=== PATIENT | female | born 1960 | race Caucasian/White ===

== ENCOUNTER → 2017-05-22 | Outpatient (CLI) | payer MEDICARE, BC ==
--- NOTE | 2017-05-22 11:20 | BD ---
EXAMINATION TYPE: MG DEXA axial skeleton. DATE OF EXAM: 05/22/2017 COMPARISON: NONE CLINICAL HISTORY: vitamin D deficiency Height: 5'3 1/2 Weight: 103 FRAX RISK QUESTIONS: Alcohol (3 or more units per day): no Family History (Parent hip fracture): no Glucocorticoids (More than 3mos): no (Ex: prednisone, prednisolone, methylprednisolone, dexamethasone, and hydrocortisone). History of Fracture in Adulthood: no Secondary Osteoporosis: 1. Type 1 Diabetes: no 2. Hyperthyroidism: no 3. Menopause before 45: yes 4. Malnutrition: no 5. Chronic liver disease: no Rheumatoid Arthritis: yes Current Tobacco Use: yes RISK FACTORS HISTORY OF: Diet low in dairy products/other sources of calcium: Postmenopausal woman: MEDICATIONS: Additional Medications: blood pressure, cholesterol, pain meds, muscle relaxers, folic acid, Additional History: EXAM MEASUREMENTS: Bone mineral densitometry was performed using the youcalc System. Bone mineral density as measured about the Lumbar spine is: ----- L1-L4(G/cm2): 1.103 T Score Values are as follows: ----- L2: -1.4 ----- L3: -0.3 ----- L4: 0.7 ----- L1-L4:-0.6 Bone mineral density about the R hip (g/cm2): 0.835 Bone mineral density about the L hip (g/cm2): 0.852 T Score values are as follows: -----R Neck: -1.5 -----L Neck: -1.3 -----R Total: -0.9 -----L Total: -0.9 IMPRESSION: Osteopenia (T Score between -2.5 and -1 ) as noted by T score values:L2, Jorge Hips There is slightly increased risk of fracture and the patient may be considered for treatment. Re-Screen 2-5 years. NOTE: T-SCORE=SD OF THE YOUNG ADULT MEAN.
== END | disposition home or self-care (01) ==
LOC: RADBDWWP 09:12
PROVIDERS: ATTEND Psychiatry & Neurology Neurology
DX: Z01.818 Encounter for other preprocedural examination (principal); M85.89 Other specified disorders of bone density and structure, multiple sites; E55.9 Vitamin D deficiency, unspecified
CPT/HCPCS: 77080

== ENCOUNTER → 2017-05-28 | Outpatient (CLI) | payer MEDICARE, BC ==
[2017-05-28 18:22] LABS: Prothrombin Time 10.2 sec (9.0-12.0)
[2017-05-28 18:24] LABS: Appearance,Urine Clear (Clear); Bilirubin,Urine Negative (Negative); Glucose,Urine (UA) Negative (Negative); Ketones,Urine Negative (Negative); Leukocyte Esterase,Urine Negative (Negative); Nitrite,Urine Negative (Negative); PH, Urine 6.5 (5.0-8.0); Protein,Urine Negative (Negative); Specific Gravity,Urine 1.008 (1.001-1.035); UA Billing (MACRO vs. MICRO) CHEM; Urobilinogen,Urine <2.0 mg/dL (<2.0)
--- NOTE | 2017-05-28 18:25 | CT ---
EXAMINATION TYPE: CT CervThoracic spine wo con DATE OF EXAM: 05/28/2017 COMPARISON: CT scan cervical spine 05/02/2014 HISTORY: Patient complains of chronic neck pain. CT DLP: 482.1 mGycm Automated exposure control for dose reduction was used. FINDINGS: There is straightening of the cervical spine with multilevel old fusion surgery from C4 to C7. There is 2 mm anterior subluxation of C7 in relation to T1 with kyphotic deformity. There is posterior fusi on surgery at C6-7. There is narrowing at C7-T1 disc space with anterior spurring and vacuum disc. I see no acute fracture. Thoracic vertebra have fairly normal alignment. There is minor spurring of the endplates. Posterior e lements are intact. There is no thoracic paraspinal mass. I see no thoracic compression fracture. Pos terior elements of the thoracic spine are intact. IMPRESSION: MULTILEVEL FUSION SURGERY FROM C4 TO C7. THERE IS A MILD C6-7 SUBLUXATION 3 MM DEFORMITY WITH THE FUS ION. SINCE THE LAST CT SCAN THERE IS DEVELOPMENT OF A KYPHOTIC CURVATURE AND MILD SUBLUXATION DEFORMITY AT C7-T1 WITH DISC SPACE NARROWING AND VACUUM DISC. NO FRACTURE IS SEEN. THIS IS EVIDENCE OF A DEVELOPI NG INSTABILITY. NO COMPRESSION FRACTURE SEEN IN THE CERVICAL AND THORACIC SPINE.
[2017-05-28 18:33] LABS: Basophils # (A) 0.1 k/uL (0-0.2); Basophils % (A) 1 %; CH 38.2; CHCM 32.5; Eosinophils # (A) 0.1 k/uL (0-0.7); Eosinophils % (A) 1 %; HCT 51.6 % (34.0-46.0); HDW 2.13; HGB 16.7 gm/dL (11.4-16.0); Luc # (Auto) 0.13; Luc % (Auto) 2; Lymphocytes # (A) 2.3 k/uL (1.0-4.8); Lymphocytes % (A) 27 %; MCH 38.2 pg (25.0-35.0); MCHC 32.4 g/dL (31.0-37.0); MCV 117.9 fL (80.0-100.0); Macrocytosis Marked; Mean Platelet Volume 7.8; Monocytes # (A) 0.6 k/uL (0-1.0); Monocytes % (A) 7 %; Neutrophils # (A) 5.4 k/uL (1.3-7.7); Neutrophils % (A) 62 %; RBC 4.38 m/uL (3.80-5.40); RDW 12.1 % (11.5-15.5); WBC 8.6 k/uL (3.8-10.6); WBC (Perox) 8.82
[2017-05-28 18:53] LABS: Potassium 4.1 mmol/L (3.5-5.1); Total Bilirubin 0.4 mg/dL (0.2-1.3); Total Protein 7.2 g/dL (6.3-8.2)
[2017-05-28 18:55] LABS: Manual Review Performed; Stomatocytes Present
--- NOTE | 2017-05-28 19:19 | CT ---
EXAMINATION TYPE: CT angio head neck DATE OF EXAM: 05/28/2017 HISTORY: Patient complains of chronic neck pain. COMPARISON: NONE CT DLP: 201.5 mGycm. Automated Exposure Control for Dose Reduction was Utilized. TECHNIQUE: CTA scan of the neck is performed with IV Contrast, patient injected with 65 mL of Omnipa que 350, axial images are obtained, coronal and sagittal reformatted images are reviewed. Three-D rec onstructed images are created on an independent workstation and reviewed. FINDINGS: There is normal branching pattern of the great vessels on the aortic arch. There is bilateral patency of the vertebral arteries which are fairly symmetric. There is patency of the common internal and external carotid arteries bilaterally. There is atheroscl erotic plaque at the carotid artery bifurcations. There is luminal narrowing of approximately 40% at the origin of the right internal carotid artery. There is lumen narrowing of 25% at the origin left i nternal carotid artery. There is no evidence of carotid dissection. There is arterial flow in the [place] tebrobasilar artery system. Jugular veins appear normal at the skull base. CONCLUSION: Mild atherosclerotic vascular disease. Mild stenosis at the origins of the internal carotid arteries as above.
[2017-05-29 04:06] LABS: Iron Saturation 39.39 (12.00-45.00); Iron(FE) 130 ug/dL (50-170); Total Iron Binding Capacity 330 ug/dL (228-460)
== END | disposition home or self-care (01) ==
LOC: RADCTMAIN 17:00
PROVIDERS: ATTEND Psychiatry & Neurology Neurology
DX: S13.171A Dislocation of C6/C7 cervical vertebrae, initial encounter (principal); S13.181A Dislocation of C7/T1 cervical vertebrae, initial encounter; M48.03 Spinal stenosis, cervicothoracic region; I65.23 Occlusion and stenosis of bilateral carotid arteries; Z01.812 Encounter for preprocedural laboratory examination; I10 Essential (primary) hypertension; E53.8 Deficiency of other specified B group vitamins; E55.9 Vitamin D deficiency, unspecified; Z13.9 Encounter for screening, unspecified; Z98.1 Arthrodesis status
CPT/HCPCS: 84134; 86803; 80061; 80053; 82607; 82728; 83540; 83550; 85025; 85610; 81003; 84466; 82306; 83036; 72128; 72125; 70496; 70498; 36415; Q9967

== ENCOUNTER 2017-09-23 15:05 | Inpatient (IN) | payer MEDICARE, BC ==
[2017-09-23] MEDS ORDERED: SODIUM CHLORIDE 0.9% 1,000 ML IV STA (15:13)
[2017-09-23] MEDS ORDERED: MAGNESIUM SULFATE-D5W PMX 1 GM in DEXTROSE/WATER 1 100ML.BAG IVPB ONE (15:15)
--- NOTE | 2017-09-23 15:19 | ED ---
URI HPI - General Chief Complaint: Upper Respiratory Infection Stated Complaint: LEONARDO Time Seen by Provider: 09/23/17 15:05 Source: patient, RN notes reviewed Mode of arrival: EMS Limitations: no limitations - History of Present Illness Initial Comments: This is a 56-year-old female history of chronic asthmatic bronchitis who states she had the onset about 6 days ago of some shortness of breath cough and she states rhinorrhea when she would take her updraft treatments she was started on Levaquin 500 mg as well as a nebulizer treatment. She states she's gotten progressively worse he was seen by her doctor yesterday and started on 750 mg of Levaquin and other medication. She states she get worse EMS was called today he had a pulse ox of about 70% on room air she had very diminished breath sounds after an updraft was at home she was given a second DuoNeb treatment in route by EMS. She is starting get some increased lung sounds and improvement in her pulse oximetry. She also had a temperature 103 over last 1 or 2 days. No overt phlegm production he does have some occasional chest discomfort she states it was more last week when the symptoms started nothing at this time. No other constitutional symptoms reported at this time. MD Complaint: fever, cough - Related Data Home Medications Medication Instructions Recorded Confirmed Butalbit/Acetamin/Caff/Codeine 1 cap PO TID PRN 11/27/13 09/23/17 [Fioricet W/Codeine 83-65-157-40 Cap] Cholecalciferol [Vitamin D3] 2,000 unit PO DAILY 11/27/13 09/23/17 Folic Acid 1 mg PO DAILY 11/27/13 09/23/17 Ondansetron HCl [Zofran] 8 mg PO TID PRN 11/27/13 09/23/17 Pantoprazole Sodium [Protonix] 40 mg PO BID 11/27/13 09/23/17 Pyridoxine [Vitamin B-6] 100 mg PO DAILY 11/27/13 09/23/17 Sennosides-Docusate Sodium 2 tab PO HS 11/27/13 09/23/17 [Senokot-S] Zolpidem [Ambien] 10 mg PO HS 11/27/13 09/23/17 valACYclovir HCL [Valtrex] 1,000 mg PO DAILY 11/27/13 09/23/17 Baclofen [Lioresal] 10 mg PO BID 05/02/14 09/23/17 Baclofen 20 mg PO HS 07/21/14 09/23/17 ALPRAZolam [Xanax] 0.5 mg PO BID 09/23/17 09/23/17 ALPRAZolam [Xanax] 1 mg PO HS 09/23/17 09/23/17 Calcium/Magnesium 1 cap PO BID 09/23/17 09/23/17 Cyanocobalamin [Vitamin B-12 1,000 mcg SQ Q14D 09/23/17 09/23/17 Injection] Ferrous Sulfate [Feosol] 325 mg PO DAILY 09/23/17 09/23/17 Gabapentin [Neurontin] 100 mg PO TID 09/23/17 09/23/17 Hydrochlorothiazide [Hydrodiuril] 25 mg PO DAILY 09/23/17 09/23/17 Ipratropium-Albuterol Nebulize 3 ml INHALATION RT-QID PRN 09/23/17 09/23/17 [Duoneb 0.5 mg-3 mg/3 ml Soln] Levofloxacin [Levaquin] 500 mg PO DAILY 09/23/17 09/23/17 Levothyroxine Sodium [Synthroid] 50 mcg PO DAILY 09/23/17 09/23/17 Melatonin 10 mg PO HS 09/23/17 09/23/17 Mometasone/Formoterol [Dulera 200 2 puff INHALATION RT-BID 09/23/17 09/23/17 Mcg/5 Mcg Inhaler] Nebivolol HCl [Bystolic] 20 mg PO DAILY 09/23/17 09/23/17 amLODIPine [Norvasc] 2.5 mg PO HS 09/23/17 09/23/17 amLODIPine [Norvasc] 5 mg PO DAILY 09/23/17 09/23/17 cycloSPORINE [Restasis] 1 drop BOTH EYES BID 09/23/17 09/23/17 oxyCODONE-APAP 10-325MG [Percocet 1 tab PO QID PRN 09/23/17 09/23/17 10-325 mg] Allergies Allergy/AdvReac Type Severity Reaction Status Date / Time enoxaparin sodium Allergy Severe "welts" Verified 09/23/17 16:50 [From Lovenox] morphine sulfate Allergy Severe uncontroled Verified 09/23/17 16:50 [From Shania] muscles pregabalin [From Lyrica] Allergy Severe Swelling,rash Verified 09/23/17 16:50 all over body amoxicillin [From Augmentin] Allergy Unknown Verified 09/23/17 16:50 atomoxetine HCl Allergy Rash/Hives Verified 09/23/17 16:50 [From Strattera] ceftriaxone [From Rocephin] Allergy Unknown Verified 09/23/17 16:50 cefuroxime [From Ceftin] Allergy Unknown Verified 09/23/17 16:50 clarithromycin [From Biaxin] Allergy Rash/Hives Verified 09/23/17 16:50 clavulanic acid Allergy Unknown Verified 09/23/17 16:50 [From Augmentin] duloxetine HCl Allergy Rash/Hives Verified 09/23/17 16:50 [From Cymbalta] fentanyl Allergy Unknown Verified 09/23/17 16:50 metoprolol Allergy Unknown Verified 09/23/17 16:50 NSAIDS (Non-Steroidal Allergy bleeding Verified 09/23/17 16:50 Anti-Inflamma ulcer valsartan [From Diovan] Allergy Unknown Verified 09/23/17 16:50 warfarin sodium Allergy Rash/Hives Verified 09/23/17 16:50 [From Coumadin] axetil Allergy Rash/Hives Uncoded 09/23/17 15:11 Review of Systems ROS Statement: Those systems with pertinent positive or pertinent negative responses have been documented in the HPI. ROS Other: All systems not noted in ROS Statement are negative. Past Medical History Past Medical History: Fibromyalgia, GERD/Reflux, Hypertension, Osteoarthritis ( OA), Pneumonia, Renal Disease Additional Past Medical History / Comment(s): degenerative disc disease; ARTHRITIS; MIGRAINES:inner ear equilbrium issue, some renal stenosis, Reynauds disease History of Any Multi-Drug Resistant Organisms: None Reported Past Surgical History: Appendectomy, Cholecystectomy, Hysterectomy, Orthopedic Surgery, Tubal Ligation Additional Past Surgical History / Comment(s): 3 cervical fusions. ovarian cystMENISCUS SX; SHOULDER SX; CARPAL TUNNEL SX Past Anesthesia/Blood Transfusion Reactions: Motion Sickness Past Psychological History: No Psychological Hx Reported Smoking Status: Former smoker Past Alcohol Use History: Occasional Past Drug Use History: None Reported - Past Family History Father Family Medical History: Cancer Mother Family Medical History: Deep Vein Thrombosis (DVT) General Exam - General Exam Comments Initial Comments: This is a well-developed asthenic awake alert oriented 3 female she is in some distress. There is audible wheezing without auscultation. Limitations: no limitations General appearance: alert, in no apparent distress Head exam: Present: atraumatic, normocephalic, normal inspection Eye exam: Present: normal appearance, PERRL, EOMI. Absent: scleral icterus, conjunctival injection, periorbital swelling ENT exam: Present: mucous membranes dry Neck exam: Present: normal inspection. Absent: tenderness, meningismus, lymphadenopathy Respiratory exam: Present: respiratory distress, wheezes, chest wall tenderness , accessory muscle use, decreased breath sounds. Absent: rales, rhonchi, stridor Cardiovascular Exam: Present: normal rhythm, tachycardia, normal heart sounds. Absent: systolic murmur, diastolic murmur, rubs, gallop, clicks GI/Abdominal exam: Present: soft, normal bowel sounds. Absent: distended, tenderness, guarding, rebound, rigid Extremities exam: Present: normal inspection, full ROM, normal capillary refill. Absent: tenderness, pedal edema, joint swelling, calf tenderness Back exam: Present: normal inspection Neurological exam: Present: alert, oriented X3, CN II-XII intact Psychiatric exam: Present: normal affect, normal mood Skin exam: Present: warm, dry, intact, normal color. Absent: rash Course Vital Signs 18 18 15:07 17:11 Temperature 102.1 F H 100.1 F H Pulse Rate 101 H 86 Respiratory 24 24 Rate Blood Pressure 98/55 102/55 O2 Sat by Pulse 93 L 94 L Oximetry - Reevaluation(s) Reevaluation #1: 09/23/17 17:18 Patient shortly after arrival revealed diffuse wheezing patient states she felt somewhat better. Reevaluation #2: 09/23/17 17:20 Reevaluation showed no change in patient's status no major improvement however she is not any worse. He does state she feels a little bit better with respect to her breathing. Medical Decision Making - Medical Decision Making Patient does not have a elevated white count she doesn't have a fever when she came in. There is patchy infiltrates noted. This is consistent with CHF however due to the fever pneumonia as not ruled out I did discuss case with Dr. Cooper patient will be admitted - Lab Data Result diagrams: 09/23/17 15:49 09/23/17 15:49 Lab Results 09/23/17 09/23/17 09/23/17 Range/Units 15:49 15:49 15:49 WBC 8.6 (3.8-10.6) k/uL RBC 3.57 L (3.80-5.40) m/uL Hgb 13.1 (11.4-16.0) gm/dL Hct 38.1 (34.0-46.0) % MCV 106.6 H (80.0-100.0) fL MCH 36.6 H (25.0-35.0) pg MCHC 34.3 (31.0-37.0) g/dL RDW 12.0 (11.5-15.5) % Plt Count 189 (150-450) k/uL Neutrophils % 85 % Lymphocytes % 8 % Monocytes % 5 % Eosinophils % 0 % Basophils % 0 % Neutrophils # 7.3 (1.3-7.7) k/uL Lymphocytes # 0.7 L (1.0-4.8) k/uL Monocytes # 0.4 (0-1.0) k/uL Eosinophils # 0.0 (0-0.7) k/uL Basophils # 0.0 (0-0.2) k/uL Macrocytosis Slight PT (9.0-12.0) sec INR (<1.2) APTT (22.0-30.0) sec D-Dimer (<0.60) mg/L FEU Sodium 133 L (137-145) mmol/L Potassium 3.5 (3.5-5.1) mmol/L Chloride 95 L (98-107) mmol/L Carbon Dioxide 29 (22-30) mmol/L Anion Gap 9 mmol/L BUN 17 (7-17) mg/dL Creatinine 0.90 (0.52-1.04) mg/dL Est GFR (CKD-EPI)AfAm 84 (>60 ml/min/1.73 sqM) Est GFR (CKD-EPI)NonAf 73 (>60 ml/min/1.73 sqM) Glucose 90 (74-99) mg/dL Plasma Lactic Acid Carlos (0.7-2.0) mmol/L Calcium 8.1 L (8.4-10.2) mg/dL Magnesium 1.6 (1.6-2.3) mg/dL Total Bilirubin 0.8 (0.2-1.3) mg/dL AST 49 H (14-36) U/L ALT 38 (9-52) U/L Alkaline Phosphatase 232 H (38-126) U/L Total Creatine Kinase 192 H (30-135) U/L CK-MB (CK-2) 4.0 H* (0.0-2.4) ng/mL CK-MB (CK-2) Rel Index 2.1 Troponin I <0.012 (0.000-0.034) ng/mL NT-Pro-B Natriuret Pep pg/mL Total Protein 5.2 L (6.3-8.2) g/dL Albumin 2.8 L (3.5-5.0) g/dL Influenza Type A RNA (Not Detectd) Influenza Type B (PCR) (Not Detectd) 09/23/17 09/23/17 09/23/17 Range/Units 15:49 15:49 15:49 WBC (3.8-10.6) k/uL RBC (3.80-5.40) m/uL Hgb (11.4-16.0) gm/dL Hct (34.0-46.0) % MCV (80.0-100.0) fL MCH (25.0-35.0) pg MCHC (31.0-37.0) g/dL RDW (11.5-15.5) % Plt Count (150-450) k/uL Neutrophils % % Lymphocytes % % Monocytes % % Eosinophils % % Basophils % % Neutrophils # (1.3-7.7) k/uL Lymphocytes # (1.0-4.8) k/uL Monocytes # (0-1.0) k/uL Eosinophils # (0-0.7) k/uL Basophils # (0-0.2) k/uL Macrocytosis PT 10.8 (9.0-12.0) sec INR 1.1 (<1.2) APTT 27.6 (22.0-30.0) sec D-Dimer 0.64 H (<0.60) mg/L FEU Sodium (137-145) mmol/L Potassium (3.5-5.1) mmol/L Chloride (98-107) mmol/L Carbon Dioxide (22-30) mmol/L Anion Gap mmol/L BUN (7-17) mg/dL Creatinine (0.52-1.04) mg/dL Est GFR (CKD-EPI)AfAm (>60 ml/min/1.73 sqM) Est GFR (CKD-EPI)NonAf (>60 ml/min/1.73 sqM) Glucose (74-99) mg/dL Plasma Lactic Acid Carlos (0.7-2.0) mmol/L Calcium (8.4-10.2) mg/dL Magnesium (1.6-2.3) mg/dL Total Bilirubin (0.2-1.3) mg/dL AST (14-36) U/L ALT (9-52) U/L Alkaline Phosphatase (38-126) U/L Total Creatine Kinase (30-135) U/L CK-MB (CK-2) (0.0-2.4) ng/mL CK-MB (CK-2) Rel Index Troponin I (0.000-0.034) ng/mL NT-Pro-B Natriuret Pep 5020 pg/mL Total Protein (6.3-8.2) g/dL Albumin (3.5-5.0) g/dL Influenza Type A RNA Not Detected (Not Detectd) Influenza Type B (PCR) Not Detected (Not Detectd) 09/23/17 Range/Units 15:49 WBC (3.8-10.6) k/uL RBC (3.80-5.40) m/uL Hgb (11.4-16.0) gm/dL Hct (34.0-46.0) % MCV (80.0-100.0) fL MCH (25.0-35.0) pg MCHC (31.0-37.0) g/dL RDW (11.5-15.5) % Plt Count (150-450) k/uL Neutrophils % % Lymphocytes % % Monocytes % % Eosinophils % % Basophils % % Neutrophils # (1.3-7.7) k/uL Lymphocytes # (1.0-4.8) k/uL Monocytes # (0-1.0) k/uL Eosinophils # (0-0.7) k/uL Basophils # (0-0.2) k/uL Macrocytosis PT (9.0-12.0) sec INR (<1.2) APTT (22.0-30.0) sec D-Dimer (<0.60) mg/L FEU Sodium (137-145) mmol/L Potassium (3.5-5.1) mmol/L Chloride (98-107) mmol/L Carbon Dioxide (22-30) mmol/L Anion Gap mmol/L BUN (7-17) mg/dL Creatinine (0.52-1.04) mg/dL Est GFR (CKD-EPI)AfAm (>60 ml/min/1.73 sqM) Est GFR (CKD-EPI)NonAf (>60 ml/min/1.73 sqM) Glucose (74-99) mg/dL Plasma Lactic Acid Carlos 1.1 (0.7-2.0) mmol/L Calcium (8.4-10.2) mg/dL Magnesium (1.6-2.3) mg/dL Total Bilirubin (0.2-1.3) mg/dL AST (14-36) U/L ALT (9-52) U/L Alkaline Phosphatase (38-126) U/L Total Creatine Kinase (30-135) U/L CK-MB (CK-2) (0.0-2.4) ng/mL CK-MB (CK-2) Rel Index Troponin I (0.000-0.034) ng/mL NT-Pro-B Natriuret Pep pg/mL Total Protein (6.3-8.2) g/dL Albumin (3.5-5.0) g/dL Influenza Type A RNA (Not Detectd) Influenza Type B (PCR) (Not Detectd) - EKG Data -: EKG Interpreted by [place] EKG shows normal: sinus rhythm (Sinus rhythm rate of 100. Interval 146 QRS duration 68 QT since QTC 332/428 by atrial enlargement nonspecific septal changes. Artifact is present a single unifocal PVC was noted.) - Radiology Data Radiology results: report reviewed (Review the x-ray shows evidence of patchy infiltrates), image reviewed Critical Care Time Critical Care Time: Yes Critical Care Time: 39 minutes which includes monitoring the EMS run and discussed with paramedics history physical labs x-rays. Several reevaluation patient responsive therapy. Discussion with the patient regarding findings discussion with the admitting physician admission orders and documentation of the above Disposition Clinical Impression: Congestive heart failure (CHF), Chronic obstructive pulmonary disease with acute exacerbation, Pneumonia, Febrile illness, acute, Failure of outpatient treatment Disposition: ADMITTED IP TO THIS [facility] Condition: Stable Referrals: Deandre Landa MD [Primary Care Provider] - 1-2 days
[2017-09-23 16:11] LABS: Basophils % (A) 0 %; Eosinophils % (A) 0 %; HCT 38.1 % (34.0-46.0); HGB 13.1 gm/dL (11.4-16.0); Lymphocytes # (A) 0.7 k/uL (1.0-4.8); Lymphocytes % (A) 8 %; MCH 36.6 pg (25.0-35.0); MCHC 34.3 g/dL (31.0-37.0); MCV 106.6 fL (80.0-100.0); Macrocytosis Slight; Monocytes # (A) 0.4 k/uL (0-1.0); Monocytes % (A) 5 %; Neutrophils # (A) 7.3 k/uL (1.3-7.7); Neutrophils % (A) 85 %; Platelet Count 189 k/uL (150-450); RBC 3.57 m/uL (3.80-5.40); WBC 8.6 k/uL (3.8-10.6)
--- NOTE | 2017-09-23 16:18 | XR ---
EXAMINATION TYPE: XR chest 2V DATE OF EXAM: 09/23/2017 COMPARISON: 08/05/2014 HISTORY: 56-year-old female with shortness of breath and difficulty breathing TECHNIQUE: PA and lateral views FINDINGS: Heart upper limits of normal size. Hyperinflation. Diffuse interstitial and patchy airspace densities throughout the lungs, right greater than left. No pleural effusion. IMPRESSION: Patchy infiltrates throughout the lungs, right greater than left. Correlate for pneumonia including a typical infections and interstitial pneumonitis. The lack of cardiomegaly and effusions argues agains t CHF. Clinically correlate.
[2017-09-23] MEDS ORDERED: ACETAMINOPHEN TAB 325 MG TAB PO STA (16:19)
[2017-09-23 16:20] LABS: Albumin 2.8 g/dL (3.5-5.0); Calcium 8.1 mg/dL (8.4-10.2); Magnesium 1.6 mg/dL (1.6-2.3); Potassium 3.5 mmol/L (3.5-5.1); Total Bilirubin 0.8 mg/dL (0.2-1.3); Total Protein 5.2 g/dL (6.3-8.2)
[2017-09-23 16:26] LABS: D-Dimer 0.64 mg/L FEU (<0.60); INR 1.1 (<1.2); Partial Thromboplastin Time 27.6 sec (22.0-30.0); Prothrombin Time 10.8 sec (9.0-12.0)
[2017-09-23 16:42] LABS: Creatine Kinase 192 U/L (30-135)
[2017-09-23 16:55] LABS: Troponin I <0.012 ng/mL (0.000-0.034)
[2017-09-23] MEDS ORDERED: LEVOFLOXACIN 750MG-D5W PMX 750 MG in DEXTROSE/WATER 1 150ML.BAG IVPB STA (17:22)
[2017-09-23] MEDS ORDERED: FUROSEMIDE 10 MG/ML 4 ML VIAL IV STA (17:24)
[2017-09-23] MEDS: SODIUM CHLORIDE 0.9% 1,000 ML IV SCH (18:06)
[2017-09-23] MEDS ORDERED: NALOXONE 0.4 MG/ML 1 ML VIAL IV PRN (18:46)
[2017-09-23] MEDS ORDERED: LORazepam 0.5 MG TAB PO PRN (18:46)
[2017-09-23] MEDS ORDERED: MELATONIN 3 MG TABLET PO PRN (18:46)
[2017-09-23] MEDS ORDERED: methylPREDNISolone SOD SUCCI 125 MG/2 ML VIAL IV SCH (19:30)
[2017-09-23] MEDS: IPRATROPIUM-ALBUTEROL 3 ML NEB INHALATION SCH ×2 (19:49→23:49)
[2017-09-23] MEDS: ONDANSETRON 4 MG/2 ML VIAL IVP PRN (20:27)
[2017-09-23] MEDS: PANTOPRAZOLE 40 MG TABLET PO SCH (21:21)
[2017-09-23 21:25] LABS: Glucose,Whole Blood 168 mg/dL (75-99)
[2017-09-23] MEDS ORDERED: HEPARIN SODIUM,PORCINE 5,000 UNIT/ML 1 ML VIAL SQ SCH (22:45)
[2017-09-23] MEDS: ZOLPIDEM 10 MG TAB PO SCH (22:54)
[2017-09-23] MEDS: amLODIPine 2.5 MG TAB PO SCH (22:54)
[2017-09-23] MEDS: ALPRAZolam 1 MG TAB PO SCH (22:54)
[2017-09-23] MEDS: SENNOSIDES-DOCUSATE SODIUM 1 EACH TAB PO SCH (22:54)
[2017-09-23] MEDS: MELATONIN 5 MG TABLET PO SCH (22:56)
[2017-09-23] MEDS: BACLOFEN 10 MG TAB PO SCH (22:56)
[2017-09-23] MEDS: cycloSPORINE 0.05% OPHTH 0.4 ML DROPERETTE BOTH EYES SCH (22:57)
[2017-09-23] MEDS: GABAPENTIN 100 MG CAP PO SCH (22:57)
[2017-09-23] MEDS: CALCIUM CARB-MAG CARB-FOLIC 1 EACH TAB PO SCH (22:58)
[2017-09-23] MEDS: oxyCODONE-APAP 10-325MG 1 EACH TAB PO PRN (22:58)
[2017-09-23] MEDS: guaiFENesin 600 MG TABLET.ER PO SCH (23:04)
[2017-09-23] MEDS: HEPARIN SODIUM,PORCINE 5,000 UNIT/ML 1 ML VIAL SQ SCH (23:04)
--- NOTE | 2017-09-23 23:51 | HP ---
HISTORY AND PHYSICAL DATE OF ADMISSION: September 23, 2017 PRESENT COMPLAINT: Cough, short of breath. HISTORY OF PRESENTING COMPLAINT: This is a pleasant 56-year-old patient of Dr. Landa whose chronic stable medical conditions include chronic pain, fibromyalgia, GERD, hypertension, osteoarthritis, Raynaud's. The patient was going to see family doctor Dr. Landa last Saturday with some respiratory symptoms and was given Levaquin 500 mg. Symptoms did get better. She was having 1 more cough. Initially dry. Started having fever, chills, decreased appetite. Tired, run down. She went back, dose of Levaquin was increased. As the patient started feeling more congested and started bringing up phlegm yellow-green color and even having more fevers, she finally decided to come in, feeling weak, tired, run down. REVIEW OF SYSTEMS: Constitutional: Fever, chills. HEENT as above. Respiratory as above. Cardiovascular none. Gastrointestinal heartburn. Genitourinary none. MUSCULOSKELETAL: Aches and pains in joints. Dermatological and hematologic, lymphatic none. Psychiatry none. Neurological none. Musculoskeletal: Aches and pains in muscles and joints. PAST MEDICAL HISTORY: COPD, panic attacks, chronic pain, fibromyalgia, GERD, hypertension, osteoarthritis, Raynaud. PAST SURGICAL HISTORY: Appendectomy, back surgery, cholecystectomy, hysterectomy, orthopedic surgery, tubal ligation, cervical fusion, shoulder surgery, carpal tunnel surgery. SOCIAL HISTORY: The patient lives with her and daughter, medically disabled. The patient smoked for about 35 years about a pack a day, stopped about 2 years ago. FAMILY HISTORY: Of cancer and bilateral renal artery stenosis. HOME MEDICATIONS: 1. Valtrex 1000 mg p.o. daily. 2. Percocet 10 1 tab p.o. q.i.d. p.r.n. 3. Restasis 1 drop both eyes b.i.d. 4. Norvasc 5 mg p.o. daily. 5. Norvasc 2.5 mg p.o. q.h.s. 6. Ambien 10 mg p.o. q.h.s. 7. Senokot-S 2 tablets p.o. q.h.s. 8. Vitamin B6 100 mg p.o. daily. 9. Protonix 40 mg p.o. b.i.d. 10.Zofran 8 mg p.o. t.i.d. p.r.n. 11.Bystolic 20 mg p.o. daily. 12.Dulera 200/5 2 puffs b.i.d. 13.Melatonin 10 mg q.h.s. 14.Synthroid 50 mcg p.o. daily. 15.Levaquin 500 mg p.o. daily. 16.DuoNeb 3 mL q.i.d. p.r.n. 17.Hydrochlorothiazide 25 mg p.o. daily. 18.Neurontin 100 mg p.o. t.i.d. 19.Folic acid 1 mg p.o. daily. 20.Iron 325 p.o. daily. 21.Vitamin B12 1000 mcg subcu every 14 days. 22.Vitamin D3 2000 units p.o. daily. 23.Calcium/magnesium supplement. 24.Fioricet 1 capsule t.i.d. p.r.n. 25.Baclofen 10 mg b.i.d. 26.Baclofen 20 mg q.h.s. 27.Xanax 0.5 p.o. b.i.d. and 1 mg p.o. q.h.s. ALLERGIES: LIST IS LONG TO INCLUDE LOVENOX, MORPHINE, LYRICA, AMOXICILLIN AND CEFTRIAXONE, CEFUROXIME, BIAXIN AND AUGMENTIN, CYMBALTA, FENTANYL, METOPROLOL, IRON SULFATE, LOSARTAN, , . PHYSICAL EXAMINATION: Temperature 102.1, pulse 101, respirations 24, blood pressure 98/55, pulse ox 93% on 2 L. General appearance: Very thin built, sitting up, tired appearing. BMI 17.9. Eyes pupil equals. Conjunctivae pale. HEENT external appearance of nose and ears normal. Oral cavity normal. Neck JVD not raised. Mass not palpable. Respiratory effort increased. Lungs decreased breath sounds. Prolonged expiration. Bilateral basal crackles. Cardiovascular 1st 2nd sounds normal. No edema. ABDOMEN: Soft, nontender. Liver and spleen not palpable. Lymphatics: No lymph nodes palpable in the neck, axillae or groin. PSYCHIATRY: Alert and oriented x3. Mood and affect anxious-appearing. Neurological: Pupils equal. Cranial nerves grossly intact. Power and sensation grossly intact. Musculoskeletal: Diffuse wasting of the muscles. Bony prominences. INVESTIGATIONS: White count 8.6, hemoglobin 13.1, platelets 189. Potassium 3.5 BUN and creatinine is normal. AST 14, ALT 38, albumin 2.8. Chest x-ray, bilateral infiltrates. ASSESSMENT: 1. Bilateral multilobar pneumonia suspect gram-negative organism causing sepsis. 2. Acute chronic obstructive pulmonary disease exacerbation in an ex-smoker. 3. Chronic pain syndrome. 4. Gastroesophageal reflux disease. 5. Essential hypertension. 6. Primary osteoarthritis multiple joints bilateral. 7. Raynaud's disease. 8. Moderate protein -calorie malnutrition with albumin 2.8, BMI 17.9 diffuse wasting of the muscles. PLAN: Patient is put on IV Levaquin for now. Blood cultures were done. Home medications are resumed. We will also add some Mucinex and a sputum for Gram stain and culture. Consultation to Pulmonary is being made. Prognosis guarded. Care was discussed with the patient. Copy to Dr. Landa. MMFELIPEL / WILBERT: [id number] /
[2017-09-24] MEDS: FUROSEMIDE 10 MG/ML 4 ML VIAL IV SCH ×4 (01:28→23:29)
[2017-09-24] MEDS: IPRATROPIUM-ALBUTEROL 3 ML NEB INHALATION SCH ×5 (03:52→21:08)
[2017-09-24] MEDS: ALPRAZolam 0.5 MG TAB PO SCH ×2 (06:26→16:46)
[2017-09-24] MEDS: LEVOTHYROXINE 50 MCG TAB PO SCH (06:29)
[2017-09-24] MEDS: PANTOPRAZOLE 40 MG TABLET PO SCH ×2 (06:29→16:46)
[2017-09-24] MEDS: BACLOFEN 10 MG TAB PO SCH ×3 (06:29→23:27)
[2017-09-24 06:36] LABS: Glucose,Whole Blood 122 mg/dL (75-99)
[2017-09-24] MEDS: INSULIN ASPART 100 UNIT/ML 1 ML 10 ML VIAL SQ SCH ×4 (06:37→23:08)
[2017-09-24] MEDS: oxyCODONE-APAP 10-325MG 1 EACH TAB PO PRN ×2 (07:01→22:16)
[2017-09-24] MEDS: GABAPENTIN 100 MG CAP PO SCH ×3 (08:42→23:28)
[2017-09-24] MEDS: PYRIDOXINE 50 MG TAB PO SCH (08:42)
[2017-09-24] MEDS: CALCIUM CARB-MAG CARB-FOLIC 1 EACH TAB PO SCH ×2 (08:42→23:26)
[2017-09-24] MEDS: guaiFENesin 600 MG TABLET.ER PO SCH ×2 (08:42→23:26)
[2017-09-24] MEDS: methylPREDNISolone SOD SUCCI 40 MG/ML 1 ML VIAL IV SCH ×2 (08:43→16:46)
[2017-09-24] MEDS: amLODIPine 5 MG TAB PO SCH (08:43)
[2017-09-24] MEDS: CHOLECALCIFEROL 1,000 UNIT TAB PO SCH (08:43)
[2017-09-24] MEDS: HYDROCHLOROTHIAZIDE 25 MG TAB PO SCH (08:44)
[2017-09-24] MEDS: FERROUS SULFATE 325 MG TAB PO SCH (08:44)
[2017-09-24] MEDS: HEPARIN SODIUM,PORCINE 5,000 UNIT/ML 1 ML VIAL SQ SCH ×2 (08:45→23:28)
[2017-09-24] MEDS: NEBIVOLOL 5 MG TAB PO SCH ×2 (08:46→23:27)
[2017-09-24] MEDS: valACYclovir HCL 1,000 MG TABLET PO SCH (08:46)
[2017-09-24] MEDS: FOLIC ACID 1 MG TAB PO SCH (08:46)
[2017-09-24] MEDS: cycloSPORINE 0.05% OPHTH 0.4 ML DROPERETTE BOTH EYES SCH ×2 (08:46→23:27)
[2017-09-24] MEDS: ONDANSETRON 4 MG/2 ML VIAL IVP PRN (10:07)
[2017-09-24 12:13] LABS: Glucose,Whole Blood 125 mg/dL (75-99)
--- NOTE | 2017-09-24 12:53 | P.CNPUL ---
History of Present Illness Consult date: 09/24/17 Requesting physician: Keon Cooper Reason for consult: dyspnea, abnormal CXR/CT Chief complaint: Shortness of breath, cough, congestion History of present illness: This is a very pleasant 56-year-old female patient who follows with Dr. Landa as her primary care physician. She has a history of fibromyalgia, hypertension , recurrent sinusitis, chronic constipation, ventilatory dependent respiratory failure secondary to bilateral pneumonia and influenza A infection in July 2014, TIA. She presented here yesterday with complaints of increasing shortness of breath, cough and congestion. Productive sputum of yellowish reynaga. Fever chills and night sweats. She was treated in the outpatient setting with Levaquin. No significant improvement. She states she had been up visiting her father in [place] who has many exotic birds. She states the cages are not that clean and she usually does have some upper respiratory issues after visiting him. He also is a heavy smoker. She herself is a previous smoker. Her chest x-ray reveals some patchy infiltrates throughout the lungs right greater than left. Possible pneumonia versus atypical infection and interstitial pneumonitis. White count 8.6. Hemoglobin 13.1. ProBNP 5020. Influenza screen is negative. She is seen today in consultation on the selective care unit. She is awake and alert in no acute distress. She does have a loose nonproductive cough currently. Maintaining O2 saturations in the 90s on 4 L/m per nasal cannula. She is afebrile. Hemodynamically stable. His been initiated on IV Levaquin. The patient has multiple ALLERGIES to most antibiotics. She is also on IV Solu-Medrol, IV Lasix and bronchodilators. Review of Systems 14 point review of systems was conducted. All negative other than as mentioned in the HPI. Past Medical History Past Medical History: Asthma, Chest Pain / Angina, Fibromyalgia, GERD/Reflux, Hypertension, Osteoarthritis (OA), Pneumonia, Renal Disease Additional Past Medical History / Comment(s): degenerative disc disease; ARTHRITIS; MIGRAINES:inner ear equilbrium issue, some renal stenosis, Reynauds disease History of Any Multi-Drug Resistant Organisms: None Reported Past Surgical History: Appendectomy, Back Surgery, Cholecystectomy, Hysterectomy , Orthopedic Surgery, Tubal Ligation Additional Past Surgical History / Comment(s): 3 cervical fusions. ovarian cystMENISCUS SX; SHOULDER SX; CARPAL TUNNEL SX Past Anesthesia/Blood Transfusion Reactions: Motion Sickness Past Psychological History: No Psychological Hx Reported Additional Psychological History / Comment(s): pt. is and lives with her and daughter, pt. is medically disabled, pt. states she does not use any walking aides at home, states her helps care for her Smoking Status: Former smoker Past Alcohol Use History: Occasional Past Drug Use History: None Reported - Past Family History Father Family Medical History: Cancer Mother Family Medical History: Deep Vein Thrombosis (DVT) Medications and Allergies Home Medications Medication Instructions Recorded Confirmed Type Butalbit/Acetamin/Caff/Codeine 1 cap PO TID PRN 11/27/13 09/23/17 History [Fioricet W/Codeine [id number] Cap] Cholecalciferol [Vitamin D3] 2,000 unit PO DAILY 11/27/13 09/23/17 History Folic Acid 1 mg PO DAILY 11/27/13 09/23/17 History Ondansetron HCl [Zofran] 8 mg PO TID PRN 11/27/13 09/23/17 History Pantoprazole Sodium [Protonix] 40 mg PO BID 11/27/13 09/23/17 History Pyridoxine [Vitamin B-6] 100 mg PO DAILY 11/27/13 09/23/17 History Sennosides-Docusate Sodium 2 tab PO HS 11/27/13 09/23/17 History [Senokot-S] Zolpidem [Ambien] 10 mg PO HS 11/27/13 09/23/17 History valACYclovir HCL [Valtrex] 1,000 mg PO DAILY 11/27/13 09/23/17 History Baclofen [Lioresal] 10 mg PO BID 05/02/14 09/23/17 History Baclofen 20 mg PO HS 07/21/14 09/23/17 History ALPRAZolam [Xanax] 0.5 mg PO BID 09/23/17 09/23/17 History ALPRAZolam [Xanax] 1 mg PO HS 09/23/17 09/23/17 History Calcium/Magnesium 1 cap PO BID 09/23/17 09/23/17 History Cyanocobalamin [Vitamin B-12 1,000 mcg SQ Q14D 09/23/17 09/23/17 History Injection] Ferrous Sulfate [Feosol] 325 mg PO DAILY 09/23/17 09/23/17 History Gabapentin [Neurontin] 100 mg PO TID 09/23/17 09/23/17 History Hydrochlorothiazide [Hydrodiuril] 25 mg PO DAILY 09/23/17 09/23/17 History Ipratropium-Albuterol Nebulize 3 ml INHALATION RT-QID PRN 09/23/17 09/23/17 History [Duoneb 0.5 mg-3 mg/3 ml Soln] Levofloxacin [Levaquin] 500 mg PO DAILY 09/23/17 09/23/17 History Levothyroxine Sodium [Synthroid] 50 mcg PO DAILY 09/23/17 09/23/17 History Melatonin 10 mg PO HS 09/23/17 09/23/17 History Mometasone/Formoterol [Dulera 200 2 puff INHALATION RT-BID 09/23/17 09/23/17 History Mcg/5 Mcg Inhaler] Nebivolol HCl [Bystolic] 20 mg PO DAILY 09/23/17 09/23/17 History amLODIPine [Norvasc] 2.5 mg PO HS 09/23/17 09/23/17 History amLODIPine [Norvasc] 5 mg PO DAILY 09/23/17 09/23/17 History cycloSPORINE [Restasis] 1 drop BOTH EYES BID 09/23/17 09/23/17 History oxyCODONE-APAP 10-325MG [Percocet 1 tab PO QID PRN 09/23/17 09/23/17 History 10-325 mg] Allergies Allergy/AdvReac Type Severity Reaction Status Date / Time enoxaparin sodium Allergy Severe "welts" Verified 09/23/17 16:50 [From Lovenox] morphine sulfate Allergy Severe uncontroled Verified 09/23/17 16:50 [From Shania] muscles pregabalin [From Lyrica] Allergy Severe Swelling,rash Verified 09/23/17 16:50 all over body amoxicillin [From Augmentin] Allergy Unknown Verified 09/23/17 16:50 atomoxetine HCl Allergy Rash/Hives Verified 09/23/17 16:50 [From Strattera] ceftriaxone [From Rocephin] Allergy Unknown Verified 09/23/17 16:50 cefuroxime [From Ceftin] Allergy Unknown Verified 09/23/17 16:50 clarithromycin [From Biaxin] Allergy Rash/Hives Verified 09/23/17 16:50 clavulanic acid Allergy Unknown Verified 09/23/17 16:50 [From Augmentin] duloxetine HCl Allergy Rash/Hives Verified 09/23/17 16:50 [From Cymbalta] fentanyl Allergy Unknown Verified 09/23/17 16:50 metoprolol Allergy Unknown Verified 09/23/17 16:50 NSAIDS (Non-Steroidal Allergy bleeding Verified 09/23/17 16:50 Anti-Inflamma ulcer valsartan [From Diovan] Allergy Unknown Verified 09/23/17 16:50 warfarin sodium Allergy Rash/Hives Verified 09/23/17 16:50 [From Coumadin] axetil Allergy Rash/Hives Uncoded 09/23/17 15:11 Physical Exam Vitals: Vital Signs Temp Pulse Pulse Resp BP BP Pulse Ox 09/24/17 12:00 96.7 F L 68 76 18 115/59 94 L 09/24/17 11:47 68 09/24/17 08:25 76 09/24/17 08:14 60 09/24/17 08:00 96.7 F L 64 18 100/57 95 09/24/17 04:35 97.1 F L 70 17 95/51 99 09/24/17 04:10 69 19 09/24/17 04:05 68 09/24/17 03:53 64 09/24/17 00:10 97.0 F L 69 19 109/60 93 L 09/24/17 00:01 72 18 09/23/17 23:50 68 18 09/23/17 20:20 71 20 09/23/17 20:05 96.9 F L 71 19 104/58 96 09/23/17 20:00 72 09/23/17 19:49 70 98 09/23/17 18:59 98.4 F 09/23/17 18:54 76 22 95/53 95 09/23/17 18:02 94 L 09/23/17 18:00 98 F 75 24 88/51 89 L 09/23/17 17:11 100.1 F H 86 24 102/55 94 L 09/23/17 15:07 102.1 F H 101 H 24 98/55 93 L Intake and Output 09/23/17 09/24/17 09/24/17 22:59 06:59 14:59 Output Total 400 800 Balance -400 -800 Output: Urine 400 800 Other: Voiding Method Toilet Toilet Toilet # Voids 2 Weight 45.813 kg 46.3 kg 46.3 kg Patient Weight 09/25/17 06:59 Weight 46.3 kg GENERAL EXAM: Frail, cachectic, comfortable in no apparent distress. HEAD: Normocephalic. EYES: Normal reaction of pupils, equal size. NOSE: Clear with pink turbinates. THROAT: No erythema or exudates. NECK: No masses, no JVD. CHEST: No chest wall deformity. LUNGS: Equal air entry with bilateral wheezing, few scattered rhonchi more so on the right. CVS: S1 and S2 normal with no audible murmur, regular rhythm. ABDOMEN: No hepatosplenomegaly, normal bowel sounds, no guarding or rigidity. SPINE: No scoliosis or deformity SKIN: No rashes CENTRAL NERVOUS SYSTEM: No focal deficits, tone is normal in all 4 extremities. EXTREMITIES: There is no peripheral edema. No clubbing, no cyanosis. Peripheral pulses are intact. Results - Laboratory Findings CBC and BMP: 09/23/17 15:49 09/23/17 15:49 PT/INR, D-dimer PT 10.8 sec (9.0-12.0) 09/23/17 15:49 INR 1.1 (<1.2) 09/23/17 15:49 D-Dimer 0.64 mg/L FEU (<0.60) H 09/23/17 15:49 Abnormal lab findings: Abnormal Labs 09/23/17 09/23/17 09/23/17 15:49 15:49 15:49 RBC 3.57 L MCV 106.6 H MCH 36.6 H Lymphocytes # 0.7 L D-Dimer Sodium 133 L Chloride 95 L POC Glucose (mg/dL) Calcium 8.1 L AST 49 H Alkaline Phosphatase 232 H Total Creatine Kinase 192 H CK-MB (CK-2) 4.0 H* Total Protein 5.2 L Albumin 2.8 L 09/23/17 09/23/17 09/24/17 15:49 21:14 06:34 RBC MCV MCH Lymphocytes # D-Dimer 0.64 H Sodium Chloride POC Glucose (mg/dL) 168 H 122 H Calcium AST Alkaline Phosphatase Total Creatine Kinase CK-MB (CK-2) Total Protein Albumin 09/24/17 11:56 RBC MCV MCH Lymphocytes # D-Dimer Sodium Chloride POC Glucose (mg/dL) 125 H Calcium AST Alkaline Phosphatase Total Creatine Kinase CK-MB (CK-2) Total Protein Albumin - Diagnostic Findings Chest x-ray: image reviewed Assessment and Plan Assessment: Impression: #1 Acute hypoxic respiratory failure secondary to community-acquired pneumonia. Some concern regarding atypical pneumonia with pneumonitis based on her exposure to exotic birds and bird droppings. #2 Previous history of ventilatory dependent respiratory failure secondary to bilateral multilobar pneumonia and influenza A infection in July 2014. #3 History of chronic tobacco dependence. #4 Fibromyalgia. #5 Hypertension. #6 Anxiety. #7 Chronic pain syndrome. #8 Chronic sinusitis with multiple sinus surgeries. Plan: The patient was seen and evaluated by Dr. Shook. Her chest x-ray and labs were reviewed. We'll continue with IV Levaquin for now however the patient failed oral Levaquin in the outpatient setting at both 500 and 750 mg. We'll consult infectious disease. We'll continue with bronchodilators IV Solu-Medrol , Mucinex. She is on heparin for DVT prophylaxis. We'll repeat her chest x- ray in the a.m. We'll continue to follow and make further recommendations based on her clinical status. I, the cosigning physician, performed a history & physical examination of the patient. Lungs sounds bilateral end expiratory wheeze, few scattered rhonchi more so in the right. Maintaining good O2 saturations in the 90s on 4 L/m per nasal cannula. I discussed the assessment and plan of care with my nurse practitioner, Soco Schulz. I attest to the above note as dictated by her. Time with Patient: Greater than 30
--- NOTE | 2017-09-24 16:55 | PN ---
PROGRESS NOTE DATE OF SERVICE: 09/24/2017 PRESENTING COMPLAINT: Cough, short of breath. INTERVAL HISTORY: This pleasant lady was admitted with multilobar pneumonia, COPD exacerbation. She has a cough and had a lot of sputum production which is slightly coming down. Did tolerate some breakfast. Rather tired. Still coughing a bit. REVIEW OF SYSTEMS: Done for constitutional, cardiovascular, GI, pulmonary; relevant findings as above. CURRENT MEDICATIONS: Current medications are reviewed that include IV Levaquin and IV Solu-Medrol. PHYSICAL EXAMINATION: Temperature 96.9, pulse 76, respiration 18, blood pressure 115/56, pulse ox 95% on 4 L. GENERAL APPEARANCE: Sitting up in bed. Tired-appearing. EYES: Pupils equal. Conjunctivae normal. HEENT: External appearance of nose and ears normal. Oral cavity normal. NECK: JVD not raised. Mass not palpable. RESPIRATORY: Effort increased. LUNGS: Decreased breath sounds. Basal crackles. Prolonged expiration. CARDIOVASCULAR: First and second sounds normal. No edema. ABDOMEN: Soft, nontender. Liver and spleen not palpable. PSYCHIATRY: Tired but able to answer questions appropriately. INVESTIGATIONS: Accu-Cheks are noted. ASSESSMENT: 1. Bilateral multilobar pneumonia; suspect Gram-negative organism causing sepsis on admission, slow to respond. 2. Acute severe chronic obstructive pulmonary disease exacerbation in an ex-smoker, slow to respond. 3. Chronic pain syndrome. 4. Gastroesophageal reflux disease. 5. Essential hypertension. 6. Primary osteoarthritis in multiple joints, bilateral. 7. Raynaud disease. 8. Moderate protein-calorie malnutrition. PLAN: Continue with IV Levaquin. Cultures are pending. Care was discussed with the patient. The patient was seen by Pulmonary. MMODL / IJN: [id number] /
[2017-09-24 17:26] LABS: Glucose,Whole Blood 157 mg/dL (75-99)
[2017-09-24] MEDS ORDERED: LEVOFLOXACIN 750MG-D5W PMX 750 MG in DEXTROSE/WATER 1 150ML.BAG IVPB SCH (18:00)
[2017-09-24 21:15] LABS: Glucose,Whole Blood 126 mg/dL (75-99)
[2017-09-24] MEDS: SODIUM CHLORIDE 0.9% 1,000 ML IV SCH (23:07)
[2017-09-24] MEDS: SENNOSIDES-DOCUSATE SODIUM 1 EACH TAB PO SCH (23:26)
[2017-09-24] MEDS: MELATONIN 5 MG TABLET PO SCH (23:26)
[2017-09-24] MEDS: amLODIPine 2.5 MG TAB PO SCH (23:26)
[2017-09-24] MEDS: ZOLPIDEM 10 MG TAB PO SCH (23:38)
[2017-09-24] MEDS: ALPRAZolam 1 MG TAB PO SCH (23:39)
[2017-09-24] MEDS: BUTA/APAP/CAF/COD 50-325-40-30 CAP PO PRN (23:39)
[2017-09-25] MEDS: methylPREDNISolone SOD SUCCI 40 MG/ML 1 ML VIAL IV SCH ×4 (02:17→23:21)
[2017-09-25] MEDS: IPRATROPIUM-ALBUTEROL 3 ML NEB INHALATION SCH ×7 (04:10→23:29)
[2017-09-25 06:24] LABS: Glucose,Whole Blood 137 mg/dL (75-99)
[2017-09-25] MEDS: PANTOPRAZOLE 40 MG TABLET PO SCH ×2 (06:42→16:40)
[2017-09-25] MEDS: BACLOFEN 10 MG TAB PO SCH ×3 (06:42→22:59)
[2017-09-25] MEDS: INSULIN ASPART 100 UNIT/ML 1 ML 10 ML VIAL SQ SCH ×4 (06:42→22:55)
[2017-09-25] MEDS: LEVOTHYROXINE 50 MCG TAB PO SCH (06:42)
[2017-09-25] MEDS: ALPRAZolam 0.5 MG TAB PO SCH ×2 (06:42→16:45)
[2017-09-25] MEDS: ONDANSETRON 4 MG/2 ML VIAL IVP PRN ×2 (06:46→16:41)
--- NOTE | 2017-09-25 07:26 | XR ---
EXAMINATION TYPE: XR chest 1V portable DATE OF EXAM: 09/25/2017 Comparison: 09/24/2019 Clinical History: 56 year-old female history of pneumonia Findings: Heart upper limits of normal in size. Atherosclerotic arch calcifications. Diffuse interstitial and s ome patchy confluence opacities in the lower lungs. No significant pleural effusion seen. Impression: Interstitial and some patchy airspace disease bilateral lungs. Aeration is stable to minimal worsened . Correlate for possible etiologies including interstitial edema, interstitial pneumonitis, and infec tion including atypical pneumonias.
[2017-09-25] MEDS: cycloSPORINE 0.05% OPHTH 0.4 ML DROPERETTE BOTH EYES SCH ×2 (08:40→23:03)
[2017-09-25] MEDS: FUROSEMIDE 10 MG/ML 4 ML VIAL IV SCH ×3 (08:40→23:11)
[2017-09-25] MEDS: PYRIDOXINE 50 MG TAB PO SCH (08:41)
[2017-09-25] MEDS: CALCIUM CARB-MAG CARB-FOLIC 1 EACH TAB PO SCH ×2 (08:42→23:00)
[2017-09-25] MEDS: HEPARIN SODIUM,PORCINE 5,000 UNIT/ML 1 ML VIAL SQ SCH ×2 (08:42→23:03)
[2017-09-25] MEDS: guaiFENesin 600 MG TABLET.ER PO SCH ×2 (08:42→23:03)
[2017-09-25] MEDS: CHOLECALCIFEROL 1,000 UNIT TAB PO SCH (08:43)
[2017-09-25] MEDS: FERROUS SULFATE 325 MG TAB PO SCH (08:43)
[2017-09-25] MEDS: GABAPENTIN 100 MG CAP PO SCH ×3 (08:43→23:01)
[2017-09-25] MEDS: valACYclovir HCL 1,000 MG TABLET PO SCH (08:43)
[2017-09-25] MEDS: FOLIC ACID 1 MG TAB PO SCH (08:44)
[2017-09-25] MEDS: amLODIPine 5 MG TAB PO SCH (08:44)
[2017-09-25] MEDS: HYDROCHLOROTHIAZIDE 25 MG TAB PO SCH (08:44)
[2017-09-25 11:44] LABS: Glucose,Whole Blood 129 mg/dL (75-99)
[2017-09-25] MEDS: NEBIVOLOL 5 MG TAB PO SCH ×2 (14:07→23:03)
--- NOTE | 2017-09-25 14:19 | P.PN ---
Subjective Progress Note Date: 09/25/17 Principal diagnosis: Acute hypoxic respiratory failure secondary to community-acquired pneumonia. This is a very pleasant 56-year-old female patient who follows with Dr. Landa as her primary care physician. She has a history of fibromyalgia, hypertension , recurrent sinusitis, chronic constipation, ventilatory dependent respiratory failure secondary to bilateral pneumonia and influenza A infection in July 2014, TIA. She presented here yesterday with complaints of increasing shortness of breath, cough and congestion. Productive sputum of yellowish reynaga. Fever chills and night sweats. She was treated in the outpatient setting with Levaquin. No significant improvement. She states she had been up visiting her father in [place] who has many exotic birds. She states the cages are not that clean and she usually does have some upper respiratory issues after visiting him. He also is a heavy smoker. She herself is a previous smoker. Her chest x-ray reveals some patchy infiltrates throughout the lungs right greater than left. Possible pneumonia versus atypical infection and interstitial pneumonitis. White count 8.6. Hemoglobin 13.1. ProBNP 5020. Influenza screen is negative. She is seen today in consultation on the selective care unit. She is awake and alert in no acute distress. She does have a loose nonproductive cough currently. Maintaining O2 saturations in the 90s on 4 L/m per nasal cannula. She is afebrile. Hemodynamically stable. His been initiated on IV Levaquin. The patient has multiple ALLERGIES to most antibiotics. She is also on IV Solu-Medrol, IV Lasix and bronchodilators. Patient was reevaluated today on 09/25/2017, seems to be doing much better, breathing easier, less cough, less wheezing, less shortness of breath. No fever in the last 24 hours, her vital signs are stable. O2 saturation is 97% on 3 L nasal cannula. No labs were done today except for blood sugar 129. Chest x-ray from today was reviewed, and contrary to what the radiologist feels , I feel the chest x-ray is improving, not to mention the patient is also clinically improve. Objective - Vital Signs Vital signs: Vital Signs Temp 96.5 F L 09/25/17 11:44 Pulse 80 09/25/17 13:19 Resp 18 09/25/17 11:52 BP 128/63 09/25/17 11:44 Pulse Ox 97 09/25/17 11:44 Intake & Output 09/24/17 09/25/17 09/25/17 18:59 06:59 18:59 Intake Total 630 560 240 Output Total 1000 1150 650 Balance -370 -590 -410 Weight 46.3 kg 45.4 kg Intake: Intake, IV Titration 80 Amount Sodium Chloride 0.9% 1, 80 000 ml @ 20 mls/hr IV . Q24H WILBER Rx#:[id number] Oral 630 480 240 Output: Urine 1000 1150 650 Other: Voiding Method Toilet Toilet Toilet # Voids 1 - Exam GENERAL EXAM: Frail, cachectic, comfortable in no apparent distress. HEAD: Normocephalic. EYES: Normal reaction of pupils, equal size. NOSE: Clear with pink turbinates. THROAT: No erythema or exudates. NECK: No masses, no JVD. CHEST: No chest wall deformity. LUNGS: Equal air entry less wheezing and rhonchi noted today on forced expiratory maneuver compared to yesterday. CVS: S1 and S2 normal with no audible murmur, regular rhythm. ABDOMEN: No hepatosplenomegaly, normal bowel sounds, no guarding or rigidity. SPINE: No scoliosis or deformity SKIN: No rashes CENTRAL NERVOUS SYSTEM: No focal deficits, tone is normal in all 4 extremities. EXTREMITIES: There is no peripheral edema. No clubbing, no cyanosis. Peripheral pulses are intact. - Labs CBC & Chem 7: 09/23/17 15:49 09/23/17 15:49 Labs: Abnormal Lab Results - Last 24 Hours (Table) 09/24/17 09/24/17 09/25/17 Range/Units 17:09 20:55 05:55 POC Glucose (mg/dL) 157 H 126 H 137 H (75-99) mg/dL 09/25/17 Range/Units 11:34 POC Glucose (mg/dL) 129 H (75-99) mg/dL Assessment and Plan Assessment: #1 Acute hypoxic respiratory failure secondary to community-acquired pneumonia. Some concern regarding atypical pneumonia with pneumonitis based on her exposure to exotic birds and bird droppings. #2 Previous history of ventilatory dependent respiratory failure secondary to bilateral multilobar pneumonia and influenza A infection in July 2014. #3 History of chronic tobacco dependence. #4 Fibromyalgia. #5 Hypertension. #6 Anxiety. #7 Chronic pain syndrome. #8 Chronic sinusitis with multiple sinus surgeries. Recommendation: Continue present treatment plan including antibiotics steroids bronchodilators, consider discharge planning in the next 48 hours. Time with Patient: Less than 30
[2017-09-25] MEDS: SODIUM CHLORIDE 0.9% 1,000 ML IV SCH (16:40)
[2017-09-25] MEDS: LEVOFLOXACIN 750 MG TAB PO SCH (16:41)
[2017-09-25] MEDS: oxyCODONE-APAP 10-325MG 1 EACH TAB PO PRN (16:41)
[2017-09-25 16:42] LABS: Glucose,Whole Blood 125 mg/dL (75-99)
[2017-09-25] MEDS ORDERED: FLUCONAZOLE 100 MG TAB PO ONE (19:30)
[2017-09-25 21:45] LABS: Glucose,Whole Blood 155 mg/dL (75-99)
--- NOTE | 2017-09-25 22:08 | PN ---
PROGRESS NOTE DATE OF SERVICE: September 25, 2017. PRESENTING COMPLAINT: Cough, short of breath. INTERVAL HISTORY: Patient admitted with multilobar pneumonia, COPD exacerbation. This morning patient still has got a cough, sputum production has gone down. Congested in her throat. She feels she has thrush coming on. Did tolerate some diet, though still remains rather tired. Short of breath. REVIEW OF SYSTEMS: Done for constitutional, cardiovascular, GI, pulmonary, relevant findings as above. CURRENT MEDICATIONS: Reviewed that include IV Solu-Medrol, p.o. Levaquin. PHYSICAL EXAMINATION: Temperature 96.5, pulse 77, respiratory 18, blood pressure 120/63, pulse ox 97% on 3 L. General appearance: Sitting up, tired-appearing, somewhat lethargic but answering all questions. Eyes: Pupils equal. Conjunctivae normal. HEENT: External appearance of nose and ears normal. Oral cavity shows widespread white spots. Neck JVD not raised. Mass not palpable. Respiratory effort increased. Lungs decreased breath sounds. Crackles. Prolonged expiration. Cardiovascular: 1st and 2nd sounds normal. No edema. ABDOMEN: Soft, nontender. Liver and spleen not palpable. Psychiatry: Tired but answering questions appropriately. INVESTIGATIONS: Accu-Cheks are noted. ASSESSMENT: 1. Bilateral multilobar pneumonia suspect gram-negative organism causing sepsis on presentation, slow to respond. 2. Acute severe chronic obstructive pulmonary disease exacerbation in an ex-smoker . 3. Oropharyngeal candidiasis. 4. Chronic pain syndrome. 5. Gastroesophageal reflux disease. 6. Essential hypertension. 7. Primary osteoarthritis multiple joints. 8. Raynaud disease. 9. Moderate protein calorie malnutrition from decreased oral intake. PLAN: Continue with the current antibiotics. We will add Diflucan 100 mg starting tomorrow. Overall prognosis is guarded. MMODL / IJN: [id number] /
[2017-09-25] MEDS: NYSTATIN 100,000 UNIT/ML SUSP 500,000 UNIT/5 ML CUP PO SCH (22:58)
[2017-09-25] MEDS: MELATONIN 5 MG TABLET PO SCH (23:00)
[2017-09-25] MEDS: ALPRAZolam 1 MG TAB PO SCH (23:01)
[2017-09-25] MEDS: amLODIPine 2.5 MG TAB PO SCH (23:01)
[2017-09-25] MEDS: SENNOSIDES-DOCUSATE SODIUM 1 EACH TAB PO SCH (23:02)
[2017-09-25] MEDS: ZOLPIDEM 10 MG TAB PO SCH (23:02)
[2017-09-26] MEDS: IPRATROPIUM-ALBUTEROL 3 ML NEB INHALATION SCH ×5 (03:41→20:29)
[2017-09-26 06:04] LABS: Glucose,Whole Blood 116 mg/dL (75-99)
[2017-09-26] MEDS: LEVOTHYROXINE 50 MCG TAB PO SCH (06:04)
[2017-09-26] MEDS: ALPRAZolam 0.5 MG TAB PO SCH ×2 (06:05→16:48)
[2017-09-26] MEDS: INSULIN ASPART 100 UNIT/ML 1 ML 10 ML VIAL SQ SCH ×4 (06:05→22:16)
[2017-09-26] MEDS: BACLOFEN 10 MG TAB PO SCH ×3 (06:10→20:18)
[2017-09-26] MEDS: PANTOPRAZOLE 40 MG TABLET PO SCH ×2 (06:10→16:44)
[2017-09-26] MEDS: oxyCODONE-APAP 10-325MG 1 EACH TAB PO PRN ×3 (06:11→23:11)
[2017-09-26] MEDS: ONDANSETRON 4 MG/2 ML VIAL IVP PRN ×2 (06:18→16:48)
[2017-09-26 06:28] LABS: Basophils % (A) 0 %; Eosinophils % (A) 0 %; HCT 43.2 % (34.0-46.0); HGB 14.8 gm/dL (11.4-16.0); Lymphocytes # (A) 1.1 k/uL (1.0-4.8); Lymphocytes % (A) 12 %; MCH 36.7 pg (25.0-35.0); MCHC 34.2 g/dL (31.0-37.0); MCV 107.5 fL (80.0-100.0); Macrocytosis Moderate; Mean Platelet Volume 7.5; Monocytes # (A) 0.6 k/uL (0-1.0); Monocytes % (A) 7 %; Neutrophils # (A) 6.9 k/uL (1.3-7.7); Neutrophils % (A) 79 %; Platelet Count 342 k/uL (150-450); RBC 4.02 m/uL (3.80-5.40); WBC 8.7 k/uL (3.8-10.6)
[2017-09-26 06:52] LABS: Albumin 3.2 g/dL (3.5-5.0); Calcium 9.3 mg/dL (8.4-10.2); Potassium 3.2 mmol/L (3.5-5.1); Total Bilirubin 0.3 mg/dL (0.2-1.3); Total Protein 5.9 g/dL (6.3-8.2)
[2017-09-26] MEDS ORDERED: Potassium Replacement Protocol 1 EACH MISC MISCELLANE PRN (07:34)
[2017-09-26] MEDS: FUROSEMIDE 10 MG/ML 4 ML VIAL IV SCH ×3 (08:26→20:20)
[2017-09-26] MEDS: methylPREDNISolone SOD SUCCI 40 MG/ML 1 ML VIAL IV SCH ×3 (08:26→20:19)
[2017-09-26] MEDS: POTASSIUM CHLORIDE ER 20 MEQ TAB.ER PO SCH ×2 (08:27→10:08)
[2017-09-26] MEDS: valACYclovir HCL 1,000 MG TABLET PO SCH (08:28)
[2017-09-26] MEDS: amLODIPine 5 MG TAB PO SCH (08:28)
[2017-09-26] MEDS: CALCIUM CARB-MAG CARB-FOLIC 1 EACH TAB PO SCH ×2 (08:29→20:19)
[2017-09-26] MEDS: FERROUS SULFATE 325 MG TAB PO SCH (08:29)
[2017-09-26] MEDS: cycloSPORINE 0.05% OPHTH 0.4 ML DROPERETTE BOTH EYES SCH ×2 (08:29→20:20)
[2017-09-26] MEDS: HYDROCHLOROTHIAZIDE 25 MG TAB PO SCH (08:30)
[2017-09-26] MEDS: HEPARIN SODIUM,PORCINE 5,000 UNIT/ML 1 ML VIAL SQ SCH ×2 (08:30→20:18)
[2017-09-26] MEDS: PYRIDOXINE 50 MG TAB PO SCH (08:30)
[2017-09-26] MEDS: GABAPENTIN 100 MG CAP PO SCH ×3 (08:30→20:21)
[2017-09-26] MEDS: NYSTATIN 100,000 UNIT/ML SUSP 500,000 UNIT/5 ML CUP PO SCH ×4 (08:30→20:18)
[2017-09-26] MEDS: guaiFENesin 600 MG TABLET.ER PO SCH ×2 (08:30→20:19)
[2017-09-26] MEDS: ONDANSETRON 4 MG TAB PO PRN (08:39)
[2017-09-26] MEDS ORDERED: FLUCONAZOLE 100 MG TAB PO SCH (09:00)
[2017-09-26 11:41] LABS: Glucose,Whole Blood 100 mg/dL (75-99)
--- NOTE | 2017-09-26 12:05 | P.PN ---
Subjective Progress Note Date: 09/26/17 Principal diagnosis: Acute hypoxic respiratory failure secondary to community-acquired pneumonia. This is a very pleasant 56-year-old female patient who follows with Dr. Landa as her primary care physician. She has a history of fibromyalgia, hypertension , recurrent sinusitis, chronic constipation, ventilatory dependent respiratory failure secondary to bilateral pneumonia and influenza A infection in July 2014, TIA. She presented here yesterday with complaints of increasing shortness of breath, cough and congestion. Productive sputum of yellowish reynaga. Fever chills and night sweats. She was treated in the outpatient setting with Levaquin. No significant improvement. She states she had been up visiting her father in [place] who has many exotic birds. She states the cages are not that clean and she usually does have some upper respiratory issues after visiting him. He also is a heavy smoker. She herself is a previous smoker. Her chest x-ray reveals some patchy infiltrates throughout the lungs right greater than left. Possible pneumonia versus atypical infection and interstitial pneumonitis. White count 8.6. Hemoglobin 13.1. ProBNP 5020. Influenza screen is negative. She is seen today in consultation on the selective care unit. She is awake and alert in no acute distress. She does have a loose nonproductive cough currently. Maintaining O2 saturations in the 90s on 4 L/m per nasal cannula. She is afebrile. Hemodynamically stable. His been initiated on IV Levaquin. The patient has multiple ALLERGIES to most antibiotics. She is also on IV Solu-Medrol, IV Lasix and bronchodilators. Patient was reevaluated today on 09/25/2017, seems to be doing much better, breathing easier, less cough, less wheezing, less shortness of breath. No fever in the last 24 hours, her vital signs are stable. O2 saturation is 97% on 3 L nasal cannula. No labs were done today except for blood sugar 129. Chest x-ray from today was reviewed, and contrary to what the radiologist feels , I feel the chest x-ray is improving, not to mention the patient is also clinically improve. Reevaluated today on 09/26/2017, patient is feeling better, breathing easier, less cough and less wheezing less shortness of breath. Patient is tolerating treatment well, and at this point I feel the patient could be considered for discharge planning in the next 24 hours. Objective - Vital Signs Vital signs: Vital Signs Temp 96.3 F L 09/26/17 08:00 Pulse 61 09/26/17 08:00 Resp 16 09/26/17 04:00 BP 121/58 09/26/17 08:00 Pulse Ox 94 L 09/26/17 08:00 Intake & Output 09/25/17 09/26/17 09/26/17 18:59 06:59 18:59 Intake Total 720 140 60 Output Total 650 1400 Balance 70 -1260 60 Weight 45.2 kg 45.2 kg Intake: Intake, IV Titration 140 Amount Sodium Chloride 0.9% 1, 140 000 ml @ 20 mls/hr IV . Q24H WILBER Rx#:[id number] Oral 720 60 Output: Urine 650 1400 Other: Voiding Method Toilet Toilet # Voids 2 4 - Exam GENERAL EXAM: Frail, cachectic, comfortable in no apparent distress. HEAD: Normocephalic. EYES: Normal reaction of pupils, equal size. NOSE: Clear with pink turbinates. THROAT: No erythema or exudates. NECK: No masses, no JVD. CHEST: No chest wall deformity. LUNGS: Equal air entry, wheezing on forced expiratory maneuver only. CVS: S1 and S2 normal with no audible murmur, regular rhythm. ABDOMEN: No hepatosplenomegaly, normal bowel sounds, no guarding or rigidity. SPINE: No scoliosis or deformity SKIN: No rashes CENTRAL NERVOUS SYSTEM: No focal deficits, tone is normal in all 4 extremities. EXTREMITIES: There is no peripheral edema. No clubbing, no cyanosis. Peripheral pulses are intact. - Labs CBC & Chem 7: 09/26/17 06:06 09/26/17 06:06 Labs: Abnormal Lab Results - Last 24 Hours (Table) 09/25/17 09/25/17 09/26/17 Range/Units 16:36 21:25 06:02 MCV (80.0-100.0) fL MCH (25.0-35.0) pg Potassium (3.5-5.1) mmol/L Chloride (98-107) mmol/L Carbon Dioxide (22-30) mmol/L BUN (7-17) mg/dL Glucose (74-99) mg/dL POC Glucose (mg/dL) 125 H 155 H 116 H (75-99) mg/dL Alkaline Phosphatase (38-126) U/L Total Protein (6.3-8.2) g/dL Albumin (3.5-5.0) g/dL 09/26/17 09/26/17 09/26/17 Range/Units 06:06 06:06 11:34 MCV 107.5 H (80.0-100.0) fL MCH 36.7 H (25.0-35.0) pg Potassium 3.2 L (3.5-5.1) mmol/L Chloride 85 L (98-107) mmol/L Carbon Dioxide 45 H* (22-30) mmol/L BUN 30 H (7-17) mg/dL Glucose 110 H (74-99) mg/dL POC Glucose (mg/dL) 100 H (75-99) mg/dL Alkaline Phosphatase 196 H (38-126) U/L Total Protein 5.9 L (6.3-8.2) g/dL Albumin 3.2 L (3.5-5.0) g/dL Microbiology - Last 24 Hours (Table) 09/26/17 04:00 Sputum Culture - Preliminary Sputum Assessment and Plan Assessment: #1 Acute hypoxic respiratory failure secondary to community-acquired pneumonia. Some concern regarding atypical pneumonia with pneumonitis based on her exposure to exotic birds and bird droppings. However considering the patient is clinically improved, I will recommend that we continue the same medications, continue bronchodilators, steroids, consider discharge planning today or at the latest in the next 24 hours. #2 Previous history of ventilatory dependent respiratory failure secondary to bilateral multilobar pneumonia and influenza A infection in July 2014. #3 History of chronic tobacco dependence. #4 Fibromyalgia. #5 Hypertension. #6 Anxiety. #7 Chronic pain syndrome. #8 Chronic sinusitis with multiple sinus surgeries. Recommendation: Continue present treatment plan including antibiotics steroids bronchodilators, consider discharge planning later today, or in a.m., follow- up on outpatient basis. Time with Patient: Less than 30
[2017-09-26] MEDS: FOLIC ACID 1 MG TAB PO SCH (14:10)
[2017-09-26] MEDS: CHOLECALCIFEROL 1,000 UNIT TAB PO SCH (14:10)
[2017-09-26 16:36] LABS: Glucose,Whole Blood 96 mg/dL (75-99)
[2017-09-26] MEDS: LEVOFLOXACIN 750 MG TAB PO SCH (16:44)
[2017-09-26] MEDS: SODIUM CHLORIDE 0.9% 1,000 ML IV SCH (20:18)
[2017-09-26] MEDS: NEBIVOLOL 5 MG TAB PO SCH (20:19)
[2017-09-26] MEDS: amLODIPine 2.5 MG TAB PO SCH (20:19)
[2017-09-26] MEDS: SENNOSIDES-DOCUSATE SODIUM 1 EACH TAB PO SCH (20:19)
[2017-09-26] MEDS: MELATONIN 5 MG TABLET PO SCH (20:20)
[2017-09-26] MEDS: Acetaminophen-Codeine 300-30mg TAB PO PRN (20:24)
[2017-09-26] MEDS: ZOLPIDEM 10 MG TAB PO SCH (20:25)
[2017-09-26] MEDS: ALPRAZolam 1 MG TAB PO SCH (20:27)
[2017-09-26 21:19] LABS: Glucose,Whole Blood 117 mg/dL (75-99)
[2017-09-26] MEDS ORDERED: FLUCONAZOLE 100 MG TAB PO ONE (22:58)
--- NOTE | 2017-09-26 23:39 | PN ---
PROGRESS NOTE DATE OF SERVICE: 09/26/2017. PRESENTING COMPLAINT: Cough, short of breath. INTERVAL HISTORY: Patient with multilobar pneumonia, COPD exacerbation. The patient had not taken a Diflucan that was ordered. After I talked to her this morning, she has agreed to take it for oropharyngeal thrush. Tired, not eating much. Still got some cough. REVIEW OF SYSTEMS: Done for constitutional, cardiovascular, GI, pulmonary; relevant findings as above. CURRENT MEDICATIONS: Reviewed, include: 1. IV Solu-Medrol. 2. IV Lasix. 3. Bronchodilators. 4. Levaquin. EXAMINATION: Temperature 96.3, pulse 61, respiration 18, blood pressure 120/58, pulse ox 94% on 3L. GENERAL APPEARANCE: Sitting up on bed, tired-appearing. EYES: Pupils equal. Conjunctivae normal. HEENT: External nose and ears normal. Oral cavity: White patches, including the pharynx. NECK: JVD not raised. Mass not palpable. RESPIRATORY: Effort increased. LUNGS: Decreased breath sounds with bilateral crackles, both inspiratory and expiratory. CARDIOVASCULAR: First and second sounds normal. No edema. ABDOMEN: Soft, nontender. Liver and spleen not palpable. PSYCHIATRY: Tired-appearing, but does answer questions appropriately. INVESTIGATIONS: White count 8.7, hemoglobin 14.8. Potassium 3.2, bicarb is 45, BUN 30, creatinine 0.98. Accu-Cheks noted. Chest x-ray from yesterday showing bilateral interstitial pattern. ASSESSMENT: 1. Bilateral multilobar pneumonia, suspect gram-negative organism causing sepsis, present on admission with sputum cultures coming back now negative. The patient still has significant crackles on both sides. I am wondering if patient may benefit actually from a bronchoscopy with lavage. 2. Acute chronic obstructive pulmonary disease exacerbation in an ex-smoker. 3. Oropharyngeal candidiasis. 4. Chronic pain syndrome. 5. Gastroesophageal reflux disease. 6. Essential hypertension. 7. Primary osteoarthritis in multiple joints. 8. Raynaud disease. 9. Moderate protein-calorie malnutrition, decreased oral intake. 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 PLAN: Will repeat a BNP in the morning, do a 2-D echocardiogram. The patient has agreed to take the Diflucan. Will discuss with Dr. Shook. Meantime, will decrease the patient's Solu-Medrol and discontinue the Lasix. ZURIL / IJN: [id number] /
[2017-09-27] MEDS: IPRATROPIUM-ALBUTEROL 3 ML NEB INHALATION SCH ×6 (00:30→20:31)
[2017-09-27] MEDS: oxyCODONE-APAP 10-325MG 1 EACH TAB PO PRN ×4 (05:53→23:51)
[2017-09-27] MEDS: LEVOTHYROXINE 50 MCG TAB PO SCH (05:54)
[2017-09-27] MEDS: PANTOPRAZOLE 40 MG TABLET PO SCH ×2 (05:54→17:59)
[2017-09-27] MEDS: BACLOFEN 10 MG TAB PO SCH ×3 (05:54→23:48)
[2017-09-27] MEDS: INSULIN ASPART 100 UNIT/ML 1 ML 10 ML VIAL SQ SCH ×4 (07:04→21:37)
[2017-09-27] MEDS: guaiFENesin 600 MG TABLET.ER PO SCH ×2 (08:59→23:49)
[2017-09-27] MEDS: ALPRAZolam 0.5 MG TAB PO SCH ×2 (08:59→17:59)
[2017-09-27] MEDS: cycloSPORINE 0.05% OPHTH 0.4 ML DROPERETTE BOTH EYES SCH ×2 (09:00→23:49)
[2017-09-27] MEDS: NYSTATIN 100,000 UNIT/ML SUSP 500,000 UNIT/5 ML CUP PO SCH ×4 (09:00→23:50)
[2017-09-27] MEDS: CALCIUM CARB-MAG CARB-FOLIC 1 EACH TAB PO SCH ×2 (09:00→23:49)
[2017-09-27] MEDS: FERROUS SULFATE 325 MG TAB PO SCH (09:00)
[2017-09-27] MEDS: valACYclovir HCL 1,000 MG TABLET PO SCH (09:01)
[2017-09-27] MEDS: HEPARIN SODIUM,PORCINE 5,000 UNIT/ML 1 ML VIAL SQ SCH ×2 (09:01→23:49)
[2017-09-27] MEDS: FLUCONAZOLE 100 MG TAB PO SCH (09:01)
[2017-09-27] MEDS: amLODIPine 5 MG TAB PO SCH (09:01)
[2017-09-27] MEDS: GABAPENTIN 100 MG CAP PO SCH ×3 (09:01→23:50)
[2017-09-27] MEDS: PYRIDOXINE 50 MG TAB PO SCH (09:02)
[2017-09-27] MEDS: predniSONE 20 MG TAB PO SCH (09:02)
--- NOTE | 2017-09-27 10:33 | P.CRDCN ---
History of Present Illness Consult date: 09/27/17 Requesting physician: Keon Cooper Consult reason: chest pain Chief complaint: Cough, shortness of breath, chest discomfort History of present illness: This is a 56-year-old female who has history of hypertension, fibromyalgia, prior TIA, nicotine dependence, asthma, multiple cervical surgeries, she presented to the hospital with symptoms of worsening shortness of breath with associated productive cough of yellow sputum, patient was also having significant fever chills and night sweats at home prior to coming in. She did have one episode of chest discomfort in the midsternal area, since then has had no discomfort. EKG on arrival here shows a normal sinus rhythm with occasional PVC, mild ST depression in leads V5 and V6. Chest x-ray reveals patchy infiltrates through the lungs, right greater than the left. Correlate for pneumonia including atypical infectious an interstitial pneumonitis. Blood pressure 128/60, heart rate in the 70s, temperature 97.4, she is 96% on 1 L of oxygen. White blood cell count 8.7, hemoglobin 14.8, platelet count 342. Sodium 139, potassium 3.2, BUN 30, creatinine 0.9. Troponins have been negative 3. BNP level on admission 5020, 548 this morning. Influenza A and B were negative. Patient has been initiated on antibiotics by pulmonary she does state this morning that she is feeling overall significantly better. Denies any chest discomfort. Past Medical History Past Medical History: Asthma, Chest Pain / Angina, Fibromyalgia, GERD/Reflux, Hypertension, Osteoarthritis (OA), Pneumonia, Renal Disease Additional Past Medical History / Comment(s): degenerative disc disease; ARTHRITIS; MIGRAINES:inner ear equilbrium issue, some renal stenosis, Reynauds disease History of Any Multi-Drug Resistant Organisms: None Reported Past Surgical History: Appendectomy, Back Surgery, Cholecystectomy, Hysterectomy , Orthopedic Surgery, Tubal Ligation Additional Past Surgical History / Comment(s): 3 cervical fusions. ovarian cystMENISCUS SX; SHOULDER SX; CARPAL TUNNEL SX Past Anesthesia/Blood Transfusion Reactions: Motion Sickness Past Psychological History: No Psychological Hx Reported Additional Psychological History / Comment(s): pt. is and lives with her and daughter, pt. is medically disabled, pt. states she does not use any walking aides at home, states her helps care for her Smoking Status: Former smoker Past Alcohol Use History: Occasional Past Drug Use History: None Reported - Past Family History Father Family Medical History: Cancer Mother Family Medical History: Deep Vein Thrombosis (DVT) Medications and Allergies Home Medications Medication Instructions Recorded Confirmed Type Butalbit/Acetamin/Caff/Codeine 1 cap PO TID PRN 11/27/13 09/23/17 History [Fioricet W/Codeine [id number] Cap] Cholecalciferol [Vitamin D3] 2,000 unit PO DAILY 11/27/13 09/23/17 History Folic Acid 1 mg PO DAILY 11/27/13 09/23/17 History Ondansetron HCl [Zofran] 8 mg PO TID PRN 11/27/13 09/23/17 History Pantoprazole Sodium [Protonix] 40 mg PO BID 11/27/13 09/23/17 History Pyridoxine [Vitamin B-6] 100 mg PO DAILY 11/27/13 09/23/17 History Sennosides-Docusate Sodium 2 tab PO HS 11/27/13 09/23/17 History [Senokot-S] Zolpidem [Ambien] 10 mg PO HS 11/27/13 09/23/17 History valACYclovir HCL [Valtrex] 1,000 mg PO DAILY 11/27/13 09/23/17 History Baclofen [Lioresal] 10 mg PO BID 05/02/14 09/23/17 History Baclofen 20 mg PO HS 07/21/14 09/23/17 History ALPRAZolam [Xanax] 0.5 mg PO BID 09/23/17 09/23/17 History ALPRAZolam [Xanax] 1 mg PO HS 09/23/17 09/23/17 History Calcium/Magnesium 1 cap PO BID 09/23/17 09/23/17 History Cyanocobalamin [Vitamin B-12 1,000 mcg SQ Q14D 09/23/17 09/23/17 History Injection] Ferrous Sulfate [Feosol] 325 mg PO DAILY 09/23/17 09/23/17 History Gabapentin [Neurontin] 100 mg PO TID 09/23/17 09/23/17 History Hydrochlorothiazide [Hydrodiuril] 25 mg PO DAILY 09/23/17 09/23/17 History Ipratropium-Albuterol Nebulize 3 ml INHALATION RT-QID PRN 09/23/17 09/23/17 History [Duoneb 0.5 mg-3 mg/3 ml Soln] Levofloxacin [Levaquin] 500 mg PO DAILY 09/23/17 09/23/17 History Levothyroxine Sodium [Synthroid] 50 mcg PO DAILY 09/23/17 09/23/17 History Melatonin 10 mg PO HS 09/23/17 09/23/17 History Mometasone/Formoterol [Dulera 200 2 puff INHALATION RT-BID 09/23/17 09/23/17 History Mcg/5 Mcg Inhaler] Nebivolol HCl [Bystolic] 20 mg PO DAILY 09/23/17 09/23/17 History amLODIPine [Norvasc] 2.5 mg PO HS 09/23/17 09/23/17 History amLODIPine [Norvasc] 5 mg PO DAILY 09/23/17 09/23/17 History cycloSPORINE [Restasis] 1 drop BOTH EYES BID 09/23/17 09/23/17 History oxyCODONE-APAP 10-325MG [Percocet 1 tab PO QID PRN 09/23/17 09/23/17 History 10-325 mg] Allergies Allergy/AdvReac Type Severity Reaction Status Date / Time enoxaparin sodium Allergy Severe "welts" Verified 09/23/17 16:50 [From Lovenox] morphine sulfate Allergy Severe uncontroled Verified 09/23/17 16:50 [From Shania] muscles pregabalin [From Lyrica] Allergy Severe Swelling,rash Verified 09/23/17 16:50 all over body amoxicillin [From Augmentin] Allergy Unknown Verified 09/23/17 16:50 atomoxetine HCl Allergy Rash/Hives Verified 09/23/17 16:50 [From Strattera] ceftriaxone [From Rocephin] Allergy Unknown Verified 09/23/17 16:50 cefuroxime [From Ceftin] Allergy Unknown Verified 09/23/17 16:50 clarithromycin [From Biaxin] Allergy Rash/Hives Verified 09/23/17 16:50 clavulanic acid Allergy Unknown Verified 09/23/17 16:50 [From Augmentin] duloxetine HCl Allergy Rash/Hives Verified 09/23/17 16:50 [From Cymbalta] fentanyl Allergy Unknown Verified 09/23/17 16:50 metoprolol Allergy Unknown Verified 09/23/17 16:50 NSAIDS (Non-Steroidal Allergy bleeding Verified 09/23/17 16:50 Anti-Inflamma ulcer valsartan [From Diovan] Allergy Unknown Verified 09/23/17 16:50 warfarin sodium Allergy Rash/Hives Verified 09/23/17 16:50 [From Coumadin] axetil Allergy Rash/Hives Uncoded 09/23/17 15:11 Physical Exam Vitals: Vital Signs Temp Pulse Pulse Resp BP Pulse Ox 09/27/17 08:23 80 09/27/17 08:12 76 92 L 09/27/17 08:00 97.4 F L 71 128/60 96 09/27/17 03:00 97.4 F L 68 16 113/78 95 09/27/17 00:47 84 09/27/17 00:31 84 09/26/17 23:58 97.4 F L 68 18 112/60 95 09/26/17 20:40 88 09/26/17 20:29 88 09/26/17 20:00 97.5 F L 78 18 115/69 96 09/26/17 16:30 92 09/26/17 16:18 88 09/26/17 15:58 98.3 F 74 120/68 95 09/26/17 12:00 73 117/57 96 Intake and Output 09/26/17 09/27/17 09/27/17 22:59 06:59 14:59 Intake Total 240 Output Total 1600 1600 Balance -1600 -1360 Intake: Oral 240 Output: Urine 1600 1600 Other: Voiding Method Toilet Toilet # Voids 4 3 # Bowel Movements 0 0 Weight 45.2 kg 43 kg PHYSICAL EXAMINATION: HEENT: Head is atraumatic, normocephalic. Pupils equal, round. Neck is supple. There is no elevated jugular venous pressure. HEART EXAMINATION: Heart S1, S2 normal. No murmur or gallop heard. CHEST EXAMINATION: Lungs reveal scattered coarse rhonchi throughout. ABDOMEN: Soft, nontender. Bowel sounds are heard. No organomegaly noted. EXTREMITIES: 2+ peripheral pulses with no evidence of peripheral edema and no calf tenderness noted. NEUROLOGIC patient is awake, alert and oriented -3. . Results 09/26/17 06:06 09/26/17 06:06 Current Medications Generic Name Dose Route Start Last Admin Trade Name Freq PRN Reason Stop Dose Admin Acetam/Butalbital/Caffeine/Codeine 1 each 09/23/17 17:31 09/24/17 23:39 Fioricet W/Codeine PO 1 each TID PRN Administration Migraine Headache Acetaminophen/Codeine Phosphate 1 each 09/23/17 18:46 09/26/17 20:24 Tylenol #3 PO 1 each Q4HR PRN Administration Moderate Pain Albuterol/Ipratropium 3 ml 09/23/17 20:00 09/27/17 08:10 Duoneb 0.5 Mg-3 Mg/3 Ml Soln INHALATION 3 ml RT-Q4H [facility]IL[facility] Administration Alprazolam 1 mg 09/23/17 21:00 09/26/17 20:27 Xanax PO 1 mg HS WILBER Administration Alprazolam 0.5 mg 09/24/17 07:30 09/27/17 08:59 Xanax PO 0.5 mg BID-W/MEALS [facility]ILBER Administration Amlodipine Besylate 5 mg 09/24/17 09:00 09/27/17 09:01 Norvasc PO 5 mg DAILY WILBER Administration Amlodipine Besylate 2.5 mg 09/23/17 21:00 09/26/17 20:19 Norvasc PO 2.5 mg HS WILBER Administration Baclofen 10 mg 09/24/17 07:30 09/27/17 05:54 Lioresal PO 10 mg BID-W/MEALS [facility]ILBER Administration Baclofen 20 mg 09/23/17 21:00 09/26/17 20:18 Lioresal PO 20 mg HS WILBER Administration Ca Carbonate/Folic Ac/Mg Carbonate 1 each 09/23/17 21:00 09/27/17 09:00 Magnebind 400 PO 1 each BID WILBER Administration Cholecalciferol 2,000 unit 09/24/17 12:00 09/26/17 14:10 Vitamin D3 PO Not Given DAILY@1200 WILBER Cyclosporine 1 drops 09/23/17 21:00 09/27/17 09:00 Restasis 0.05% Ophth Soln BOTH EYES 1 drops BID WILBER Administration Ferrous Sulfate 325 mg 09/24/17 09:00 09/27/17 09:00 Feosol PO 325 mg DAILY [facility] Administration Fluconazole 100 mg 09/27/17 09:00 09/27/17 09:01 Diflucan PO 100 mg DAILY [facility] Administration Folic Acid 1 mg 09/24/17 12:00 09/26/17 14:10 Folic Acid PO Not Given DAILY@1200 [facility] Gabapentin 100 mg 09/23/17 22:00 09/27/17 09:01 Neurontin PO 100 mg TID [facility]IL[facility] Administration Guaifenesin 1,200 mg 09/23/17 22:45 09/27/17 08:59 Mucinex PO 1,200 mg Q12HR [facility] Administration Heparin Sodium (Porcine) 5,000 unit 09/23/17 22:45 09/27/17 09:01 Heparin SQ 5,000 unit Q12HR [facility]IL[facility] Administration Sodium Chloride 1,000 mls @ 20 mls/hr 09/23/17 17:30 09/26/17 20:18 Saline 0.9% IV Not Given .Q24H [facility] Insulin Aspart 0 unit 09/24/17 07:30 09/27/17 07:04 Novolog SQ Not Given ACHS [facility] Protocol Levofloxacin 750 mg 09/25/17 18:00 09/26/17 16:44 Levaquin PO 750 mg DAILY@1800 [facility] Administration Levothyroxine Sodium 50 mcg 09/24/17 06:30 09/27/17 05:54 Synthroid PO 50 mcg DAILY@0630 [facility] Administration Lorazepam 0.5 mg 09/23/17 18:46 Ativan PO Q6HR PRN Anxiety Melatonin 10 mg 09/23/17 21:00 09/26/17 20:20 Melatonin PO 10 mg HS [facility]IL[facility] Administration Melatonin 3 mg 09/23/17 18:46 Melatonin PO HS PRN Insomnia Miscellaneous Information 1 each 09/26/17 07:34 Potassium Per Protocol MISCELLANE DAILY PRN Per Protocol Protocol Naloxone HCl 0.2 mg 09/23/17 18:46 Narcan IV Q2M PRN Opioid Reversal Nebivolol 20 mg 09/24/17 21:00 09/26/17 20:19 Bystolic PO 20 mg HS [facility] Administration Nystatin 500,000 unit 09/25/17 22:30 09/27/17 09:00 Mycostatin Oral Susp PO 500,000 unit QID [facility] Administration Ondansetron HCl 8 mg 09/23/17 17:31 09/26/17 08:39 Zofran PO 8 mg TID PRN Administration Nausea And Vomiting Ondansetron HCl 4 mg 09/23/17 18:46 09/26/17 16:48 Zofran IVP 4 mg Q8HR PRN Administration Nausea And Vomiting Oxycodone/Acetaminophen 1 each 09/23/17 17:31 09/27/17 05:53 Percocet 10-325 PO 1 each QID PRN Administration Severe Pain Pantoprazole Sodium 40 mg 09/23/17 19:30 09/27/17 05:54 Protonix PO 40 mg AC-BID [facility]ILBER Administration Prednisone 40 mg 09/27/17 09:00 09/27/17 09:02 PO 40 mg DAILY [facility]ILBER Administration Pyridoxine HCl 100 mg 09/24/17 09:00 09/27/17 09:02 Vitamin B-6 PO 100 mg DAILY [facility]ILBER Administration Senna/Docusate Sodium 2 each 09/23/17 21:00 09/26/17 20:19 Senokot-S PO 2 each HS [facility]ILBER Administration Valacyclovir HCl 1,000 mg 09/24/17 09:00 09/27/17 09:01 Valtrex PO 1,000 mg DAILY [facility]IL[facility] Administration Zolpidem Tartrate 10 mg 09/23/17 21:00 09/26/17 20:25 Ambien PO 10 mg HS WILBER Administration Intake and Output 09/26/17 09/27/17 09/27/17 22:59 06:59 14:59 Intake Total 240 Output Total 1600 1600 Balance -1600 -1360 Intake: Oral 240 Output: Urine 1600 1600 Other: Voiding Method Toilet Toilet # Voids 4 3 # Bowel Movements 0 0 Weight 45.2 kg 43 kg 09/26/17 06:06 09/26/17 06:06 EKG Interpretations (text) EKG shows a normal sinus rhythm with occasional PVC, mild ST-T wave changes in leads V5 and 6. Assessment and Plan Plan: Assessment and plan #1 acute respiratory failure secondary to pneumonia. Pulmonary also has some concern regarding atypical pneumonia with pneumonitis based on her exposure to exotic birds and bird droppings. #2 atypical chest discomfort, troponins negative times repeat. EKG shows a normal sinus rhythm with mild ST-T wave changes in the lateral leads. We will repeat an EKG this morning. #3 nicotine dependence #4 hypertension #5 fibromyalgia #6 multiple cervical surgeries #7 previous history of ventilator-dependent respiratory failure secondary to bilateral multi lobar pneumonia and influenza a 2015 Plan We will obtain an echocardiogram with Doppler study. We will also repeat an EKG this morning. Patient's pain is very atypical in nature. 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 Escoto as an outpatient. DNP note has been reviewed, I agree with a documented findings and plan of care. Patient was seen and examined.
--- NOTE | 2017-09-27 11:08 | P.CRDCN ---
History of Present Illness History of present illness: Patient admitted with pneumonitis. Interviewed and examined today. She had an episode of chest discomfort several days back which is thought to be related to pneumonitis. Today we are consulted for heart failure. She is lying flat in bed. She does not appear to be short of breath 3 serial cardiac enzymes are normal First 12-lead ECG showed subtle ST depression 0.5-1 mm with T-wave inversions in the lateral precordial leads. I repeated a ECG once again this morning and it shows T-wave inversions in the anterior precordial leads She is asymptomatic from a cardiac standpoint at this time I reviewed her 2-D echo and LV function is low normal about 50-55%. Final report pending Suggest 1 pneumonitis is treated for coronary workup should be pursued I would recommend at least a baby aspirin and statins for now Please see full dictation by nurse practitioner Past Medical History Past Medical History: Asthma, Chest Pain / Angina, Fibromyalgia, GERD/Reflux, Hypertension, Osteoarthritis (OA), Pneumonia, Renal Disease Additional Past Medical History / Comment(s): degenerative disc disease; ARTHRITIS; MIGRAINES:inner ear equilbrium issue, some renal stenosis, Reynauds disease History of Any Multi-Drug Resistant Organisms: None Reported Past Surgical History: Appendectomy, Back Surgery, Cholecystectomy, Hysterectomy , Orthopedic Surgery, Tubal Ligation Additional Past Surgical History / Comment(s): 3 cervical fusions. ovarian cystMENISCUS SX; SHOULDER SX; CARPAL TUNNEL SX Past Anesthesia/Blood Transfusion Reactions: Motion Sickness Past Psychological History: No Psychological Hx Reported Additional Psychological History / Comment(s): pt. is and lives with her and daughter, pt. is medically disabled, pt. states she does not use any walking aides at home, states her helps care for her Smoking Status: Former smoker Past Alcohol Use History: Occasional Past Drug Use History: None Reported - Past Family History Father Family Medical History: Cancer Mother Family Medical History: Deep Vein Thrombosis (DVT) Medications and Allergies Home Medications Medication Instructions Recorded Confirmed Type RX: Butalbit/Acetamin/Caff/Codeine 1 cap PO TID PRN 11/27/13 09/23/17 History [Fioricet W/Codeine [id number] Cap] RX: Cholecalciferol [Vitamin D3] 2,000 unit PO DAILY 11/27/13 09/23/17 History RX: Folic Acid 1 mg PO DAILY 11/27/13 09/23/17 History RX: Ondansetron HCl [Zofran] 8 mg PO TID PRN 11/27/13 09/23/17 History RX: Pantoprazole Sodium [Protonix] 40 mg PO BID 11/27/13 09/23/17 History RX: Pyridoxine [Vitamin B-6] 100 mg PO DAILY 11/27/13 09/23/17 History RX: Sennosides-Docusate Sodium 2 tab PO HS 11/27/13 09/23/17 History [Senokot-S] RX: Zolpidem [Ambien] 10 mg PO HS 11/27/13 09/23/17 History RX: valACYclovir HCL [Valtrex] 1,000 mg PO DAILY 11/27/13 09/23/17 History RX: Baclofen [Lioresal] 10 mg PO BID 05/02/14 09/23/17 History RX: Baclofen 20 mg PO HS 07/21/14 09/23/17 History ALPRAZolam [Xanax] 0.5 mg PO BID 09/23/17 09/23/17 History ALPRAZolam [Xanax] 1 mg PO HS 09/23/17 09/23/17 History Calcium/Magnesium 1 cap PO BID 09/23/17 09/23/17 History Cyanocobalamin [Vitamin B-12 1,000 mcg SQ Q14D 09/23/17 09/23/17 History Injection] Ferrous Sulfate [Feosol] 325 mg PO DAILY 09/23/17 09/23/17 History Gabapentin [Neurontin] 100 mg PO TID 09/23/17 09/23/17 History Hydrochlorothiazide [Hydrodiuril] 25 mg PO DAILY 09/23/17 09/23/17 History Ipratropium-Albuterol Nebulize 3 ml INHALATION RT-QID PRN 09/23/17 09/23/17 History [Duoneb 0.5 mg-3 mg/3 ml Soln] Levofloxacin [Levaquin] 500 mg PO DAILY 09/23/17 09/23/17 History Levothyroxine Sodium [Synthroid] 50 mcg PO DAILY 09/23/17 09/23/17 History Mometasone/Formoterol [Dulera 200 2 puff INHALATION RT-BID 09/23/17 09/23/17 History Mcg/5 Mcg Inhaler] Nebivolol HCl [Bystolic] 20 mg PO DAILY 09/23/17 09/23/17 History RX: Melatonin 10 mg PO HS 09/23/17 09/23/17 History amLODIPine [Norvasc] 2.5 mg PO HS 09/23/17 09/23/17 History amLODIPine [Norvasc] 5 mg PO DAILY 09/23/17 09/23/17 History cycloSPORINE [Restasis] 1 drop BOTH EYES BID 09/23/17 09/23/17 History oxyCODONE-APAP 10-325MG [Percocet 1 tab PO QID PRN 09/23/17 09/23/17 History 10-325 mg] Allergies Allergy/AdvReac Type Severity Reaction Status Date / Time enoxaparin sodium Allergy Severe "welts" Verified 09/23/17 16:50 [From Lovenox] morphine sulfate Allergy Severe uncontroled Verified 09/23/17 16:50 [From Shania] muscles pregabalin [From Lyrica] Allergy Severe Swelling,rash Verified 09/23/17 16:50 all over body amoxicillin [From Augmentin] Allergy Unknown Verified 09/23/17 16:50 atomoxetine HCl Allergy Rash/Hives Verified 09/23/17 16:50 [From Strattera] ceftriaxone [From Rocephin] Allergy Unknown Verified 09/23/17 16:50 cefuroxime [From Ceftin] Allergy Unknown Verified 09/23/17 16:50 clarithromycin [From Biaxin] Allergy Rash/Hives Verified 09/23/17 16:50 clavulanic acid Allergy Unknown Verified 09/23/17 16:50 [From Augmentin] duloxetine HCl Allergy Rash/Hives Verified 09/23/17 16:50 [From Cymbalta] fentanyl Allergy Unknown Verified 09/23/17 16:50 metoprolol Allergy Unknown Verified 09/23/17 16:50 NSAIDS (Non-Steroidal Allergy bleeding Verified 09/23/17 16:50 Anti-Inflamma ulcer valsartan [From Diovan] Allergy Unknown Verified 09/23/17 16:50 warfarin sodium Allergy Rash/Hives Verified 09/23/17 16:50 [From Coumadin] axetil Allergy Rash/Hives Uncoded 09/23/17 15:11 Physical Exam Vitals: Vital Signs Temp Pulse Pulse Resp BP Pulse Ox 09/27/17 08:23 80 09/27/17 08:12 76 92 L 09/27/17 08:00 97.4 F L 71 128/60 96 09/27/17 03:00 97.4 F L 68 16 113/78 95 09/27/17 00:47 84 09/27/17 00:31 84 09/26/17 23:58 97.4 F L 68 18 112/60 95 09/26/17 20:40 88 09/26/17 20:29 88 09/26/17 20:00 97.5 F L 78 18 115/69 96 09/26/17 16:30 92 09/26/17 16:18 88 09/26/17 15:58 98.3 F 74 120/68 95 09/26/17 12:00 73 117/57 96 Intake and Output 09/26/17 09/27/17 09/27/17 22:59 06:59 14:59 Intake Total 240 Output Total 1600 1600 Balance -1600 -1360 Intake: Oral 240 Output: Urine 1600 1600 Other: Voiding Method Toilet Toilet # Voids 4 3 # Bowel Movements 0 0 Weight 45.2 kg 43 kg Results 09/26/17 06:06 09/26/17 06:06 Current Medications Generic Name Dose Route Start Last Admin Trade Name Freq PRN Reason Stop Dose Admin Acetam/Butalbital/Caffeine/Codeine 1 each 09/23/17 17:31 09/24/17 23:39 Fioricet W/Codeine PO 1 each TID PRN Administration Migraine Headache Acetaminophen/Codeine Phosphate 1 each 09/23/17 18:46 09/26/17 20:24 Tylenol #3 PO 1 each Q4HR PRN Administration Moderate Pain Albuterol/Ipratropium 3 ml 09/23/17 20:00 09/27/17 08:10 Duoneb 0.5 Mg-3 Mg/3 Ml Soln INHALATION 3 ml RT-Q4H WILBER Administration Alprazolam 1 mg 09/23/17 21:00 09/26/17 20:27 Xanax PO 1 mg HS WILBER Administration Alprazolam 0.5 mg 09/24/17 07:30 09/27/17 08:59 Xanax PO 0.5 mg BID-W/MEALS WILBER Administration Amlodipine Besylate 5 mg 09/24/17 09:00 09/27/17 09:01 Norvasc PO 5 mg DAILY WILBER Administration Amlodipine Besylate 2.5 mg 09/23/17 21:00 09/26/17 20:19 Norvasc PO 2.5 mg HS WILBER Administration Baclofen 10 mg 09/24/17 07:30 09/27/17 05:54 Lioresal PO 10 mg BID-W/MEALS WILBER Administration Baclofen 20 mg 09/23/17 21:00 09/26/17 20:18 Lioresal PO 20 mg HS WILBER Administration Ca Carbonate/Folic Ac/Mg Carbonate 1 each 09/23/17 21:00 09/27/17 09:00 Magnebind 400 PO 1 each BID WILBER Administration Cholecalciferol 2,000 unit 09/24/17 12:00 09/26/17 14:10 Vitamin D3 PO Not Given DAILY@1200 [facility] Cyclosporine 1 drops 09/23/17 21:00 09/27/17 09:00 Restasis 0.05% Ophth Soln BOTH EYES 1 drops BID [facility] Administration Ferrous Sulfate 325 mg 09/24/17 09:00 09/27/17 09:00 Feosol PO 325 mg DAILY WILBER Administration Fluconazole 100 mg 09/27/17 09:00 09/27/17 09:01 Diflucan PO 100 mg DAILY WILBER Administration Folic Acid 1 mg 09/24/17 12:00 09/26/17 14:10 Folic Acid PO Not Given DAILY@1200 [facility] Gabapentin 100 mg 09/23/17 22:00 09/27/17 09:01 Neurontin PO 100 mg TID [facility] Administration Guaifenesin 1,200 mg 09/23/17 22:45 09/27/17 08:59 Mucinex PO 1,200 mg Q12HR WILBER Administration Heparin Sodium (Porcine) 5,000 unit 09/23/17 22:45 09/27/17 09:01 Heparin SQ 5,000 unit Q12HR WILBER Administration Sodium Chloride 1,000 mls @ 20 mls/hr 09/23/17 17:30 09/26/17 20:18 Saline 0.9% IV Not Given .Q24H WILBER Insulin Aspart 0 unit 09/24/17 07:30 09/27/17 07:04 Novolog SQ Not Given ACHS [facility] Protocol Levofloxacin 750 mg 09/25/17 18:00 09/26/17 16:44 Levaquin PO 750 mg DAILY@1800 [facility]IL[facility] Administration Levothyroxine Sodium 50 mcg 09/24/17 06:30 09/27/17 05:54 Synthroid PO 50 mcg DAILY@0630 [facility]IL[facility] Administration Lorazepam 0.5 mg 09/23/17 18:46 Ativan PO Q6HR PRN Anxiety Melatonin 10 mg 09/23/17 21:00 09/26/17 20:20 Melatonin PO 10 mg HS WILBER Administration Melatonin 3 mg 09/23/17 18:46 Melatonin PO HS PRN Insomnia Miscellaneous Information 1 each 09/26/17 07:34 Potassium Per Protocol MISCELLANE DAILY PRN Per Protocol Protocol Naloxone HCl 0.2 mg 09/23/17 18:46 Narcan IV Q2M PRN Opioid Reversal Nebivolol 20 mg 09/24/17 21:00 09/26/17 20:19 Bystolic PO 20 mg HS WILBER Administration Nystatin 500,000 unit 09/25/17 22:30 09/27/17 09:00 Mycostatin Oral Susp PO 500,000 unit QID WILBER Administration Ondansetron HCl 8 mg 09/23/17 17:31 09/26/17 08:39 Zofran PO 8 mg TID PRN Administration Nausea And Vomiting Ondansetron HCl 4 mg 09/23/17 18:46 09/26/17 16:48 Zofran IVP 4 mg Q8HR PRN Administration Nausea And Vomiting Oxycodone/Acetaminophen 1 each 09/23/17 17:31 09/27/17 05:53 Percocet 10-325 PO 1 each QID PRN Administration Severe Pain Pantoprazole Sodium 40 mg 09/23/17 19:30 09/27/17 05:54 Protonix PO 40 mg AC-BID WILBER Administration Prednisone 40 mg 09/27/17 09:00 09/27/17 09:02 PO 40 mg DAILY WILBER Administration Pyridoxine HCl 100 mg 09/24/17 09:00 09/27/17 09:02 Vitamin B-6 PO 100 mg DAILY WILBER Administration Senna/Docusate Sodium 2 each 09/23/17 21:00 09/26/17 20:19 Senokot-S PO 2 each HS WILBER Administration Valacyclovir HCl 1,000 mg 09/24/17 09:00 09/27/17 09:01 Valtrex PO 1,000 mg DAILY WILBER Administration Zolpidem Tartrate 10 mg 09/23/17 21:00 09/26/17 20:25 Ambien PO 10 mg HS WILBER Administration Intake and Output 09/26/17 09/27/17 09/27/17 22:59 06:59 14:59 Intake Total 240 Output Total 1600 1600 Balance -1600 -1360 Intake: Oral 240 Output: Urine 1600 1600 Other: Voiding Method Toilet Toilet # Voids 4 3 # Bowel Movements 0 0 Weight 45.2 kg 43 kg 09/26/17 06:06 09/26/17 06:06
[2017-09-27 11:51] LABS: Glucose,Whole Blood 127 mg/dL (75-99)
--- NOTE | 2017-09-27 12:15 | XR ---
EXAMINATION TYPE: XR chest 1V portable DATE OF EXAM: 09/27/2017 HISTORY: Shortness of breath. COMPARISON: 09/25/2017 TECHNIQUE: Single view of the chest is submitted. FINDINGS: Demonstrated are scattered senescent parenchymal change. Hyperinflation compatible with COPD. There is a patchy infiltrate demonstrates interval improvement. The heart is stable. Hilar and mediastinal structures are within normal limits. Degenerative changes are seen of the dorsal spine. IMPRESSION: 1. There is a patchy infiltrate demonstrates interval improvement.
[2017-09-27] MEDS: FOLIC ACID 1 MG TAB PO SCH (12:30)
[2017-09-27] MEDS: CHOLECALCIFEROL 1,000 UNIT TAB PO SCH (12:30)
--- NOTE | 2017-09-27 12:42 | P.PN ---
Subjective Progress Note Date: 09/27/17 Principal diagnosis: Acute hypoxic respiratory failure secondary to community-acquired pneumonia. This is a very pleasant 56-year-old female patient who follows with Dr. Landa as her primary care physician. She has a history of fibromyalgia, hypertension , recurrent sinusitis, chronic constipation, ventilatory dependent respiratory failure secondary to bilateral pneumonia and influenza A infection in July 2014, TIA. She presented here yesterday with complaints of increasing shortness of breath, cough and congestion. Productive sputum of yellowish reynaga. Fever chills and night sweats. She was treated in the outpatient setting with Levaquin. No significant improvement. She states she had been up visiting her father in [place] who has many exotic birds. She states the cages are not that clean and she usually does have some upper respiratory issues after visiting him. He also is a heavy smoker. She herself is a previous smoker. Her chest x-ray reveals some patchy infiltrates throughout the lungs right greater than left. Possible pneumonia versus atypical infection and interstitial pneumonitis. White count 8.6. Hemoglobin 13.1. ProBNP 5020. Influenza screen is negative. She is seen today in consultation on the selective care unit. She is awake and alert in no acute distress. She does have a loose nonproductive cough currently. Maintaining O2 saturations in the 90s on 4 L/m per nasal cannula. She is afebrile. Hemodynamically stable. His been initiated on IV Levaquin. The patient has multiple ALLERGIES to most antibiotics. She is also on IV Solu-Medrol, IV Lasix and bronchodilators. Patient was reevaluated today on 09/25/2017, seems to be doing much better, breathing easier, less cough, less wheezing, less shortness of breath. No fever in the last 24 hours, her vital signs are stable. O2 saturation is 97% on 3 L nasal cannula. No labs were done today except for blood sugar 129. Chest x-ray from today was reviewed, and contrary to what the radiologist feels , I feel the chest x-ray is improving, not to mention the patient is also clinically improve. Reevaluated today on 09/26/2017, patient is feeling better, breathing easier, less cough and less wheezing less shortness of breath. Patient is tolerating treatment well, and at this point I feel the patient could be considered for discharge planning in the next 24 hours. Reevaluated today on 09/27/2017, for some reason the patient is much worse today compared to yesterday. More cough, more wheezing, and more shortness of breath noted today. Chest x-ray is showing definite improvement compared to the admission chest x-ray. I reviewed the chest x-ray, there is definite improvement in the patchy infiltrates in the upper lobes, continues to have significant infiltrates in the lower lobes. Clinically, the patient seems to be getting worse. Objective - Vital Signs Vital signs: Vital Signs Temp 97.4 F L 09/27/17 08:00 Pulse 88 09/27/17 11:50 Resp 18 09/27/17 03:00 BP 128/60 09/27/17 08:00 Pulse Ox 92 L 09/27/17 08:12 Intake & Output 09/26/17 09/27/17 09/27/17 18:59 06:59 18:59 Intake Total 840 240 20 Output Total 800 2400 Balance 40 -2160 20 Weight 45.2 kg 43 kg Intake: Intake, IV Titration 40 20 Amount Sodium Chloride 0.9% 1, 40 20 000 ml @ 20 mls/hr IV . Q24H [facility] Rx#:[id number] Oral 800 240 Output: Urine 800 2400 Other: Voiding Method Toilet # Voids 4 3 # Bowel Movements 0 0 - Exam GENERAL EXAM: Frail, cachectic, noted to have significant intermittent episodes of cough. HEAD: Normocephalic. EYES: Normal reaction of pupils, equal size. NOSE: Clear with pink turbinates. THROAT: No erythema or exudates. NECK: No masses, no JVD. CHEST: No chest wall deformity. LUNGS: Equal air entry, rhonchi and wheezes noted bilaterally. CVS: S1 and S2 normal with no audible murmur, regular rhythm. ABDOMEN: No hepatosplenomegaly, normal bowel sounds, no guarding or rigidity. SPINE: No scoliosis or deformity SKIN: No rashes CENTRAL NERVOUS SYSTEM: No focal deficits, tone is normal in all 4 extremities. EXTREMITIES: There is no peripheral edema. No clubbing, no cyanosis. Peripheral pulses are intact. - Labs CBC & Chem 7: 09/26/17 06:06 09/26/17 06:06 Labs: Abnormal Lab Results - Last 24 Hours (Table) 09/26/17 09/27/17 Range/Units 21:16 11:48 POC Glucose (mg/dL) 117 H 127 H (75-99) mg/dL Microbiology - Last 24 Hours (Table) 09/26/17 04:00 Sputum Culture - Final Sputum Not Reportable Assessment and Plan Assessment: #1 Acute hypoxic respiratory failure secondary to community-acquired pneumonia. Some concern regarding atypical pneumonia with pneumonitis based on her exposure to exotic birds and bird droppings. Patient seems to be worse today compared to the last few days, although the chest x-ray did show improvement, patient is not quite ready for any discharge planning at this point. , I will recommend that we continue the same medications, continue bronchodilators, steroids, #2 Previous history of ventilatory dependent respiratory failure secondary to bilateral multilobar pneumonia and influenza A infection in July 2014. #3 History of chronic tobacco dependence. #4 Fibromyalgia. #5 Hypertension. #6 Anxiety. #7 Chronic pain syndrome. #8 Chronic sinusitis with multiple sinus surgeries. Recommendation: Continue present treatment plan including antibiotics steroids bronchodilators, not ready for discharge planning today. Discussed her condition with the admitting physician Dr. Cooper. Time with Patient: Less than 30
[2017-09-27 17:24] LABS: Glucose,Whole Blood 130 mg/dL (75-99)
[2017-09-27] MEDS: SODIUM CHLORIDE 0.9% 1,000 ML IV SCH (17:59)
[2017-09-27] MEDS: LEVOFLOXACIN 750 MG TAB PO SCH (18:00)
[2017-09-27] MEDS: BUTA/APAP/CAF/COD 50-325-40-30 CAP PO PRN ×2 (18:37→23:50)
[2017-09-27] MEDS: ONDANSETRON 4 MG/2 ML VIAL IVP PRN (18:38)
--- NOTE | 2017-09-27 18:43 | PN ---
PROGRESS NOTE DATE OF SERVICE: 09/27/2017 PRESENTING COMPLAINT: Cough, short of breath. INTERVAL HISTORY: Patient presented with multilobar pneumonia, COPD exacerbation. Cough is a bit better today. Breathing is a bit better today. Also treated for oropharyngeal thrush. Appetite is slowly better. The patient is somewhat tired. REVIEW OF SYSTEMS: Done for constitutional, cardiovascular, GI, pulmonary; relevant findings as above. CURRENT MEDICATIONS: Reviewed. They include Diflucan and Levaquin. PHYSICAL EXAMINATION: Afebrile. Pulse 71, respiration 20, blood pressure 128/60, pulse ox 96% on 1 L. GENERAL APPEARANCE: Sitting up, tired-appearing. EYES: Pupils equal. Conjunctivae normal. HEENT: External appearance of nose and ears normal. Oral cavity with decreased whitish patches. NECK: JVD not raised. Mass not palpable. RESPIRATORY: Effort increased. LUNGS: Decreased breath sounds with decreased crackles and decreased wheezing. CARDIOVASCULAR: First and second sounds normal. No edema. ABDOMEN: Soft, nontender. Liver and spleen not palpable. PSYCHIATRY: Alert and oriented x3. Mood and affect normal. INVESTIGATIONS: Accu-Cheks noted. Chest x-ray shows some improvement. ASSESSMENT: 1. Bilateral multilobar pneumonia. Suspect Gram-negative organism causing sepsis, present on admission, with sputum cultures being negative. Patient has improved to a certain degree. 2. Acute chronic obstructive pulmonary disease exacerbation in an ex-smoker. 3. Oropharyngeal candidiasis, improving. 4. Chronic pain syndrome. 5. Gastroesophageal reflux disease. 6. Essential hypertension. 7. Primary osteoarthritis in multiple joints. 8. Raynaud disease. 9. Moderate protein-calorie malnutrition with decreased oral intake. PLAN: Case was discussed at length with Dr. Shook. Awaiting 2-D echocardiogram. The patient has improved clinically and radiologically and will continue to do the same. If does not improve much more significantly, then patient will probably need bronchoscopy with lavage. This was discussed with the patient. MMODL / IJN: [id number] /
--- NOTE | 2017-09-27 19:36 | ECHOF ---
Referral Reason:assess LV function MEASUREMENTS -------- HEIGHT: 160.0 cm WEIGHT: 44.9 kg BP: 122/77 IVSd: 0.7 cm (0.6 - 1.1) LVIDd: 3.7 cm (3.9 - 5.3) LVPWd: 0.9 cm (0.6 - 1.1) IVSs: 1.0 cm LVIDs: 2.4 cm LVPWs: 1.4 cm Ao Diam: 2.9 cm (2.0 - 3.7) AV Cusp: 1.9 cm (1.5 - 2.6) LA Diam: 3.1 cm (2.7 - 3.8) MV EXCURSION: 16.920 mm (> 18.000) MV EF SLOPE: 131 mm/s (70 - 150) EPSS: 1.1 cm MV E Greg: 0.50 m/s MV DecT: 196 ms MV A Greg: 0.50 m/s MV E/A Ratio: 1.00 AR PHT: 175 ms RAP: 5.00 mmHg RVSP: 33.76 mmHg FINDINGS -------- Sinus rhythm. This was a technically difficult study with suboptimal views. Pt. Has Breast inplants The left ventricular size is normal. Left ventricular wall thickness is normal. Overall left vent ricular systolic function is normal with, an EF between 55 - 60 %. The right ventricle is normal in size and function. The left atrium is normal in size. The right atrium is normal in size. Trace amount of aortic regurgitation. The mitral valve leaflets are mildly thickened. There is trace mitral regurgitation. Trace tricuspid regurgitation present. The right ventricular systolic pressure, as measured by Dopp ler, is 33.76mmHg. Pulmonic valve appears structurally normal. The aortic root, ascending aorta and aortic arch are normal. The pericardium is normal. CONCLUSIONS -------- 1. Sinus rhythm. 2. This was a technically difficult study with suboptimal views. 3. Pt. Has Breast inplants 4. The left ventricular size is normal. 5. Left ventricular wall thickness is normal. 6. Overall left ventricular systolic function is normal with, an EF between 55 - 60 %. 7. The right ventricle is normal in size and function. 8. The left atrium is normal in size. 9. The right atrium is normal in size. 10. Trace amount of aortic regurgitation. 11. The mitral valve leaflets are mildly thickened. 12. There is trace mitral regurgitation. 13. Trace tricuspid regurgitation present. 14. The right ventricular systolic pressure, as measured by Doppler, is 33.76mmHg. 15. Pulmonic valve appears structurally normal. 16. The aortic root, ascending aorta and aortic arch are normal. 17. The pericardium is normal. [employer]: Sydney Wilcox RDCS
[2017-09-27 21:24] LABS: Glucose,Whole Blood 189 mg/dL (75-99)
[2017-09-27] MEDS: amLODIPine 2.5 MG TAB PO SCH (23:48)
[2017-09-27] MEDS: ALPRAZolam 1 MG TAB PO SCH (23:48)
[2017-09-27] MEDS: NEBIVOLOL 5 MG TAB PO SCH (23:49)
[2017-09-27] MEDS: SENNOSIDES-DOCUSATE SODIUM 1 EACH TAB PO SCH (23:50)
[2017-09-28] MEDS: MELATONIN 5 MG TABLET PO SCH ×2 (00:01→23:29)
[2017-09-28] MEDS: ZOLPIDEM 10 MG TAB PO SCH ×2 (00:01→23:30)
[2017-09-28] MEDS: IPRATROPIUM-ALBUTEROL 3 ML NEB INHALATION SCH ×7 (01:35→23:35)
[2017-09-28 06:02] LABS: Glucose,Whole Blood 92 mg/dL (75-99)
[2017-09-28] MEDS: INSULIN ASPART 100 UNIT/ML 1 ML 10 ML VIAL SQ SCH ×4 (06:03→21:22)
[2017-09-28 06:13] LABS: Calcium 8.7 mg/dL (8.4-10.2); Potassium 3.6 mmol/L (3.5-5.1)
[2017-09-28 06:20] LABS: Basophils % (A) 0 %; Eosinophils % (A) 0 %; HCT 44.2 % (34.0-46.0); Lymphocytes # (A) 1.1 k/uL (1.0-4.8); Lymphocytes % (A) 12 %; MCH 37.1 pg (25.0-35.0); MCV 109.1 fL (80.0-100.0); Macrocytosis Moderate; Mean Platelet Volume 6.8; Monocytes # (A) 0.7 k/uL (0-1.0); Monocytes % (A) 8 %; Neutrophils # (A) 7.5 k/uL (1.3-7.7); Neutrophils % (A) 77 %; Platelet Count 391 k/uL (150-450); RBC 4.05 m/uL (3.80-5.40); WBC 9.8 k/uL (3.8-10.6)
[2017-09-28] MEDS: ALPRAZolam 0.5 MG TAB PO SCH ×2 (06:33→17:18)
[2017-09-28] MEDS: LEVOTHYROXINE 50 MCG TAB PO SCH (06:33)
[2017-09-28] MEDS: oxyCODONE-APAP 10-325MG 1 EACH TAB PO PRN ×3 (06:34→23:39)
[2017-09-28] MEDS: PANTOPRAZOLE 40 MG TABLET PO SCH ×2 (06:34→17:18)
[2017-09-28] MEDS: BACLOFEN 10 MG TAB PO SCH ×3 (06:34→23:38)
[2017-09-28] MEDS: PYRIDOXINE 50 MG TAB PO SCH (08:53)
[2017-09-28] MEDS: FLUCONAZOLE 100 MG TAB PO SCH (08:53)
[2017-09-28] MEDS: GABAPENTIN 100 MG CAP PO SCH ×3 (08:53→23:39)
[2017-09-28] MEDS: guaiFENesin 600 MG TABLET.ER PO SCH ×2 (08:54→23:38)
[2017-09-28] MEDS: NYSTATIN 100,000 UNIT/ML SUSP 500,000 UNIT/5 ML CUP PO SCH ×4 (08:54→23:39)
[2017-09-28] MEDS: FERROUS SULFATE 325 MG TAB PO SCH (08:54)
[2017-09-28] MEDS: BUTA/APAP/CAF/COD 50-325-40-30 CAP PO PRN (08:54)
[2017-09-28] MEDS: predniSONE 20 MG TAB PO SCH (08:54)
[2017-09-28] MEDS: HEPARIN SODIUM,PORCINE 5,000 UNIT/ML 1 ML VIAL SQ SCH ×2 (08:54→23:39)
[2017-09-28] MEDS: CALCIUM CARB-MAG CARB-FOLIC 1 EACH TAB PO SCH ×2 (08:54→23:38)
[2017-09-28] MEDS: amLODIPine 5 MG TAB PO SCH (08:54)
[2017-09-28] MEDS: cycloSPORINE 0.05% OPHTH 0.4 ML DROPERETTE BOTH EYES SCH ×2 (08:55→23:38)
[2017-09-28] MEDS: valACYclovir HCL 1,000 MG TABLET PO SCH (09:02)
--- NOTE | 2017-09-28 11:29 | P.PN ---
Subjective 57-year-old female admitted for cerebral exacerbation and atypical pneumonia patient is still wheezing with rhonchus breath sounds and pulmonology his considering bronchoscopy patient is on levofloxacin at this point of time patient is on 3 L of onset doesn't wear any oxygen at home. Having cough with significant amount of sputum production Constitutional: Denied any fatigue denied any fever. Cardio vascular: denied any chest pain, palpitations Gastrointestinal denied any nausea vomiting Pulmonary: As mentioned in the interval history Neurologic denied any new focal deficits Objective - Vital Signs Vital signs: Vital Signs Temp 96.0 F L 09/28/17 08:00 Pulse 84 09/28/17 09:01 Resp 20 09/28/17 08:00 BP 118/60 09/28/17 08:00 Pulse Ox 98 09/28/17 08:50 Intake & Output 09/27/17 09/28/17 09/28/17 18:59 06:59 18:59 Intake Total 516 20 Output Total 650 Balance -134 20 Weight 44.6 kg Intake: IV 20 0.9 20 Intake, IV Titration 40 Amount Sodium Chloride 0.9% 1, 40 000 ml @ 20 mls/hr IV . Q24H [facility] Rx#:[id number] Oral 476 Output: Urine 650 Other: Voiding Method Toilet - Exam PHYSICAL EXAMINATION: GENERAL: The patient is alert and oriented x3, not in any acute distress. Well developed, well nourished. HEENT: Pupils are round and equally reacting to light. EOMI. No scleral icterus. No conjunctival pallor. Normocephalic, atraumatic. No pharyngeal erythema. No thyromegaly. CARDIOVASCULAR: S1 and S2 present. No murmurs, rubs, or gallops. PULMONARY: Significant bilateral expiratory wheezing bilateral crackles were appreciated. ABDOMEN: Soft, nontender, nondistended, normoactive bowel sounds. No palpable organomegaly. MUSCULOSKELETAL: No joint swelling or deformity. EXTREMITIES: No cyanosis, clubbing, or pedal edema. NEUROLOGICAL: Gross neurological examination did not reveal any focal deficits. SKIN: No rashes. - Labs CBC & Chem 7: 09/28/17 05:37 09/28/17 05:37 Labs: Abnormal Lab Results - Last 24 Hours (Table) 09/27/17 09/27/17 09/27/17 Range/Units 11:48 17:09 21:20 MCV (80.0-100.0) fL MCH (25.0-35.0) pg Sodium (137-145) mmol/L Chloride (98-107) mmol/L Carbon Dioxide (22-30) mmol/L BUN (7-17) mg/dL Glucose (74-99) mg/dL POC Glucose (mg/dL) 127 H 130 H 189 H (75-99) mg/dL 09/28/17 09/28/17 Range/Units 05:37 05:37 MCV 109.1 H (80.0-100.0) fL MCH 37.1 H (25.0-35.0) pg Sodium 136 L (137-145) mmol/L Chloride 87 L (98-107) mmol/L Carbon Dioxide 43 H* (22-30) mmol/L BUN 32 H (7-17) mg/dL Glucose 72 L (74-99) mg/dL POC Glucose (mg/dL) (75-99) mg/dL Microbiology - Last 24 Hours (Table) 09/26/17 04:00 Gram Stain - Final Sputum Sputum Culture - Final Assessment and Plan Plan: - Acute hypoxic and hypercapnic respiratory failure secondary to community- acquired pneumonia. Some concern regarding atypical pneumonia with pneumonitis based on her exposure to exotic birds and bird droppings. Patient is presently on levofloxacin, I will recommend that we continue the same medications, continue bronchodilators, steroids, patient does have COPD exacerbation as well -COPD with acute exacerbation -Fibromyalgia. - Hypertension. -Anxiety. - Chronic pain syndrome.
[2017-09-28 11:48] LABS: Glucose,Whole Blood 142 mg/dL (75-99)
--- NOTE | 2017-09-28 11:48 | P.PN ---
Subjective Progress Note Date: 09/28/17 Principal diagnosis: Acute hypoxic respiratory failure secondary to community-acquired pneumonia. This is a very pleasant 56-year-old female patient who follows with Dr. Landa as her primary care physician. She has a history of fibromyalgia, hypertension , recurrent sinusitis, chronic constipation, ventilatory dependent respiratory failure secondary to bilateral pneumonia and influenza A infection in July 2014, TIA. She presented here yesterday with complaints of increasing shortness of breath, cough and congestion. Productive sputum of yellowish reynaga. Fever chills and night sweats. She was treated in the outpatient setting with Levaquin. No significant improvement. She states she had been up visiting her father in [place] who has many exotic birds. She states the cages are not that clean and she usually does have some upper respiratory issues after visiting him. He also is a heavy smoker. She herself is a previous smoker. Her chest x-ray reveals some patchy infiltrates throughout the lungs right greater than left. Possible pneumonia versus atypical infection and interstitial pneumonitis. White count 8.6. Hemoglobin 13.1. ProBNP 5020. Influenza screen is negative. She is seen today in consultation on the selective care unit. She is awake and alert in no acute distress. She does have a loose nonproductive cough currently. Maintaining O2 saturations in the 90s on 4 L/m per nasal cannula. She is afebrile. Hemodynamically stable. His been initiated on IV Levaquin. The patient has multiple ALLERGIES to most antibiotics. She is also on IV Solu-Medrol, IV Lasix and bronchodilators. Patient was reevaluated today on 09/25/2017, seems to be doing much better, breathing easier, less cough, less wheezing, less shortness of breath. No fever in the last 24 hours, her vital signs are stable. O2 saturation is 97% on 3 L nasal cannula. No labs were done today except for blood sugar 129. Chest x-ray from today was reviewed, and contrary to what the radiologist feels , I feel the chest x-ray is improving, not to mention the patient is also clinically improve. Reevaluated today on 09/26/2017, patient is feeling better, breathing easier, less cough and less wheezing less shortness of breath. Patient is tolerating treatment well, and at this point I feel the patient could be considered for discharge planning in the next 24 hours. Reevaluated today on 09/27/2017, for some reason the patient is much worse today compared to yesterday. More cough, more wheezing, and more shortness of breath noted today. Chest x-ray is showing definite improvement compared to the admission chest x-ray. I reviewed the chest x-ray, there is definite improvement in the patchy infiltrates in the upper lobes, continues to have significant infiltrates in the lower lobes. Clinically, the patient seems to be getting worse. Reevaluated today on 09/28/2017, patient continues to have cough wheezing shortness of breath, continues to have diffuse rhonchi and wheezes bilaterally. Clearly not ready for any discharge planning at this point, I have switched her back from prednisone to Solu-Medrol since this was changed earlier by the admitting physician. Patient is not clearly ready to be switched to oral prednisone. Considering her clinical findings needs to remain on Solu-Medrol at relatively high dose. I have also added a touch of diuresis since her initial chest x-ray did show some component of interstitial edema. Follow-up chest x-ray did show improvement, but not significant. Objective - Vital Signs Vital signs: Vital Signs Temp 96.0 F L 09/28/17 08:00 Pulse 84 09/28/17 09:01 Resp 20 09/28/17 08:00 BP 118/60 09/28/17 08:00 Pulse Ox 98 09/28/17 08:50 Intake & Output 09/27/17 09/28/17 09/28/17 18:59 06:59 18:59 Intake Total 516 20 Output Total 650 Balance -134 20 Weight 44.6 kg Intake: IV 20 0.9 20 Intake, IV Titration 40 Amount Sodium Chloride 0.9% 1, 40 000 ml @ 20 mls/hr IV . Q24H [facility] Rx#:[id number] Oral 476 Output: Urine 650 Other: Voiding Method Toilet - Exam GENERAL EXAM: Frail, cachectic, noted to have significant intermittent episodes of cough. HEAD: Normocephalic. EYES: Normal reaction of pupils, equal size. NOSE: Clear with pink turbinates. THROAT: No erythema or exudates. NECK: No masses, no JVD. CHEST: No chest wall deformity. LUNGS: Equal air entry, rhonchi and wheezes noted bilaterally. CVS: S1 and S2 normal with no audible murmur, regular rhythm. ABDOMEN: No hepatosplenomegaly, normal bowel sounds, no guarding or rigidity. SPINE: No scoliosis or deformity SKIN: No rashes CENTRAL NERVOUS SYSTEM: No focal deficits, tone is normal in all 4 extremities. EXTREMITIES: There is no peripheral edema. No clubbing, no cyanosis. Peripheral pulses are intact. - Labs CBC & Chem 7: 09/28/17 05:37 09/28/17 05:37 Labs: Abnormal Lab Results - Last 24 Hours (Table) 09/27/17 09/27/17 09/27/17 Range/Units 11:48 17:09 21:20 MCV (80.0-100.0) fL MCH (25.0-35.0) pg Sodium (137-145) mmol/L Chloride (98-107) mmol/L Carbon Dioxide (22-30) mmol/L BUN (7-17) mg/dL Glucose (74-99) mg/dL POC Glucose (mg/dL) 127 H 130 H 189 H (75-99) mg/dL 09/28/17 09/28/17 Range/Units 05:37 05:37 MCV 109.1 H (80.0-100.0) fL MCH 37.1 H (25.0-35.0) pg Sodium 136 L (137-145) mmol/L Chloride 87 L (98-107) mmol/L Carbon Dioxide 43 H* (22-30) mmol/L BUN 32 H (7-17) mg/dL Glucose 72 L (74-99) mg/dL POC Glucose (mg/dL) (75-99) mg/dL Microbiology - Last 24 Hours (Table) 09/26/17 04:00 Gram Stain - Final Sputum Sputum Culture - Final Assessment and Plan Assessment: #1 Acute hypoxic respiratory failure secondary to community-acquired pneumonia. Some concern regarding atypical pneumonia with pneumonitis based on her exposure to exotic birds and bird droppings. Patient seems to be worse today compared to the last few days, although the chest x-ray did show improvement, patient is not quite ready for any discharge planning at this point. , I will recommend that we continue the same medications, continue bronchodilators, steroids, #2 Previous history of ventilatory dependent respiratory failure secondary to bilateral multilobar pneumonia and influenza A infection in July 2014. #3 History of chronic tobacco dependence. #4 Fibromyalgia. #5 Hypertension. #6 Anxiety. #7 Chronic pain syndrome. #8 Chronic sinusitis with multiple sinus surgeries. Recommendation: Continue present treatment plan including antibiotics steroids bronchodilators, not ready for discharge planning today. However the patient continues to have those symptoms by Saturday, she will likely need to be bronchoscoped. Follow-up chest x-ray will be done on Saturday. Time with Patient: Less than 30
[2017-09-28] MEDS: CHOLECALCIFEROL 1,000 UNIT TAB PO SCH (11:57)
[2017-09-28] MEDS: methylPREDNISolone SOD SUCCI 125 MG/2 ML VIAL IV SCH ×3 (11:57→23:39)
[2017-09-28] MEDS: FOLIC ACID 1 MG TAB PO SCH (11:57)
[2017-09-28] MEDS: FUROSEMIDE 20 MG TAB PO SCH (11:57)
[2017-09-28 17:14] LABS: Glucose,Whole Blood 207 mg/dL (75-99)
[2017-09-28] MEDS: LEVOFLOXACIN 750 MG TAB PO SCH (17:18)
[2017-09-28] MEDS: SODIUM CHLORIDE 0.9% 1,000 ML IV SCH (17:19)
[2017-09-28 20:40] LABS: Glucose,Whole Blood 145 mg/dL (75-99)
[2017-09-28] MEDS: amLODIPine 2.5 MG TAB PO SCH (23:38)
[2017-09-28] MEDS: ALPRAZolam 1 MG TAB PO SCH (23:38)
[2017-09-28] MEDS: NEBIVOLOL 5 MG TAB PO SCH (23:39)
[2017-09-28] MEDS: SENNOSIDES-DOCUSATE SODIUM 1 EACH TAB PO SCH (23:39)
[2017-09-28] MEDS: ONDANSETRON 4 MG TAB PO PRN (23:40)
[2017-09-29] MEDS: BUTA/APAP/CAF/COD 50-325-40-30 CAP PO PRN ×3 (00:06→23:21)
[2017-09-29] MEDS: IPRATROPIUM-ALBUTEROL 3 ML NEB INHALATION SCH ×6 (03:04→23:25)
[2017-09-29 05:59] LABS: Glucose,Whole Blood 106 mg/dL (75-99)
[2017-09-29] MEDS: INSULIN ASPART 100 UNIT/ML 1 ML 10 ML VIAL SQ SCH ×4 (06:03→23:19)
[2017-09-29] MEDS: LEVOTHYROXINE 50 MCG TAB PO SCH (06:40)
[2017-09-29] MEDS: ALPRAZolam 0.5 MG TAB PO SCH ×2 (06:40→17:08)
[2017-09-29] MEDS: BACLOFEN 10 MG TAB PO SCH ×3 (06:41→23:18)
[2017-09-29] MEDS: oxyCODONE-APAP 10-325MG 1 EACH TAB PO PRN ×4 (06:41→23:21)
[2017-09-29] MEDS: PANTOPRAZOLE 40 MG TABLET PO SCH ×2 (06:41→17:08)
[2017-09-29] MEDS: methylPREDNISolone SOD SUCCI 125 MG/2 ML VIAL IV SCH ×4 (06:42→23:20)
[2017-09-29] MEDS: FUROSEMIDE 20 MG TAB PO SCH (08:26)
[2017-09-29] MEDS: cycloSPORINE 0.05% OPHTH 0.4 ML DROPERETTE BOTH EYES SCH ×2 (08:26→23:18)
[2017-09-29] MEDS: valACYclovir HCL 1,000 MG TABLET PO SCH (08:26)
[2017-09-29] MEDS: FLUCONAZOLE 100 MG TAB PO SCH (08:26)
[2017-09-29] MEDS: CALCIUM CARB-MAG CARB-FOLIC 1 EACH TAB PO SCH ×2 (08:26→23:18)
[2017-09-29] MEDS: GABAPENTIN 100 MG CAP PO SCH ×3 (08:26→23:20)
[2017-09-29] MEDS: PYRIDOXINE 50 MG TAB PO SCH (08:26)
[2017-09-29] MEDS: guaiFENesin 600 MG TABLET.ER PO SCH ×2 (08:26→23:19)
[2017-09-29] MEDS: NYSTATIN 100,000 UNIT/ML SUSP 500,000 UNIT/5 ML CUP PO SCH ×4 (08:27→23:20)
[2017-09-29] MEDS: HEPARIN SODIUM,PORCINE 5,000 UNIT/ML 1 ML VIAL SQ SCH ×2 (08:27→23:19)
[2017-09-29] MEDS: amLODIPine 5 MG TAB PO SCH (08:27)
[2017-09-29] MEDS: FERROUS SULFATE 325 MG TAB PO SCH (08:27)
[2017-09-29 11:19] LABS: Glucose,Whole Blood 166 mg/dL (75-99)
--- NOTE | 2017-09-29 12:11 | P.PN ---
Subjective 57-year-old female admitted for cerebral exacerbation and atypical pneumonia patient is still wheezing with rhonchus breath sounds and pulmonology his considering bronchoscopy patient is on levofloxacin at this point of time patient is on 3 L of onset doesn't wear any oxygen at home. Having cough with significant amount of sputum production. 09/29/2017 Patient was pretty status improved patient wheezing improved compared to yesterday. Constitutional: Denied any fatigue denied any fever. Cardio vascular: denied any chest pain, palpitations Gastrointestinal denied any nausea vomiting Pulmonary: As mentioned in the interval history Neurologic denied any new focal deficits Objective - Vital Signs Vital signs: Vital Signs Temp 97.0 F L 09/29/17 11:46 Pulse 90 09/29/17 11:46 Resp 18 09/29/17 11:46 BP 118/59 09/29/17 11:46 Pulse Ox 94 L 09/29/17 11:46 Intake & Output 09/28/17 09/29/17 09/29/17 18:59 06:59 18:59 Intake Total 478 242 360 Output Total 2400 Balance 478 -2158 360 Weight 46.4 kg Intake: IV 20 0.9 20 Oral 478 222 360 Output: Urine 2400 Other: Voiding Method Toilet Toilet - Exam PHYSICAL EXAMINATION: GENERAL: The patient is alert and oriented x3, not in any acute distress. Well developed, well nourished. HEENT: Pupils are round and equally reacting to light. EOMI. No scleral icterus. No conjunctival pallor. Normocephalic, atraumatic. No pharyngeal erythema. No thyromegaly. CARDIOVASCULAR: S1 and S2 present. No murmurs, rubs, or gallops. PULMONARY: bilateral expiratory wheezing and bilateral submental bilateral crackles improved ABDOMEN: Soft, nontender, nondistended, normoactive bowel sounds. No palpable organomegaly. MUSCULOSKELETAL: No joint swelling or deformity. EXTREMITIES: No cyanosis, clubbing, or pedal edema. NEUROLOGICAL: Gross neurological examination did not reveal any focal deficits. SKIN: No rashes. - Labs CBC & Chem 7: 09/28/17 05:37 09/28/17 05:37 Labs: Abnormal Lab Results - Last 24 Hours (Table) 09/28/17 09/28/17 09/29/17 Range/Units 16:47 20:34 05:48 POC Glucose (mg/dL) 207 H 145 H 106 H (75-99) mg/dL 09/29/17 Range/Units 11:13 POC Glucose (mg/dL) 166 H (75-99) mg/dL Microbiology - Last 24 Hours (Table) 09/26/17 04:00 Gram Stain - Final Sputum Sputum Culture - Final Assessment and Plan Plan: - Acute hypoxic and hypercapnic respiratory failure secondary to community- acquired pneumonia. Some concern regarding atypical pneumonia with pneumonitis based on her exposure to exotic birds and bird droppings. Patient is presently on levofloxacin, I will recommend that we continue the same medications, continue bronchodilators, steroids, patient does have COPD exacerbation as well -COPD with acute exacerbation -Fibromyalgia. - Hypertension. -Anxiety. - Chronic pain syndrome.
[2017-09-29] MEDS: FOLIC ACID 1 MG TAB PO SCH (12:20)
[2017-09-29] MEDS: CHOLECALCIFEROL 1,000 UNIT TAB PO SCH (12:20)
--- NOTE | 2017-09-29 13:38 | P.PN ---
Subjective Progress Note Date: 09/29/17 Principal diagnosis: Acute hypoxic respiratory failure secondary to community-acquired pneumonia. This is a very pleasant 56-year-old female patient who follows with Dr. Landa as her primary care physician. She has a history of fibromyalgia, hypertension , recurrent sinusitis, chronic constipation, ventilatory dependent respiratory failure secondary to bilateral pneumonia and influenza A infection in July 2014, TIA. She presented here yesterday with complaints of increasing shortness of breath, cough and congestion. Productive sputum of yellowish reynaga. Fever chills and night sweats. She was treated in the outpatient setting with Levaquin. No significant improvement. She states she had been up visiting her father in [place] who has many exotic birds. She states the cages are not that clean and she usually does have some upper respiratory issues after visiting him. He also is a heavy smoker. She herself is a previous smoker. Her chest x-ray reveals some patchy infiltrates throughout the lungs right greater than left. Possible pneumonia versus atypical infection and interstitial pneumonitis. White count 8.6. Hemoglobin 13.1. ProBNP 5020. Influenza screen is negative. She is seen today in consultation on the selective care unit. She is awake and alert in no acute distress. She does have a loose nonproductive cough currently. Maintaining O2 saturations in the 90s on 4 L/m per nasal cannula. She is afebrile. Hemodynamically stable. His been initiated on IV Levaquin. The patient has multiple ALLERGIES to most antibiotics. She is also on IV Solu-Medrol, IV Lasix and bronchodilators. Patient was reevaluated today on 09/25/2017, seems to be doing much better, breathing easier, less cough, less wheezing, less shortness of breath. No fever in the last 24 hours, her vital signs are stable. O2 saturation is 97% on 3 L nasal cannula. No labs were done today except for blood sugar 129. Chest x-ray from today was reviewed, and contrary to what the radiologist feels , I feel the chest x-ray is improving, not to mention the patient is also clinically improve. Reevaluated today on 09/26/2017, patient is feeling better, breathing easier, less cough and less wheezing less shortness of breath. Patient is tolerating treatment well, and at this point I feel the patient could be considered for discharge planning in the next 24 hours. Reevaluated today on 09/27/2017, for some reason the patient is much worse today compared to yesterday. More cough, more wheezing, and more shortness of breath noted today. Chest x-ray is showing definite improvement compared to the admission chest x-ray. I reviewed the chest x-ray, there is definite improvement in the patchy infiltrates in the upper lobes, continues to have significant infiltrates in the lower lobes. Clinically, the patient seems to be getting worse. Reevaluated today on 09/28/2017, patient continues to have cough wheezing shortness of breath, continues to have diffuse rhonchi and wheezes bilaterally. Clearly not ready for any discharge planning at this point, I have switched her back from prednisone to Solu-Medrol since this was changed earlier by the admitting physician. Patient is not clearly ready to be switched to oral prednisone. Considering her clinical findings needs to remain on Solu-Medrol at relatively high dose. I have also added a touch of diuresis since her initial chest x-ray did show some component of interstitial edema. Follow-up chest x-ray did show improvement, but not significant. Reevaluated today on 09/29/2017, slight improvement but continues to have intermittent cough wheezing shortness of breath. Labs were reviewed, patient had a relatively normal basic metabolic profile. Her electrolytes were noted at her bicarb is 43 speaks in favor of significant COPD and chronic compensatory metabolic acidosis. Her last chest x-ray showed some improvement, patient would have another chest x-ray done tomorrow and decide whether the patient could be discharged home or could even require bronchoscopy. Objective - Vital Signs Vital signs: Vital Signs Temp 97.0 F L 09/29/17 11:46 Pulse 90 09/29/17 11:46 Resp 18 09/29/17 11:46 BP 118/59 09/29/17 11:46 Pulse Ox 94 L 09/29/17 11:46 Intake & Output 09/28/17 09/29/17 09/29/17 18:59 06:59 18:59 Intake Total 478 242 600 Output Total 2400 Balance 478 -2158 600 Weight 46.4 kg Intake: IV 20 0.9 20 Oral 478 222 600 Output: Urine 2400 Other: Voiding Method Toilet Toilet - Exam GENERAL EXAM: Frail, cachectic, resting in bed, in no distress. HEAD: Normocephalic. EYES: Normal reaction of pupils, equal size. NOSE: Clear with pink turbinates. THROAT: No erythema or exudates. NECK: No masses, no JVD. CHEST: No chest wall deformity. LUNGS: Equal air entry, rhonchi and wheezes noted bilaterally. More so on forced expiratory maneuver. CVS: S1 and S2 normal with no audible murmur, regular rhythm. ABDOMEN: No hepatosplenomegaly, normal bowel sounds, no guarding or rigidity. SPINE: No scoliosis or deformity SKIN: No rashes CENTRAL NERVOUS SYSTEM: No focal deficits, tone is normal in all 4 extremities. EXTREMITIES: There is no peripheral edema. No clubbing, no cyanosis. Peripheral pulses are intact. - Labs CBC & Chem 7: 09/28/17 05:37 09/28/17 05:37 Labs: Abnormal Lab Results - Last 24 Hours (Table) 09/28/17 09/28/17 09/29/17 Range/Units 16:47 20:34 05:48 POC Glucose (mg/dL) 207 H 145 H 106 H (75-99) mg/dL 09/29/17 Range/Units 11:13 POC Glucose (mg/dL) 166 H (75-99) mg/dL Microbiology - Last 24 Hours (Table) 09/26/17 04:00 Gram Stain - Final Sputum Sputum Culture - Final Assessment and Plan Assessment: #1 Acute hypoxic respiratory failure secondary to community-acquired pneumonia. Clinically, there is some improvement, but not as much as expected. Hence a follow-up chest x-ray will be done in a.m., and a decision will have to be made whether the patient will even require bronchoscopy or discharge home on follow- up on outpatient basis. , I will recommend that we continue the same medications, continue bronchodilators, steroids, #2 Previous history of ventilatory dependent respiratory failure secondary to bilateral multilobar pneumonia and influenza A infection in July 2014. #3 History of chronic tobacco dependence. #4 Fibromyalgia. #5 Hypertension. #6 Anxiety. #7 Chronic pain syndrome. #8 Chronic sinusitis with multiple sinus surgeries. Recommendation: Continue bronchodilators, antibiotics, steroids, recheck chest x -ray in a.m., and decide whether to discharge home or consider bronchoscopy. Time with Patient: Less than 30
[2017-09-29] MEDS: SODIUM CHLORIDE 0.9% 1,000 ML IV SCH (16:28)
[2017-09-29 16:48] LABS: Glucose,Whole Blood 158 mg/dL (75-99)
[2017-09-29] MEDS: LEVOFLOXACIN 750 MG TAB PO SCH (17:08)
[2017-09-29 20:40] LABS: Glucose,Whole Blood 186 mg/dL (75-99)
[2017-09-29] MEDS: ALPRAZolam 1 MG TAB PO SCH (23:17)
[2017-09-29] MEDS: ZOLPIDEM 10 MG TAB PO SCH (23:20)
[2017-09-29] MEDS: MELATONIN 5 MG TABLET PO SCH (23:20)
[2017-09-29] MEDS: SENNOSIDES-DOCUSATE SODIUM 1 EACH TAB PO SCH (23:20)
[2017-09-29] MEDS: NEBIVOLOL 5 MG TAB PO SCH (23:20)
[2017-09-29] MEDS: ONDANSETRON 4 MG/2 ML VIAL IVP PRN (23:21)
[2017-09-29] MEDS: amLODIPine 2.5 MG TAB PO SCH (23:22)
[2017-09-30] MEDS: IPRATROPIUM-ALBUTEROL 3 ML NEB INHALATION SCH ×6 (03:22→23:17)
[2017-09-30 06:18] LABS: HCT 40.8 % (34.0-46.0); HGB 13.6 gm/dL (11.4-16.0); MCH 36.2 pg (25.0-35.0); MCHC 33.4 g/dL (31.0-37.0); MCV 108.6 fL (80.0-100.0); Macrocytosis Moderate; Mean Platelet Volume 6.9; Platelet Count 402 k/uL (150-450); RBC 3.75 m/uL (3.80-5.40); WBC 20.5 k/uL (3.8-10.6)
[2017-09-30] MEDS: INSULIN ASPART 100 UNIT/ML 1 ML 10 ML VIAL SQ SCH ×4 (06:26→23:03)
[2017-09-30 06:28] LABS: Glucose,Whole Blood 125 mg/dL (75-99)
[2017-09-30] MEDS: ALPRAZolam 0.5 MG TAB PO SCH ×2 (06:30→15:39)
[2017-09-30] MEDS: oxyCODONE-APAP 10-325MG 1 EACH TAB PO PRN ×3 (06:30→19:39)
[2017-09-30] MEDS: BACLOFEN 10 MG TAB PO SCH ×3 (06:31→23:03)
[2017-09-30] MEDS: PANTOPRAZOLE 40 MG TABLET PO SCH ×2 (06:31→17:22)
[2017-09-30] MEDS: LEVOTHYROXINE 50 MCG TAB PO SCH (06:31)
[2017-09-30] MEDS: methylPREDNISolone SOD SUCCI 125 MG/2 ML VIAL IV SCH ×4 (06:31→23:02)
[2017-09-30 06:33] LABS: Anion Gap 5 mmol/L; Blood Urea Nitrogen 19 mg/dL (7-17); Calcium 8.2 mg/dL (8.4-10.2); Carbon Dioxide 39 mmol/L (22-30); Chloride 89 mmol/L (98-107); Glucose 101 mg/dL (74-99); Potassium 3.9 mmol/L (3.5-5.1); Sodium 133 mmol/L (137-145)
--- NOTE | 2017-09-30 07:25 | XR ---
EXAMINATION TYPE: XR chest 2V DATE OF EXAM: 09/30/2017 COMPARISON: 09/27/2017 HISTORY: Follow-up for pneumonia. Shortness of breath. TECHNIQUE: Frontal and lateral views of the chest are obtained. FINDINGS: The reticular right lower lobe opacity appears worsened in the interim with a component of atelectasis possible. There is new cephalization relates to mild pulmonary vascular congestion that may be on the basis of noncardiogenic fluid overload. Cardiac silhouette is within normal limits. No sizable pleural effusion or pneumothorax. Pulmonary hyperinflation relates underlying COPD. Osseous s tructures are grossly intact with mild degenerative changes of the thoracic spine. IMPRESSION: Worsening reticular right lower lung opacity although a new component of atelectasis may contribute to the radiographic worsening. Additionally there is new mild ulnar vascular congestion f avored to be in the basis of noncardiogenic fluid overload.
[2017-09-30] MEDS: GABAPENTIN 100 MG CAP PO SCH ×3 (08:39→23:04)
[2017-09-30] MEDS: CALCIUM CARB-MAG CARB-FOLIC 1 EACH TAB PO SCH ×2 (08:39→23:03)
[2017-09-30] MEDS: valACYclovir HCL 1,000 MG TABLET PO SCH (08:39)
[2017-09-30] MEDS: cycloSPORINE 0.05% OPHTH 0.4 ML DROPERETTE BOTH EYES SCH ×2 (08:41→23:04)
[2017-09-30] MEDS: FERROUS SULFATE 325 MG TAB PO SCH (08:41)
[2017-09-30] MEDS: FLUCONAZOLE 100 MG TAB PO SCH (08:42)
[2017-09-30] MEDS: guaiFENesin 600 MG TABLET.ER PO SCH ×2 (08:42→23:04)
[2017-09-30] MEDS: FUROSEMIDE 20 MG TAB PO SCH (08:42)
[2017-09-30] MEDS: HEPARIN SODIUM,PORCINE 5,000 UNIT/ML 1 ML VIAL SQ SCH ×2 (08:43→23:02)
[2017-09-30] MEDS: NYSTATIN 100,000 UNIT/ML SUSP 500,000 UNIT/5 ML CUP PO SCH ×4 (08:45→23:05)
[2017-09-30] MEDS: PYRIDOXINE 50 MG TAB PO SCH (08:45)
[2017-09-30 11:21] LABS: Glucose,Whole Blood 189 mg/dL (75-99)
[2017-09-30] MEDS: FOLIC ACID 1 MG TAB PO SCH (12:14)
[2017-09-30] MEDS: amLODIPine 5 MG TAB PO SCH (12:14)
[2017-09-30] MEDS: ONDANSETRON 4 MG TAB PO PRN (12:23)
[2017-09-30 13:30] VITALS: BMI 18.7
--- NOTE | 2017-09-30 13:36 | P.PN ---
Subjective 57-year-old female admitted for cerebral exacerbation and atypical pneumonia patient is still wheezing with rhonchus breath sounds and pulmonology his considering bronchoscopy patient is on levofloxacin at this point of time patient is on 3 L of onset doesn't wear any oxygen at home. Having cough with significant amount of sputum production. 09/29/2017 Patient was pretty status improved patient wheezing improved compared to yesterday. 09/30/2017 Patient feels run down, respiratory exam is worse chest x-ray showing increased infiltrate. Constitutional: Denied any fatigue denied any fever. Cardio vascular: denied any chest pain, palpitations Gastrointestinal denied any nausea vomiting Pulmonary: As mentioned in the interval history Neurologic denied any new focal deficits Objective - Vital Signs Vital signs: Vital Signs Temp 98.1 F 09/30/17 11:52 Pulse 88 09/30/17 12:55 Resp 16 09/30/17 11:52 BP 119/59 09/30/17 11:52 Pulse Ox 94 L 09/30/17 11:52 Intake & Output 09/29/17 09/30/17 09/30/17 18:59 06:59 18:59 Intake Total 850 600 Output Total 1400 1400 900 Balance -550 -1400 -300 Weight 48 kg 48 kg Intake: Intake, IV Titration 10 Amount Sodium Chloride 0.9% 1, 10 000 ml @ 20 mls/hr IV . Q24H [facility] Rx#:[id number] Oral 840 600 Output: Urine 1400 1400 900 Other: Voiding Method Toilet Toilet Toilet - Exam PHYSICAL EXAMINATION: GENERAL: The patient is alert and oriented x3, not in any acute distress. Well developed, well nourished. HEENT: Pupils are round and equally reacting to light. EOMI. No scleral icterus. No conjunctival pallor. Normocephalic, atraumatic. No pharyngeal erythema. No thyromegaly. CARDIOVASCULAR: S1 and S2 present. No murmurs, rubs, or gallops. PULMONARY: bilateral expiratory wheezing and bilateral crackles was compared to yesterday ABDOMEN: Soft, nontender, nondistended, normoactive bowel sounds. No palpable organomegaly. MUSCULOSKELETAL: No joint swelling or deformity. EXTREMITIES: No cyanosis, clubbing, or pedal edema. NEUROLOGICAL: Gross neurological examination did not reveal any focal deficits. SKIN: No rashes. - Labs CBC & Chem 7: 09/30/17 06:00 09/30/17 06:00 Labs: Abnormal Lab Results - Last 24 Hours (Table) 09/29/17 09/29/17 09/30/17 Range/Units 16:30 20:39 06:00 WBC 20.5 H (3.8-10.6) k/uL RBC 3.75 L (3.80-5.40) m/uL MCV 108.6 H (80.0-100.0) fL MCH 36.2 H (25.0-35.0) pg Sodium (137-145) mmol/L Chloride (98-107) mmol/L Carbon Dioxide (22-30) mmol/L BUN (7-17) mg/dL Glucose (74-99) mg/dL POC Glucose (mg/dL) 158 H 186 H (75-99) mg/dL Calcium (8.4-10.2) mg/dL 09/30/17 09/30/17 09/30/17 Range/Units 06:00 06:19 11:18 WBC (3.8-10.6) k/uL RBC (3.80-5.40) m/uL MCV (80.0-100.0) fL MCH (25.0-35.0) pg Sodium 133 L (137-145) mmol/L Chloride 89 L (98-107) mmol/L Carbon Dioxide 39 H (22-30) mmol/L BUN 19 H (7-17) mg/dL Glucose 101 H (74-99) mg/dL POC Glucose (mg/dL) 125 H 189 H (75-99) mg/dL Calcium 8.2 L (8.4-10.2) mg/dL Assessment and Plan Plan: - Acute hypoxic and hypercapnic respiratory failure secondary to community- acquired pneumonia. Some concern regarding atypical pneumonia with pneumonitis based on her exposure to exotic birds and bird droppings. Patient is presently on levofloxacin, continue with systemic steroids inhalational treatments further plan depending on pulmonology evaluation -COPD with acute exacerbation -Fibromyalgia. - Hypertension. -Anxiety. - Chronic pain syndrome.
--- NOTE | 2017-09-30 14:30 | P.PN ---
Subjective Progress Note Date: 09/30/17 Principal diagnosis: Respiratory failure This is a 57-year-old female with history of acute hypoxemic respiratory failure secondary to community-acquired pneumonia. In addition, the patient has a history of previous ventilator dependent secondary to bilateral multilobar pneumonia and influenza A and 2015 chronic tobacco dependence 5 around hypertension anxiety chronic pain syndrome chronic sinus disease. The patient has been in the hospital for about 7 days. States that her breathing is much improved. As a bit of a cough. Not producing any phlegm. No fever or chills. No chest pain or chest discomfort. No nausea vomiting or diarrhea. Chest x-ray shows mild fluid overload or some infiltrate at the right lung base. Objective - Vital Signs Vital signs: Vital Signs Temp 98.1 F 09/30/17 11:52 Pulse 88 09/30/17 12:55 Resp 16 09/30/17 11:52 BP 119/59 09/30/17 11:52 Pulse Ox 94 L 09/30/17 11:52 Intake & Output 09/29/17 09/30/17 09/30/17 18:59 06:59 18:59 Intake Total 850 600 Output Total 1400 1400 900 Balance -550 -1400 -300 Weight 48 kg 48 kg Intake: Intake, IV Titration 10 Amount Sodium Chloride 0.9% 1, 10 000 ml @ 20 mls/hr IV . Q24H [facility] Rx#:[id number] Oral 840 600 Output: Urine 1400 1400 900 Other: Voiding Method Toilet Toilet Toilet - Exam No acute distress, oriented 3. HEENT examination is grossly unremarkable. Mucous membranes are moist. No oral lesions. Neck supple. Full range of motion. No adenopathy thyromegaly or neck vein distention. Cardiovascular examination reveals regular rhythm rate. S1-S2 normal. No S3 or S4. No discernible murmur noted. Lungs reveal mild expiratory rhonchi. Her sounds are equal bilaterally. No wheezes. No crackles.. Abdomen soft bowel sounds are heard. No masses or tenderness. Extremities are intact. No cyanosis clubbing or edema. Skin is without rash or lesion. Neurologic examination is brief but nonfocal. - Labs CBC & Chem 7: 09/30/17 06:00 09/30/17 06:00 Labs: Abnormal Lab Results - Last 24 Hours (Table) 09/29/17 09/29/17 09/30/17 Range/Units 16:30 20:39 06:00 WBC 20.5 H (3.8-10.6) k/uL RBC 3.75 L (3.80-5.40) m/uL MCV 108.6 H (80.0-100.0) fL MCH 36.2 H (25.0-35.0) pg Sodium (137-145) mmol/L Chloride (98-107) mmol/L Carbon Dioxide (22-30) mmol/L BUN (7-17) mg/dL Glucose (74-99) mg/dL POC Glucose (mg/dL) 158 H 186 H (75-99) mg/dL Calcium (8.4-10.2) mg/dL 09/30/17 09/30/17 09/30/17 Range/Units 06:00 06:19 11:18 WBC (3.8-10.6) k/uL RBC (3.80-5.40) m/uL MCV (80.0-100.0) fL MCH (25.0-35.0) pg Sodium 133 L (137-145) mmol/L Chloride 89 L (98-107) mmol/L Carbon Dioxide 39 H (22-30) mmol/L BUN 19 H (7-17) mg/dL Glucose 101 H (74-99) mg/dL POC Glucose (mg/dL) 125 H 189 H (75-99) mg/dL Calcium 8.2 L (8.4-10.2) mg/dL Assessment and Plan Assessment: Assessment Hypoxemic respiratory failure secondary to community-acquired pneumonia Previous history of ventilator dependence and respiratory failure secondary to bilateral multilobar pneumonia and influenza A, 2015 History of chronic tobacco dependence with possible COPD Fibromyalgia Hypertension Anxiety Chronic pain syndrome Chronic sinus disease Plan: Plan dated 09/30/2017 The patient will continue with supportive care which includes bronchodilators antibiotic steroids and a follow-up chest x-ray which was done. In my opinion, the patient does not need bronchoscopy. She looks pretty good. The patient is doing better. Chest x-ray is not that bad. Minimal infiltrate in the right lower lobe. We'll continue to follow. Time with Patient: Less than 30
[2017-09-30] MEDS: CHOLECALCIFEROL 1,000 UNIT TAB PO SCH (15:34)
[2017-09-30] MEDS: BUTA/APAP/CAF/COD 50-325-40-30 CAP PO PRN ×2 (15:39→23:05)
[2017-09-30 16:38] LABS: Glucose,Whole Blood 122 mg/dL (75-99)
[2017-09-30] MEDS: LEVOFLOXACIN 750 MG TAB PO SCH (17:22)
[2017-09-30 20:52] LABS: Glucose,Whole Blood 181 mg/dL (75-99)
[2017-09-30] MEDS: SODIUM CHLORIDE 0.9% 1,000 ML IV SCH (22:54)
[2017-09-30] MEDS: ALPRAZolam 1 MG TAB PO SCH (23:02)
[2017-09-30] MEDS: ZOLPIDEM 10 MG TAB PO SCH (23:02)
[2017-09-30] MEDS: ONDANSETRON 4 MG/2 ML VIAL IVP PRN (23:02)
[2017-09-30] MEDS: amLODIPine 2.5 MG TAB PO SCH (23:03)
[2017-09-30] MEDS: MELATONIN 5 MG TABLET PO SCH (23:04)
[2017-09-30] MEDS: NEBIVOLOL 5 MG TAB PO SCH (23:04)
[2017-09-30] MEDS: SENNOSIDES-DOCUSATE SODIUM 1 EACH TAB PO SCH (23:05)
[2017-10-01] MEDS: oxyCODONE-APAP 10-325MG 1 EACH TAB PO PRN ×4 (01:35→19:54)
[2017-10-01] MEDS: IPRATROPIUM-ALBUTEROL 3 ML NEB INHALATION SCH ×7 (03:20→23:54)
[2017-10-01] MEDS: methylPREDNISolone SOD SUCCI 125 MG/2 ML VIAL IV SCH ×4 (06:14→23:00)
[2017-10-01] MEDS: LEVOTHYROXINE 50 MCG TAB PO SCH (06:14)
[2017-10-01 07:38] LABS: Basophils % (A) 0 %; Eosinophils % (A) 0 %; HGB 13.3 gm/dL (11.4-16.0); Lymphocytes # (A) 0.5 k/uL (1.0-4.8); Lymphocytes % (A) 4 %; MCH 36.2 pg (25.0-35.0); MCHC 33.3 g/dL (31.0-37.0); MCV 108.7 fL (80.0-100.0); Macrocytosis Moderate; Mean Platelet Volume 6.9; Monocytes # (A) 0.6 k/uL (0-1.0); Monocytes % (A) 4 %; Neutrophils % (A) 90 %; Platelet Count 418 k/uL (150-450); RBC 3.67 m/uL (3.80-5.40); RDW 12.2 % (11.5-15.5); WBC 14.4 k/uL (3.8-10.6)
[2017-10-01 07:49] LABS: Anion Gap 5 mmol/L; Blood Urea Nitrogen 21 mg/dL (7-17); Calcium 8.5 mg/dL (8.4-10.2); Carbon Dioxide 39 mmol/L (22-30); Chloride 92 mmol/L (98-107); Glucose 92 mg/dL (74-99); Potassium 4.4 mmol/L (3.5-5.1); Sodium 136 mmol/L (137-145)
[2017-10-01] MEDS: valACYclovir HCL 1,000 MG TABLET PO SCH (07:52)
[2017-10-01] MEDS: NYSTATIN 100,000 UNIT/ML SUSP 500,000 UNIT/5 ML CUP PO SCH ×4 (07:53→23:01)
[2017-10-01] MEDS: HEPARIN SODIUM,PORCINE 5,000 UNIT/ML 1 ML VIAL SQ SCH ×2 (07:53→23:03)
[2017-10-01] MEDS: PYRIDOXINE 50 MG TAB PO SCH (07:53)
[2017-10-01] MEDS: guaiFENesin 600 MG TABLET.ER PO SCH ×2 (07:53→23:02)
[2017-10-01] MEDS: FUROSEMIDE 20 MG TAB PO SCH (07:54)
[2017-10-01] MEDS: FERROUS SULFATE 325 MG TAB PO SCH (07:54)
[2017-10-01] MEDS: cycloSPORINE 0.05% OPHTH 0.4 ML DROPERETTE BOTH EYES SCH ×2 (07:54→23:02)
[2017-10-01] MEDS: GABAPENTIN 100 MG CAP PO SCH ×3 (07:54→23:02)
[2017-10-01] MEDS: FLUCONAZOLE 100 MG TAB PO SCH (07:54)
[2017-10-01] MEDS: CALCIUM CARB-MAG CARB-FOLIC 1 EACH TAB PO SCH ×2 (07:55→23:02)
[2017-10-01] MEDS: amLODIPine 5 MG TAB PO SCH (07:55)
[2017-10-01] MEDS: ALPRAZolam 0.5 MG TAB PO SCH ×2 (07:56→18:14)
[2017-10-01] MEDS: BACLOFEN 10 MG TAB PO SCH ×3 (07:56→23:02)
[2017-10-01] MEDS: PANTOPRAZOLE 40 MG TABLET PO SCH ×2 (07:56→18:13)
[2017-10-01 07:57] LABS: Glucose,Whole Blood 113 mg/dL (75-99)
[2017-10-01] MEDS: ONDANSETRON 4 MG/2 ML VIAL IVP PRN ×2 (08:06→23:00)
[2017-10-01] MEDS: INSULIN ASPART 100 UNIT/ML 1 ML 10 ML VIAL SQ SCH ×4 (08:51→23:00)
[2017-10-01 11:22] LABS: Glucose,Whole Blood 106 mg/dL (75-99)
--- NOTE | 2017-10-01 12:43 | P.PN ---
Subjective Progress Note Date: 10/01/17 Principal diagnosis: Acute hypoxic respiratory failure secondary to community-acquired pneumonia This is a very pleasant 56-year-old female patient who follows with Dr. Landa as her primary care physician. She has a history of fibromyalgia, hypertension , recurrent sinusitis, chronic constipation, ventilatory dependent respiratory failure secondary to bilateral pneumonia and influenza A infection in July 2014, TIA. She presented here yesterday with complaints of increasing shortness of breath, cough and congestion. Productive sputum of yellowish reynaga. Fever chills and night sweats. She was treated in the outpatient setting with Levaquin. No significant improvement. She states she had been up visiting her father in [place] who has many exotic birds. She states the cages are not that clean and she usually does have some upper respiratory issues after visiting him. He also is a heavy smoker. She herself is a previous smoker. Her chest x-ray reveals some patchy infiltrates throughout the lungs right greater than left. Possible pneumonia versus atypical infection and interstitial pneumonitis. White count 8.6. Hemoglobin 13.1. ProBNP 5020. Influenza screen is negative. She is seen today in consultation on the selective care unit. She is awake and alert in no acute distress. She does have a loose nonproductive cough currently. Maintaining O2 saturations in the 90s on 4 L/m per nasal cannula. She is afebrile. Hemodynamically stable. His been initiated on IV Levaquin. The patient has multiple ALLERGIES to most antibiotics. She is also on IV Solu-Medrol, IV Lasix and bronchodilators. Patient was reevaluated today on 09/25/2017, seems to be doing much better, breathing easier, less cough, less wheezing, less shortness of breath. No fever in the last 24 hours, her vital signs are stable. O2 saturation is 97% on 3 L nasal cannula. No labs were done today except for blood sugar 129. Chest x-ray from today was reviewed, and contrary to what the radiologist feels , I feel the chest x-ray is improving, not to mention the patient is also clinically improve. Reevaluated today on 09/26/2017, patient is feeling better, breathing easier, less cough and less wheezing less shortness of breath. Patient is tolerating treatment well, and at this point I feel the patient could be considered for discharge planning in the next 24 hours. Reevaluated today on 09/27/2017, for some reason the patient is much worse today compared to yesterday. More cough, more wheezing, and more shortness of breath noted today. Chest x-ray is showing definite improvement compared to the admission chest x-ray. I reviewed the chest x-ray, there is definite improvement in the patchy infiltrates in the upper lobes, continues to have significant infiltrates in the lower lobes. Clinically, the patient seems to be getting worse. Reevaluated today on 09/28/2017, patient continues to have cough wheezing shortness of breath, continues to have diffuse rhonchi and wheezes bilaterally. Clearly not ready for any discharge planning at this point, I have switched her back from prednisone to Solu-Medrol since this was changed earlier by the admitting physician. Patient is not clearly ready to be switched to oral prednisone. Considering her clinical findings needs to remain on Solu-Medrol at relatively high dose. I have also added a touch of diuresis since her initial chest x-ray did show some component of interstitial edema. Follow-up chest x-ray did show improvement, but not significant. Reevaluated today on 09/29/2017, slight improvement but continues to have intermittent cough wheezing shortness of breath. Labs were reviewed, patient had a relatively normal basic metabolic profile. Her electrolytes were noted at her bicarb is 43 speaks in favor of significant COPD and chronic compensatory metabolic acidosis. Her last chest x-ray showed some improvement, patient would have another chest x-ray done tomorrow and decide whether the patient could be discharged home or could even require bronchoscopy. This is a 57-year-old female with history of acute hypoxemic respiratory failure secondary to community-acquired pneumonia. In addition, the patient has a history of previous ventilator dependent secondary to bilateral multilobar pneumonia and influenza A and 2015 chronic tobacco dependence 5 around hypertension anxiety chronic pain syndrome chronic sinus disease. The patient has been in the hospital for about 7 days. States that her breathing is much improved. As a bit of a cough. Not producing any phlegm. No fever or chills. No chest pain or chest discomfort. No nausea vomiting or diarrhea. Chest x-ray shows mild fluid overload or some infiltrate at the right lung base. On 10/01/2017 patient seen in follow-up on medical surgical floor. She remains congested, not able to produce any sputum. Remains dyspneic, she states there has not been significant improvement in her respiratory status. Lung sounds are positive for coarse scattered rhonchi bilaterally, she remains on 2 L per nasal cannula with O2 sat 94%. She is afebrile, hemodynamically stable. Yesterday's chest x-ray was reviewed with Dr. Vaughn today. Right lower lung opacity persists, with mild vascular congestioN. Patient has been on Solu- Medrol 60 mg every 6 hours, Valtrex, oral Levaquin, Diflucan, nebulized treatments. We will add Pulmicort and Perforomist. She states she had an episode of substernal crushing chest pain this morning 10 out of 10, at rest, that lasted approximately 1 hour. Her chest pain subsided after administration of oral Xanax. We'll obtain 12 the EKG, a set of cardiac enzymes and troponins today. Objective - Vital Signs Vital signs: Vital Signs Temp 97.5 F L 10/01/17 07:00 Pulse 84 10/01/17 11:22 Resp 18 10/01/17 07:00 BP 140/70 10/01/17 07:00 Pulse Ox 94 L 10/01/17 07:00 Intake & Output 09/30/17 10/01/17 10/01/17 18:59 06:59 18:59 Intake Total 840 Output Total 1600 1350 Balance -760 -1350 Weight 48 kg 52 kg Intake: Oral 840 Output: Urine 1600 1350 Other: Voiding Method Toilet Toilet Toilet - Exam GENERAL EXAM: Alert, 57-year-old thin white female, comfortable in no apparent distress. HEAD: Normocephalic/atraumatic. EYES: Normal reaction of pupils, equal size. Conjunctiva pink, sclera white. NOSE: Clear with pink turbinates. THROAT: No erythema or exudates. NECK: No masses, no JVD, no thyroid enlargement, no adenopathy. CHEST: No chest wall deformity. Symmetrical expansion. LUNGS: Equal air entry with scattered rhonchi bilaterally CVS: Regular rate and rhythm, normal S1 and S2, no gallops, no murmurs, no rubs ABDOMEN: Soft, nontender. No hepatosplenomegaly, normal bowel sounds, no guarding or rigidity. EXTREMITIES: No clubbing, no edema, no cyanosis, 2+ pulses and upper and lower extremities. MUSCULOSKELETAL: Muscle strength and tone normal. SPINE: No scoliosis or deformity SKIN: No rashes CENTRAL NERVOUS SYSTEM: Alert and oriented -3. No focal deficits, tone is normal in all 4 extremities. PSYCHIATRIC: Alert and oriented -3. Appropriate affect. Intact judgment and insight. - Labs CBC & Chem 7: 10/01/17 07:17 10/01/17 07:17 Labs: Abnormal Lab Results - Last 24 Hours (Table) 09/30/17 09/30/17 10/01/17 Range/Units 16:30 20:51 07:17 WBC 14.4 H (3.8-10.6) k/uL RBC 3.67 L (3.80-5.40) m/uL MCV 108.7 H (80.0-100.0) fL MCH 36.2 H (25.0-35.0) pg Neutrophils # 13.0 H (1.3-7.7) k/uL Lymphocytes # 0.5 L (1.0-4.8) k/uL Sodium (137-145) mmol/L Chloride (98-107) mmol/L Carbon Dioxide (22-30) mmol/L BUN (7-17) mg/dL POC Glucose (mg/dL) 122 H 181 H (75-99) mg/dL 10/01/17 10/01/17 10/01/17 Range/Units 07:17 07:55 11:20 WBC (3.8-10.6) k/uL RBC (3.80-5.40) m/uL MCV (80.0-100.0) fL MCH (25.0-35.0) pg Neutrophils # (1.3-7.7) k/uL Lymphocytes # (1.0-4.8) k/uL Sodium 136 L (137-145) mmol/L Chloride 92 L (98-107) mmol/L Carbon Dioxide 39 H (22-30) mmol/L BUN 21 H (7-17) mg/dL POC Glucose (mg/dL) 113 H 106 H (75-99) mg/dL Assessment and Plan Plan: Assessment: Hypoxemic respiratory failure secondary to community-acquired pneumonia Previous history of ventilator dependence and respiratory failure secondary to bilateral multilobar pneumonia and influenza A, 2015 History of chronic tobacco dependence with possible COPD Fibromyalgia Hypertension Anxiety Chronic pain syndrome Chronic sinus disease Plan: Patient complains of being dyspneic with exertion, being limited in terms of activity tolerance, chest congestion, unable to bring up any sputum. Did have an hour long episode of substernal crushing chest pain this morning, which subsided with penetration Xanax. We'll obtain twelve-lead EKG, troponins and cardiac enzymes. We'll continue with current plan of care, and antibiotic coverage with oral Levaquin, Diflucan. Continue DuoNeb nebulized treatments, we will add Pulmicort and Perforomist. Continue high-dose Solu-Medrol 60 mg every 6 hours. Chest x-ray from yesterday has been reviewed, right lower lobe infiltrate persists, with mild vascular congestion. Patient continues on oral Lasix. Denies any fever, or chills. No febrile episodes, patient is hemodynamically stable. We'll obtain repeat chest x-ray in the morning, if there is worsening noted on the chest x-ray, we'll proceed with a bronchoscopy and BAL at 2 PM tomorrow on 10/02/[address] Vaughn. This was discussed with the patient, and she is agreement with the plan I performed a history & physical examination of the patient and discussed their management with my nurse practitioner, Sylvia Li. I reviewed the nurse practitioner's note and agree with the documented findings and plan of care. Lung sounds are positive for scattered rhonchi bilaterally. The findings and the impression was discussed with the patient. I attest to the documentation by the nurse practitioner. Time with Patient: Less than 30
[2017-10-01 12:50] LABS: Creatine Kinase 27 U/L (30-135)
[2017-10-01] MEDS: FOLIC ACID 1 MG TAB PO SCH (13:00)
[2017-10-01] MEDS: CHOLECALCIFEROL 1,000 UNIT TAB PO SCH (13:00)
[2017-10-01 13:02] LABS: Creatine Kinase MB 1.7 ng/mL (0.0-2.4); Troponin I <0.012 ng/mL (0.000-0.034)
[2017-10-01 17:28] LABS: Glucose,Whole Blood 190 mg/dL (75-99)
[2017-10-01] MEDS: LEVOFLOXACIN 750 MG TAB PO SCH (18:13)
[2017-10-01] MEDS: SODIUM CHLORIDE 0.9% 1,000 ML IV SCH (18:14)
[2017-10-01] MEDS: Acetaminophen-Codeine 300-30mg TAB PO PRN ×2 (18:21→23:01)
--- NOTE | 2017-10-01 19:46 | P.PN ---
Subjective Progress Note Date: 10/01/17 Progress note being dictated for Dr. farr Interval history:57-year-old female admitted for cerebral exacerbation and atypical pneumonia patient is still wheezing with rhonchus breath sounds and pulmonology his considering bronchoscopy patient is on levofloxacin at this point of time patient is on 3 L of onset doesn't wear any oxygen at home. Having cough with significant amount of sputum production. 09/29/2017 Patient was pretty status improved patient wheezing improved compared to yesterday. 09/30/2017 Patient feels run down, respiratory exam is worse chest x-ray showing increased infiltrate. Constitutional: Denied any fatigue denied any fever. Cardio vascular: denied any chest pain, palpitations Gastrointestinal denied any nausea vomiting Pulmonary: As mentioned in the interval history Neurologic denied any new focal deficits 10/01/2017 reports chest pain earlier this morning, awoke her out of sleep , crushing midsternal, nonradiating, lasting an hour , relieved with Xanax .12- lead EKG and serial troponins ordered .maintained on nebulized bronchodilators, steroids, antibiotics.Reports no improvement in breathing with loose, congested , nonproductive cough. Maintaining O2 sats of mid 90s on 2 L nasal cannula. Afebrile. Objective - Vital Signs Vital signs: Vital Signs Temp 98.3 F 10/01/17 15:00 Pulse 84 10/01/17 16:28 Resp 18 10/01/17 15:00 BP 142/69 10/01/17 15:00 Pulse Ox 93 L 10/01/17 15:00 Intake & Output 10/01/17 10/01/17 10/02/17 06:59 18:59 06:59 Intake Total 300 Output Total 1350 800 Balance -1350 -800 300 Weight 52 kg Intake: Oral 300 Output: Urine 1350 800 Other: Voiding Method Toilet Toilet - Exam GENERAL: The patient is sitting up in bed, alert and oriented x3, no acute distress. Well developed, well nourished. HEENT: Pupils are round and equally reacting to light. EOMI. No scleral icterus. No conjunctival pallor. Normocephalic, atraumatic. CARDIOVASCULAR: S1 and S2 present. No murmurs, rubs, or gallops. PULMONARY: Diminished, scattered rhonchi,bilateral expiratory wheezing and fine bilateral crackles ABDOMEN: Soft, nontender, nondistended, normoactive bowel sounds. No palpable organomegaly. MUSCULOSKELETAL: No joint swelling or deformity. EXTREMITIES: No cyanosis, clubbing, or pedal edema. NEUROLOGICAL: Gross neurological examination did not reveal any focal deficits. SKIN: No rashes. - Labs CBC & Chem 7: 10/01/17 07:17 10/01/17 07:17 Labs: Abnormal Lab Results - Last 24 Hours (Table) 09/30/17 10/01/17 10/01/17 Range/Units 20:51 07:17 07:17 WBC 14.4 H (3.8-10.6) k/uL RBC 3.67 L (3.80-5.40) m/uL MCV 108.7 H (80.0-100.0) fL MCH 36.2 H (25.0-35.0) pg Neutrophils # 13.0 H (1.3-7.7) k/uL Lymphocytes # 0.5 L (1.0-4.8) k/uL Sodium 136 L (137-145) mmol/L Chloride 92 L (98-107) mmol/L Carbon Dioxide 39 H (22-30) mmol/L BUN 21 H (7-17) mg/dL POC Glucose (mg/dL) 181 H (75-99) mg/dL Total Creatine Kinase (30-135) U/L 10/01/17 10/01/17 10/01/17 Range/Units 07:55 11:20 12:14 WBC (3.8-10.6) k/uL RBC (3.80-5.40) m/uL MCV (80.0-100.0) fL MCH (25.0-35.0) pg Neutrophils # (1.3-7.7) k/uL Lymphocytes # (1.0-4.8) k/uL Sodium (137-145) mmol/L Chloride (98-107) mmol/L Carbon Dioxide (22-30) mmol/L BUN (7-17) mg/dL POC Glucose (mg/dL) 113 H 106 H (75-99) mg/dL Total Creatine Kinase 27 L (30-135) U/L 10/01/17 Range/Units 17:23 WBC (3.8-10.6) k/uL RBC (3.80-5.40) m/uL MCV (80.0-100.0) fL MCH (25.0-35.0) pg Neutrophils # (1.3-7.7) k/uL Lymphocytes # (1.0-4.8) k/uL Sodium (137-145) mmol/L Chloride (98-107) mmol/L Carbon Dioxide (22-30) mmol/L BUN (7-17) mg/dL POC Glucose (mg/dL) 190 H (75-99) mg/dL Total Creatine Kinase (30-135) U/L Assessment and Plan Assessment: - Acute hypoxic and hypercapnic respiratory failure secondary to community- acquired pneumonia. Some concern regarding atypical pneumonia with pneumonitis based on her exposure to exotic birds and bird droppings. Patient is presently on levofloxacin, continue with systemic steroids inhalational treatments further plan depending on pulmonology evaluation -COPD with acute exacerbation -Fibromyalgia. - Hypertension. -Anxiety. - Chronic pain syndrome. Plan: Continue on current medication regime ,monitoring and symptomatic treatment. Follow-up chest x-ray in a.m. with potential bronchoscopy if worsening as per pulmonary. Maintain nebulized bronchodilators, high-dose IV steroids, antibiotics. The impression and plan of care has been dictated as directed. : I performed a history and examination of this patient, discussed the same with the dictator. I agree with the dictator's note ,documented as a scribe. Any additional findings or plans will be noted.
[2017-10-01] MEDS: BUDESONIDE 1 MG/2 ML NEBU INHALATION SCH (20:22)
[2017-10-01 20:35] LABS: Glucose,Whole Blood 184 mg/dL (75-99)
[2017-10-01] MEDS: FORMOTEROL FUMARATE 20 MCG/2 ML NEBU INHALATION SCH (20:49)
[2017-10-01] MEDS: SENNOSIDES-DOCUSATE SODIUM 1 EACH TAB PO SCH (23:00)
[2017-10-01] MEDS: ALPRAZolam 1 MG TAB PO SCH (23:00)
[2017-10-01] MEDS: MELATONIN 5 MG TABLET PO SCH (23:01)
[2017-10-01] MEDS: NEBIVOLOL 5 MG TAB PO SCH (23:01)
[2017-10-01] MEDS: ZOLPIDEM 10 MG TAB PO SCH (23:01)
[2017-10-01] MEDS: amLODIPine 2.5 MG TAB PO SCH (23:03)
[2017-10-02] MEDS ORDERED: NITROGLYCERIN SL TABS 0.4 MG TAB SUBLINGUAL PRN (00:32)
[2017-10-02 01:57] LABS: Creatine Kinase 29 U/L (30-135)
[2017-10-02] MEDS: oxyCODONE-APAP 10-325MG 1 EACH TAB PO PRN ×4 (02:05→20:33)
[2017-10-02 02:10] LABS: Creatine Kinase MB 1.5 ng/mL (0.0-2.4); Troponin I <0.012 ng/mL (0.000-0.034)
[2017-10-02] MEDS: IPRATROPIUM-ALBUTEROL 3 ML NEB INHALATION SCH ×5 (05:34→20:28)
[2017-10-02] MEDS: methylPREDNISolone SOD SUCCI 125 MG/2 ML VIAL IV SCH ×4 (06:22→23:18)
[2017-10-02] MEDS: LEVOTHYROXINE 50 MCG TAB PO SCH (06:22)
[2017-10-02] MEDS: Acetaminophen-Codeine 300-30mg TAB PO PRN ×4 (06:22→23:28)
[2017-10-02 07:05] LABS: Glucose,Whole Blood 103 mg/dL (75-99)
[2017-10-02] MEDS: INSULIN ASPART 100 UNIT/ML 1 ML 10 ML VIAL SQ SCH ×4 (07:06→22:27)
[2017-10-02] MEDS: BUDESONIDE 1 MG/2 ML NEBU INHALATION SCH ×2 (07:59→20:28)
[2017-10-02] MEDS: BACLOFEN 10 MG TAB PO SCH ×3 (08:00→23:14)
[2017-10-02] MEDS: PANTOPRAZOLE 40 MG TABLET PO SCH ×2 (08:01→18:03)
[2017-10-02] MEDS: guaiFENesin 600 MG TABLET.ER PO SCH ×2 (08:01→23:13)
[2017-10-02] MEDS: cycloSPORINE 0.05% OPHTH 0.4 ML DROPERETTE BOTH EYES SCH ×2 (08:02→23:12)
[2017-10-02] MEDS: valACYclovir HCL 1,000 MG TABLET PO SCH (08:02)
[2017-10-02] MEDS: HEPARIN SODIUM,PORCINE 5,000 UNIT/ML 1 ML VIAL SQ SCH ×2 (08:02→23:14)
[2017-10-02] MEDS: GABAPENTIN 100 MG CAP PO SCH ×3 (08:02→23:12)
[2017-10-02] MEDS: FUROSEMIDE 20 MG TAB PO SCH (08:02)
[2017-10-02] MEDS: FERROUS SULFATE 325 MG TAB PO SCH (08:03)
[2017-10-02] MEDS: NYSTATIN 100,000 UNIT/ML SUSP 500,000 UNIT/5 ML CUP PO SCH ×5 (08:04→23:52)
[2017-10-02] MEDS: FLUCONAZOLE 100 MG TAB PO SCH (08:04)
[2017-10-02] MEDS: PYRIDOXINE 50 MG TAB PO SCH (08:04)
[2017-10-02] MEDS: ALPRAZolam 0.5 MG TAB PO SCH ×2 (08:07→18:01)
[2017-10-02] MEDS: FORMOTEROL FUMARATE 20 MCG/2 ML NEBU INHALATION SCH ×2 (08:12→20:28)
[2017-10-02] MEDS: CALCIUM CARB-MAG CARB-FOLIC 1 EACH TAB PO SCH ×2 (08:21→23:12)
[2017-10-02] MEDS: amLODIPine 5 MG TAB PO SCH (08:21)
--- NOTE | 2017-10-02 08:37 | XR ---
EXAMINATION TYPE: XR chest 2V DATE OF EXAM: 10/02/2017 COMPARISON: 09/30/2017 HISTORY: Pneumonia. Progress exam. TECHNIQUE: Frontal and lateral views of the chest are obtained. FINDINGS: There is interval improvement of the previously seen right lower lobe reticular opacity. M ild cephalization is unchanged. Pulmonary hyperinflation likely relates underlying COPD. Mild degener ative changes of the thoracic spine are again noted. Cardiac silhouette is upper limits of normal. IMPRESSION: Interval improvement of the right lower lobe reticular opacity with persistent mild pulm onary vascular congestion and findings again suggestive of underlying COPD.
[2017-10-02] MEDS: CHOLECALCIFEROL 1,000 UNIT TAB PO SCH (10:45)
[2017-10-02] MEDS: FOLIC ACID 1 MG TAB PO SCH (10:45)
[2017-10-02 11:29] LABS: Glucose,Whole Blood 90 mg/dL (75-99)
[2017-10-02] MEDS ORDERED: SODIUM CHLORIDE 0.9% 1,000 ML IV ONE (12:00)
[2017-10-02] MEDS ORDERED: LIDOCAINE 1% INJ 10MG/ML (20 ML MDV) ONE (12:04)
[2017-10-02] MEDS ORDERED: PROPOFOL 10 MG/ML 20 ML VIAL IV ONE (12:04)
[2017-10-02] MEDS ORDERED: LIDOCAINE 2% INJ 20 MG/ML INTRATRACH ONE (12:16)
--- NOTE | 2017-10-02 15:16 | P.PN ---
Subjective Progress Note Date: 10/02/17 Principal diagnosis: Acute hypoxic respiratory failure secondary to community-acquired pneumonia This is a very pleasant 56-year-old female patient who follows with Dr. Landa as her primary care physician. She has a history of fibromyalgia, hypertension , recurrent sinusitis, chronic constipation, ventilatory dependent respiratory failure secondary to bilateral pneumonia and influenza A infection in July 2014, TIA. She presented here yesterday with complaints of increasing shortness of breath, cough and congestion. Productive sputum of yellowish reynaga. Fever chills and night sweats. She was treated in the outpatient setting with Levaquin. No significant improvement. She states she had been up visiting her father in [place] who has many exotic birds. She states the cages are not that clean and she usually does have some upper respiratory issues after visiting him. He also is a heavy smoker. She herself is a previous smoker. Her chest x-ray reveals some patchy infiltrates throughout the lungs right greater than left. Possible pneumonia versus atypical infection and interstitial pneumonitis. White count 8.6. Hemoglobin 13.1. ProBNP 5020. Influenza screen is negative. She is seen today in consultation on the selective care unit. She is awake and alert in no acute distress. She does have a loose nonproductive cough currently. Maintaining O2 saturations in the 90s on 4 L/m per nasal cannula. She is afebrile. Hemodynamically stable. His been initiated on IV Levaquin. The patient has multiple ALLERGIES to most antibiotics. She is also on IV Solu-Medrol, IV Lasix and bronchodilators. Patient was reevaluated today on 09/25/2017, seems to be doing much better, breathing easier, less cough, less wheezing, less shortness of breath. No fever in the last 24 hours, her vital signs are stable. O2 saturation is 97% on 3 L nasal cannula. No labs were done today except for blood sugar 129. Chest x-ray from today was reviewed, and contrary to what the radiologist feels , I feel the chest x-ray is improving, not to mention the patient is also clinically improve. Reevaluated today on 09/26/2017, patient is feeling better, breathing easier, less cough and less wheezing less shortness of breath. Patient is tolerating treatment well, and at this point I feel the patient could be considered for discharge planning in the next 24 hours. Reevaluated today on 09/27/2017, for some reason the patient is much worse today compared to yesterday. More cough, more wheezing, and more shortness of breath noted today. Chest x-ray is showing definite improvement compared to the admission chest x-ray. I reviewed the chest x-ray, there is definite improvement in the patchy infiltrates in the upper lobes, continues to have significant infiltrates in the lower lobes. Clinically, the patient seems to be getting worse. Reevaluated today on 09/28/2017, patient continues to have cough wheezing shortness of breath, continues to have diffuse rhonchi and wheezes bilaterally. Clearly not ready for any discharge planning at this point, I have switched her back from prednisone to Solu-Medrol since this was changed earlier by the admitting physician. Patient is not clearly ready to be switched to oral prednisone. Considering her clinical findings needs to remain on Solu-Medrol at relatively high dose. I have also added a touch of diuresis since her initial chest x-ray did show some component of interstitial edema. Follow-up chest x-ray did show improvement, but not significant. Reevaluated today on 09/29/2017, slight improvement but continues to have intermittent cough wheezing shortness of breath. Labs were reviewed, patient had a relatively normal basic metabolic profile. Her electrolytes were noted at her bicarb is 43 speaks in favor of significant COPD and chronic compensatory metabolic acidosis. Her last chest x-ray showed some improvement, patient would have another chest x-ray done tomorrow and decide whether the patient could be discharged home or could even require bronchoscopy. This is a 57-year-old female with history of acute hypoxemic respiratory failure secondary to community-acquired pneumonia. In addition, the patient has a history of previous ventilator dependent secondary to bilateral multilobar pneumonia and influenza A and 2015 chronic tobacco dependence 5 around hypertension anxiety chronic pain syndrome chronic sinus disease. The patient has been in the hospital for about 7 days. States that her breathing is much improved. As a bit of a cough. Not producing any phlegm. No fever or chills. No chest pain or chest discomfort. No nausea vomiting or diarrhea. Chest x-ray shows mild fluid overload or some infiltrate at the right lung base. On 10/01/2017 patient seen in follow-up on medical surgical floor. She remains congested, not able to produce any sputum. Remains dyspneic, she states there has not been significant improvement in her respiratory status. Lung sounds are positive for coarse scattered rhonchi bilaterally, she remains on 2 L per nasal cannula with O2 sat 94%. She is afebrile, hemodynamically stable. Yesterday's chest x-ray was reviewed with Dr. Vaughn today. Right lower lung opacity persists, with mild vascular congestioN. Patient has been on Solu- Medrol 60 mg every 6 hours, Valtrex, oral Levaquin, Diflucan, nebulized treatments. We will add Pulmicort and Perforomist. She states she had an episode of substernal crushing chest pain this morning 10 out of 10, at rest, that lasted approximately 1 hour. Her chest pain subsided after administration of oral Xanax. We'll obtain 12 the EKG, a set of cardiac enzymes and troponins today. On 10/02/2017 patient seen in follow-up. She remains wheezy, and congested. She has been maximized on medical treatment, with IV steroids, antibiotics, nebulized treatments. Not able to produce any sputum. She did have another short episode of substernal chest pain this morning, that lasted less than 5 minutes that was not brought on by any exertion. Patient thinks this may be related to her pneumonia. Troponins were negative 5. Patient was seen in consultation by cardiology this admission, and patient's atypical chest discomfort was thought to be related to her pneumonia. Patient will be undergoing bronchoscopy by Dr. Vaughn this afternoon Objective - Vital Signs Vital signs: Vital Signs Temp 98.1 F 10/02/17 00:27 Pulse 80 10/02/17 11:29 Resp 16 10/02/17 08:00 BP 136/70 10/02/17 07:00 Pulse Ox 94 L 10/02/17 07:00 Intake & Output 10/01/17 10/02/17 10/02/17 18:59 06:59 18:59 Intake Total 300 100 Output Total 800 1450 Balance -800 -1150 100 Weight 53.5 kg Intake: IV 100 Oral 300 Output: Urine 800 1450 Other: Voiding Method Toilet Toilet Toilet # Voids 2 - Exam GENERAL EXAM: Alert, 57-year-old thin white female, comfortable in no apparent distress. HEAD: Normocephalic/atraumatic. EYES: Normal reaction of pupils, equal size. Conjunctiva pink, sclera white. NOSE: Clear with pink turbinates. THROAT: No erythema or exudates. NECK: No masses, no JVD, no thyroid enlargement, no adenopathy. CHEST: No chest wall deformity. Symmetrical expansion. LUNGS: Equal air entry with scattered rhonchi and wheezes bilaterally CVS: Regular rate and rhythm, normal S1 and S2, no gallops, no murmurs, no rubs ABDOMEN: Soft, nontender. No hepatosplenomegaly, normal bowel sounds, no guarding or rigidity. EXTREMITIES: No clubbing, no edema, no cyanosis, 2+ pulses and upper and lower extremities. MUSCULOSKELETAL: Muscle strength and tone normal. SPINE: No scoliosis or deformity SKIN: No rashes CENTRAL NERVOUS SYSTEM: Alert and oriented -3. No focal deficits, tone is normal in all 4 extremities. PSYCHIATRIC: Alert and oriented -3. Appropriate affect. Intact judgment and insight. - Labs CBC & Chem 7: 10/01/17 07:17 10/01/17 07:17 Labs: Abnormal Lab Results - Last 24 Hours (Table) 10/01/17 10/01/17 10/02/17 Range/Units 17:23 20:16 01:00 POC Glucose (mg/dL) 190 H 184 H (75-99) mg/dL Total Creatine Kinase 29 L (30-135) U/L 10/02/17 Range/Units 07:03 POC Glucose (mg/dL) 103 H (75-99) mg/dL Total Creatine Kinase (30-135) U/L Assessment and Plan Plan: Assessment: Hypoxemic respiratory failure secondary to community-acquired pneumonia Previous history of ventilator dependence and respiratory failure secondary to bilateral multilobar pneumonia and influenza A, 2015 History of chronic tobacco dependence with possible COPD Fibromyalgia Hypertension Anxiety Chronic pain syndrome Chronic sinus disease Plan: Continue current medical treatment, will proceed with bronchoscopy with BAL by Dr. Vaughn this afternoon. Continue current antibiotic coverage, neb last treatments and IV steroids. I performed a history & physical examination of the patient and discussed their management with my nurse practitioner, Sylvia Li. I reviewed the nurse practitioner's note and agree with the documented findings and plan of care. Lung sounds are positive for scattered rhonchi bilaterally. The findings and the impression was discussed with the patient. I attest to the documentation by the nurse practitioner. Time with Patient: Less than 30
--- NOTE | 2017-10-02 15:45 | CDI ---
Last Revision, June 2017 Documentation Clarification Form Date: 10/02/17 From: Luz Vega RN, CCDS Admit Date: 09/23/2017 5:25:00 PM Patient Name: Vicky Quezada Visit Number: [id number] Discharge Date: ATTENTION: The Clinical Documentation Specialists (CDI) and [facility] Coding Staff appreciate your assistance in clarifying documentation. Please respond to the clarification below the line at the bottom and electronically sign. The CDI & [facility] staff will review the response and follow-up if needed. Please note: Queries are made part of the Legal Health Record. If you have any questions, please contact the author of this message via ITS. Dr. Kari Titus/Porsha Esparza GANG INVESTIGATORAlex ER evaluation: There is patchy infiltrates noted. This is consistent with CHF however due to the fever pneumonia not ruled out. History/Risk Factors: Hypertension, Former smoker , Pneumonia, Clinical Indicators: Present with complaints of increasing shortness of breath , cough and congestion. On Admission: VS/Pulse OX: 98/55 101 24 102.1, 93 % 2/L NC BNP: 5020 Echocardiogram Results: EF55-60 % Chest X Ray: 09/25/17 Interstitial and some patchy airspace disease bilateral lungs. Correlate for possible etiologies including interstitial edema, interstitial pneumonitis and infection including atypical pneumonias. Chest X-ray: 10/02/17 Interval improvement of right lower lobe reticular opacity with persistent mild pulmonary vascular congestion and findings again suggestive of underlying COPD. Treatment: IV Lasix (now PO) Bronchodilators Solu-Medrol IV Monitor O2 Sat's (titrate) In your professional opinion, can you please clarify the acuity and type of CHF if known? Systolic Heart Failure: Acute Chronic Acute on Chronic Diastolic Heart Failure: Acute Chronic Acute on Chronic Systolic & Diastolic Heart Failure: Acute Chronic Acute on Chronic Heart Failure Was CHF Ruled out? Unable to Determine Other, please specify Please continue to document in your progress notes and discharge summary in order to capture severity of illness and risk of mortality. Include clinical findings that support your diagnosis. MTDD
[2017-10-02 17:00] LABS: Glucose,Whole Blood 196 mg/dL (75-99)
--- NOTE | 2017-10-02 17:53 | P.PN ---
Subjective Progress Note Date: 10/02/17 Progress note being dictated for Dr. farr Interval history:57-year-old female admitted for cerebral exacerbation and atypical pneumonia patient is still wheezing with rhonchus breath sounds and pulmonology his considering bronchoscopy patient is on levofloxacin at this point of time patient is on 3 L of onset doesn't wear any oxygen at home. Having cough with significant amount of sputum production. 09/29/2017 Patient was pretty status improved patient wheezing improved compared to yesterday. 09/30/2017 Patient feels run down, respiratory exam is worse chest x-ray showing increased infiltrate. Constitutional: Denied any fatigue denied any fever. Cardio vascular: denied any chest pain, palpitations Gastrointestinal denied any nausea vomiting Pulmonary: As mentioned in the interval history Neurologic denied any new focal deficits 10/01/2017 reports chest pain earlier this morning, awoke her out of sleep , crushing midsternal, nonradiating, lasting an hour , relieved with Xanax .12- lead EKG and serial troponins ordered .maintained on nebulized bronchodilators, steroids, antibiotics.Reports no improvement in breathing with loose, congested , nonproductive cough. Maintaining O2 sats of mid 90s on 2 L nasal cannula. Afebrile. 10/02/2017 maintained on nebulized bronchodilators and antibiotics, IV steroids , breathing unchanged with nonproductive cough. Reports never episode of chest pain this morning, lasting about 5 minutes. Troponin is negative. Objective - Vital Signs Vital signs: Vital Signs Temp 98.5 F 10/02/17 15:00 Pulse 76 10/02/17 16:59 Resp 16 10/02/17 16:00 BP 128/61 10/02/17 15:00 Pulse Ox 97 10/02/17 16:43 Intake & Output 10/01/17 10/02/17 10/02/17 18:59 06:59 18:59 Intake Total 300 600 Output Total 800 1450 800 Balance -800 -1150 -200 Weight 53.5 kg Intake: IV 100 Oral 300 500 Output: Urine 800 1450 800 Other: Voiding Method Toilet Toilet Toilet # Voids 2 - Exam GENERAL: The patient is sitting up in bed, alert and oriented x3, no acute distress. Well developed, well nourished. HEENT: Pupils are round and equally reacting to light. EOMI. No scleral icterus. No conjunctival pallor. CARDIOVASCULAR: S1 and S2 present. No murmurs, rubs, or gallops. PULMONARY: Diminished, scattered rhonchi,bilateral expiratory wheezing and fine bilateral crackles ABDOMEN: Soft, nontender, nondistended, normoactive bowel sounds. No palpable organomegaly. MUSCULOSKELETAL: No joint swelling or deformity. EXTREMITIES: No cyanosis, clubbing, or pedal edema. NEUROLOGICAL: Gross neurological examination did not reveal any focal deficits. SKIN: No rashes. - Labs CBC & Chem 7: 10/01/17 07:17 10/01/17 07:17 Labs: Abnormal Lab Results - Last 24 Hours (Table) 10/01/17 10/02/17 10/02/17 Range/Units 20:16 01:00 07:03 POC Glucose (mg/dL) 184 H 103 H (75-99) mg/dL Total Creatine Kinase 29 L (30-135) U/L 10/02/17 Range/Units 16:59 POC Glucose (mg/dL) 196 H (75-99) mg/dL Total Creatine Kinase (30-135) U/L Assessment and Plan Assessment: - Acute hypoxic and hypercapnic respiratory failure secondary to community- acquired pneumonia. Some concern regarding atypical pneumonia with pneumonitis based on her exposure to exotic birds and bird droppings. Patient is presently on levofloxacin, continue with systemic steroids inhalational treatments further plan depending on pulmonology evaluation -COPD with acute exacerbation -Fibromyalgia. - Hypertension. -Anxiety. - Chronic pain syndrome. Plan: Continue on current medication regime ,monitoring and symptomatic treatment. Bronchoscopy pending. Maintain nebulized bronchodilators, high- dose IV steroids, antibiotics. Staff advised to notify cardiology as patient continues to have chest pain. Further recommendations to follow. The impression and plan of care has been dictated as directed. : I performed a history and examination of this patient, discussed the same with the dictator. I agree with the dictator's note ,documented as a scribe. Any additional findings or plans will be noted.
[2017-10-02] MEDS: LEVOFLOXACIN 750 MG TAB PO SCH (18:03)
[2017-10-02] MEDS: SODIUM CHLORIDE 0.9% 1,000 ML IV SCH (18:07)
[2017-10-02 18:32] LABS: Appearance,BF Cloudy; Color,BF Colorless; Nucleated Cells, Body Fluid 290 /uL; RBC, Body Fluid 300 /uL
[2017-10-02 18:41] LABS: Mononuclear WBC,Body Fluid 35 %; Polynuclear WBC,Body Fluid 65 %; Total Cells Counted,Body Fluid 100
[2017-10-02 20:09] LABS: Glucose,Whole Blood 105 mg/dL (75-99)
--- NOTE | 2017-10-02 20:15 | PCN ---
PROCEDURE NOTE PROCEDURE: Bronchoscopy, airway examination, therapeutic lavage, BAL right middle lobe. PREOPERATIVE DIAGNOSIS: Pneumonia. POSTOPERATIVE DIAGNOSIS: Pneumonia. There was informed consent. There was universal timeout. The procedure took place in room #2 [facility]. ANESTHESIA: There was general anesthesia/conscious sedation provided by CHEMICAL RECOVERY OPERATOR. The patient was done by Dr. Vaughn and Dr. Schulz. PROCEDURE DESCRIPTION: After the patient was adequately sedated and being fully monitored, the bronchoscope was inserted through the right nostril. It passed through the right nasopharynx into the oropharynx. We then went to the hypopharynx. The hypopharyngeal structures, including anterior commissure, true cords, false cords, arytenoids, piriform sinuses, right and left valleculae, all appeared normal. After topicalization, the bronchoscope was pushed through the glottic opening into the trachea. Trachea appeared normal. There were some thick secretions noted within the trachea. They were suctioned. Tracheal chandler was sharp. Next, there was topicalization of the right and left mainstem. The right upper lobe and its 3 segments, the right middle lobe and its 2 segments, the right lower lobe and its 5 segments, left upper lobe proper and its 2 segments, lingula and its 2 segments, and left lower lobe and its 4 segments all had similar findings of mild to moderate diffuse bronchitis. There were thick secretions noted throughout. They were suctioned with some difficulty. The airways were cleansed. There was no dominant mass or tumor. After the secretions were suctioned, the bronchoscope was wedged into the right middle lobe. Saline was instilled and 30 mL was returned. The patient tolerated the procedure well. The bronchoscope was withdrawn. The patient will be recovered and sent back to her room. The specimens were sent to the laboratory for analysis. There was no immediate complication. MMODL / IJN: [id number] /
[2017-10-02 22:54] VITALS: RESP 18
[2017-10-02] MEDS: SENNOSIDES-DOCUSATE SODIUM 1 EACH TAB PO SCH (23:11)
[2017-10-02] MEDS: ALPRAZolam 1 MG TAB PO SCH (23:11)
[2017-10-02] MEDS: NEBIVOLOL 5 MG TAB PO SCH (23:12)
[2017-10-02] MEDS: ZOLPIDEM 10 MG TAB PO SCH (23:12)
[2017-10-02] MEDS: MELATONIN 5 MG TABLET PO SCH (23:12)
[2017-10-02] MEDS: amLODIPine 2.5 MG TAB PO SCH (23:12)
[2017-10-02] MEDS: ONDANSETRON 4 MG/2 ML VIAL IVP PRN (23:28)
[2017-10-03] MEDS: IPRATROPIUM-ALBUTEROL 3 ML NEB INHALATION SCH ×4 (00:34→11:58)
[2017-10-03] MEDS: oxyCODONE-APAP 10-325MG 1 EACH TAB PO PRN ×3 (02:54→13:49)
[2017-10-03] MEDS: Acetaminophen-Codeine 300-30mg TAB PO PRN ×3 (05:18→13:02)
[2017-10-03] MEDS: methylPREDNISolone SOD SUCCI 125 MG/2 ML VIAL IV SCH ×2 (06:08→11:44)
[2017-10-03] MEDS: LEVOTHYROXINE 50 MCG TAB PO SCH (06:08)
[2017-10-03 07:04] LABS: Glucose,Whole Blood 138 mg/dL (75-99)
[2017-10-03] MEDS: INSULIN ASPART 100 UNIT/ML 1 ML 10 ML VIAL SQ SCH ×2 (07:16→11:45)
[2017-10-03] MEDS: ALPRAZolam 0.5 MG TAB PO SCH (07:16)
[2017-10-03] MEDS: BACLOFEN 10 MG TAB PO SCH (07:17)
[2017-10-03] MEDS: PANTOPRAZOLE 40 MG TABLET PO SCH (07:17)
[2017-10-03] MEDS: amLODIPine 5 MG TAB PO SCH (07:18)
[2017-10-03] MEDS: HEPARIN SODIUM,PORCINE 5,000 UNIT/ML 1 ML VIAL SQ SCH (07:19)
[2017-10-03] MEDS: NYSTATIN 100,000 UNIT/ML SUSP 500,000 UNIT/5 ML CUP PO SCH ×2 (07:19→13:04)
[2017-10-03] MEDS: PYRIDOXINE 50 MG TAB PO SCH (07:19)
[2017-10-03] MEDS: valACYclovir HCL 1,000 MG TABLET PO SCH (07:20)
[2017-10-03] MEDS: CALCIUM CARB-MAG CARB-FOLIC 1 EACH TAB PO SCH (07:22)
[2017-10-03] MEDS: FERROUS SULFATE 325 MG TAB PO SCH (07:23)
[2017-10-03] MEDS: FLUCONAZOLE 100 MG TAB PO SCH (07:23)
[2017-10-03] MEDS: FUROSEMIDE 20 MG TAB PO SCH (07:23)
[2017-10-03] MEDS: GABAPENTIN 100 MG CAP PO SCH (07:24)
[2017-10-03] MEDS: guaiFENesin 600 MG TABLET.ER PO SCH (07:24)
[2017-10-03 07:29] LABS: Basophils % (A) 0 %; Eosinophils % (A) 0 %; HCT 40.3 % (34.0-46.0); HGB 13.2 gm/dL (11.4-16.0); Lymphocytes # (A) 0.4 k/uL (1.0-4.8); Lymphocytes % (A) 4 %; MCH 35.8 pg (25.0-35.0); MCHC 32.9 g/dL (31.0-37.0); MCV 108.8 fL (80.0-100.0); Macrocytosis Moderate; Mean Platelet Volume 6.9; Monocytes # (A) 0.5 k/uL (0-1.0); Monocytes % (A) 5 %; Neutrophils # (A) 8.8 k/uL (1.3-7.7); Neutrophils % (A) 90 %; Platelet Count 338 k/uL (150-450); RDW 12.4 % (11.5-15.5); WBC 9.9 k/uL (3.8-10.6)
[2017-10-03 07:55] LABS: Anion Gap 8 mmol/L; Blood Urea Nitrogen 23 mg/dL (7-17); Calcium 8.1 mg/dL (8.4-10.2); Carbon Dioxide 34 mmol/L (22-30); Chloride 93 mmol/L (98-107); Glucose 143 mg/dL (74-99); Magnesium 1.8 mg/dL (1.6-2.3); Potassium 3.6 mmol/L (3.5-5.1); Sodium 135 mmol/L (137-145)
[2017-10-03] MEDS: cycloSPORINE 0.05% OPHTH 0.4 ML DROPERETTE BOTH EYES SCH (08:17)
[2017-10-03] MEDS: ONDANSETRON 4 MG TAB PO PRN (08:17)
[2017-10-03] MEDS: BUDESONIDE 1 MG/2 ML NEBU INHALATION SCH (08:22)
[2017-10-03] MEDS: FORMOTEROL FUMARATE 20 MCG/2 ML NEBU INHALATION SCH (08:22)
[2017-10-03 08:39] VITALS: BP 134/65; TEMP 97.5
[2017-10-03 08:49] VITALS: PULSE 84
[2017-10-03 11:08] LABS: Glucose,Whole Blood 138 mg/dL (75-99)
[2017-10-03] MEDS: CHOLECALCIFEROL 1,000 UNIT TAB PO SCH (11:43)
[2017-10-03] MEDS: FOLIC ACID 1 MG TAB PO SCH (11:43)
--- NOTE | 2017-10-03 12:32 | P.PN ---
Subjective Progress Note Date: 10/03/17 Principal diagnosis: Acute hypoxic respiratory failure secondary to community-acquired pneumonia This is a very pleasant 56-year-old female patient who follows with Dr. Landa as her primary care physician. She has a history of fibromyalgia, hypertension , recurrent sinusitis, chronic constipation, ventilatory dependent respiratory failure secondary to bilateral pneumonia and influenza A infection in July 2014, TIA. She presented here yesterday with complaints of increasing shortness of breath, cough and congestion. Productive sputum of yellowish reynaga. Fever chills and night sweats. She was treated in the outpatient setting with Levaquin. No significant improvement. She states she had been up visiting her father in [place] who has many exotic birds. She states the cages are not that clean and she usually does have some upper respiratory issues after visiting him. He also is a heavy smoker. She herself is a previous smoker. Her chest x-ray reveals some patchy infiltrates throughout the lungs right greater than left. Possible pneumonia versus atypical infection and interstitial pneumonitis. White count 8.6. Hemoglobin 13.1. ProBNP 5020. Influenza screen is negative. She is seen today in consultation on the selective care unit. She is awake and alert in no acute distress. She does have a loose nonproductive cough currently. Maintaining O2 saturations in the 90s on 4 L/m per nasal cannula. She is afebrile. Hemodynamically stable. His been initiated on IV Levaquin. The patient has multiple ALLERGIES to most antibiotics. She is also on IV Solu-Medrol, IV Lasix and bronchodilators. Patient was reevaluated today on 09/25/2017, seems to be doing much better, breathing easier, less cough, less wheezing, less shortness of breath. No fever in the last 24 hours, her vital signs are stable. O2 saturation is 97% on 3 L nasal cannula. No labs were done today except for blood sugar 129. Chest x-ray from today was reviewed, and contrary to what the radiologist feels , I feel the chest x-ray is improving, not to mention the patient is also clinically improve. Reevaluated today on 09/26/2017, patient is feeling better, breathing easier, less cough and less wheezing less shortness of breath. Patient is tolerating treatment well, and at this point I feel the patient could be considered for discharge planning in the next 24 hours. Reevaluated today on 09/27/2017, for some reason the patient is much worse today compared to yesterday. More cough, more wheezing, and more shortness of breath noted today. Chest x-ray is showing definite improvement compared to the admission chest x-ray. I reviewed the chest x-ray, there is definite improvement in the patchy infiltrates in the upper lobes, continues to have significant infiltrates in the lower lobes. Clinically, the patient seems to be getting worse. Reevaluated today on 09/28/2017, patient continues to have cough wheezing shortness of breath, continues to have diffuse rhonchi and wheezes bilaterally. Clearly not ready for any discharge planning at this point, I have switched her back from prednisone to Solu-Medrol since this was changed earlier by the admitting physician. Patient is not clearly ready to be switched to oral prednisone. Considering her clinical findings needs to remain on Solu-Medrol at relatively high dose. I have also added a touch of diuresis since her initial chest x-ray did show some component of interstitial edema. Follow-up chest x-ray did show improvement, but not significant. Reevaluated today on 09/29/2017, slight improvement but continues to have intermittent cough wheezing shortness of breath. Labs were reviewed, patient had a relatively normal basic metabolic profile. Her electrolytes were noted at her bicarb is 43 speaks in favor of significant COPD and chronic compensatory metabolic acidosis. Her last chest x-ray showed some improvement, patient would have another chest x-ray done tomorrow and decide whether the patient could be discharged home or could even require bronchoscopy. This is a 57-year-old female with history of acute hypoxemic respiratory failure secondary to community-acquired pneumonia. In addition, the patient has a history of previous ventilator dependent secondary to bilateral multilobar pneumonia and influenza A and 2015 chronic tobacco dependence 5 around hypertension anxiety chronic pain syndrome chronic sinus disease. The patient has been in the hospital for about 7 days. States that her breathing is much improved. As a bit of a cough. Not producing any phlegm. No fever or chills. No chest pain or chest discomfort. No nausea vomiting or diarrhea. Chest x-ray shows mild fluid overload or some infiltrate at the right lung base. On 10/01/2017 patient seen in follow-up on medical surgical floor. She remains congested, not able to produce any sputum. Remains dyspneic, she states there has not been significant improvement in her respiratory status. Lung sounds are positive for coarse scattered rhonchi bilaterally, she remains on 2 L per nasal cannula with O2 sat 94%. She is afebrile, hemodynamically stable. Yesterday's chest x-ray was reviewed with Dr. Vaughn today. Right lower lung opacity persists, with mild vascular congestioN. Patient has been on Solu- Medrol 60 mg every 6 hours, Valtrex, oral Levaquin, Diflucan, nebulized treatments. We will add Pulmicort and Perforomist. She states she had an episode of substernal crushing chest pain this morning 10 out of 10, at rest, that lasted approximately 1 hour. Her chest pain subsided after administration of oral Xanax. We'll obtain 12 the EKG, a set of cardiac enzymes and troponins today. On 10/02/2017 patient seen in follow-up. She remains wheezy, and congested. She has been maximized on medical treatment, with IV steroids, antibiotics, nebulized treatments. Not able to produce any sputum. She did have another short episode of substernal chest pain this morning, that lasted less than 5 minutes that was not brought on by any exertion. Patient thinks this may be related to her pneumonia. Troponins were negative 5. Patient was seen in consultation by cardiology this admission, and patient's atypical chest discomfort was thought to be related to her pneumonia. Patient will be undergoing bronchoscopy by Dr. Vaughn this afternoon On 10/03/2017 patient reports breathing easier, on examination lung sounds are positive for some crackles at the bases, no wheezing noted, no rhonchi. Chest congestion is much improved. Patient will likely require home oxygen, she remains on 2 L per nasal cannula with O2 sat at 90%. Patient underwent bronchoscopy with BAL yesterday by Dr. Vaughn, bronchial washing cultures are still pending at this time, patient has been on Levaquin, IV Solu-Medrol, nebulized treatments. She said she had one episode of substernal chest discomfort this morning, which was short-lived, only a few minutes in duration. Patient will follow-up with cardiology on an outpatient basis once her pulmonary status has been stabilized. Overall she is much improved. Will increase activity today. Patient is requesting to go home today, she is stable for discharge home today. She will need to finish outpatient course of oral antibiotics for 3 more days, prednisone taper, home oxygen is being arranged, nebulized treatments in the form of DuoNeb, inhalers, Dulera. She will need to see Dr. Aguila in the office sometime next week Objective - Vital Signs Vital signs: Vital Signs Temp 97.5 F L 10/03/17 07:00 Pulse 84 10/03/17 08:48 Resp 18 10/03/17 07:00 BP 134/65 10/03/17 07:00 Pulse Ox 94 L 10/03/17 10:15 Intake & Output 10/02/17 10/03/17 10/03/17 18:59 06:59 18:59 Intake Total 600 790 Output Total 800 1050 Balance -200 -260 Weight 54 kg Intake: IV 100 Oral 500 790 Output: Urine 800 1050 Other: Voiding Method Toilet Toilet Toilet # Voids 2 # Bowel Movements 1 - Exam GENERAL EXAM: Alert, 57-year-old thin white female, comfortable in no apparent distress. HEAD: Normocephalic/atraumatic. EYES: Normal reaction of pupils, equal size. Conjunctiva pink, sclera white. NOSE: Clear with pink turbinates. THROAT: No erythema or exudates. NECK: No masses, no JVD, no thyroid enlargement, no adenopathy. CHEST: No chest wall deformity. Symmetrical expansion. LUNGS: Equal air entry with scattered rhonchi and wheezes bilaterally CVS: Regular rate and rhythm, normal S1 and S2, no gallops, no murmurs, no rubs ABDOMEN: Soft, nontender. No hepatosplenomegaly, normal bowel sounds, no guarding or rigidity. EXTREMITIES: No clubbing, no edema, no cyanosis, 2+ pulses and upper and lower extremities. MUSCULOSKELETAL: Muscle strength and tone normal. SPINE: No scoliosis or deformity SKIN: No rashes CENTRAL NERVOUS SYSTEM: Alert and oriented -3. No focal deficits, tone is normal in all 4 extremities. PSYCHIATRIC: Alert and oriented -3. Appropriate affect. Intact judgment and insight. - Labs CBC & Chem 7: 10/03/17 07:05 10/03/17 07:05 Labs: Abnormal Lab Results - Last 24 Hours (Table) 10/02/17 10/02/17 10/03/17 Range/Units 16:59 20:07 07:02 RBC (3.80-5.40) m/uL MCV (80.0-100.0) fL MCH (25.0-35.0) pg Neutrophils # (1.3-7.7) k/uL Lymphocytes # (1.0-4.8) k/uL Sodium (137-145) mmol/L Chloride (98-107) mmol/L Carbon Dioxide (22-30) mmol/L BUN (7-17) mg/dL Glucose (74-99) mg/dL POC Glucose (mg/dL) 196 H 105 H 138 H (75-99) mg/dL Calcium (8.4-10.2) mg/dL 10/03/17 10/03/17 10/03/17 Range/Units 07:05 07:05 11:01 RBC 3.70 L (3.80-5.40) m/uL MCV 108.8 H (80.0-100.0) fL MCH 35.8 H (25.0-35.0) pg Neutrophils # 8.8 H (1.3-7.7) k/uL Lymphocytes # 0.4 L (1.0-4.8) k/uL Sodium 135 L (137-145) mmol/L Chloride 93 L (98-107) mmol/L Carbon Dioxide 34 H (22-30) mmol/L BUN 23 H (7-17) mg/dL Glucose 143 H (74-99) mg/dL POC Glucose (mg/dL) 138 H (75-99) mg/dL Calcium 8.1 L (8.4-10.2) mg/dL Microbiology - Last 24 Hours (Table) 10/02/17 12:00 Gram Stain - Preliminary Bronchial Washings - Right Bronchial Washings Culture - Preliminary 10/02/17 12:00 Fungal Culture - Preliminary Bronchial Washings - Right 10/02/17 12:00 Acid Fast Bacilli Culture - Preliminary Bronchial Washings - Right Assessment and Plan Plan: Assessment: Hypoxemic respiratory failure secondary to community-acquired pneumonia Previous history of ventilator dependence and respiratory failure secondary to bilateral multilobar pneumonia and influenza A, 2015 History of chronic tobacco dependence with possible COPD Fibromyalgia Hypertension Anxiety Chronic pain syndrome Chronic sinus disease Plan: Patient parts improvement in her dyspnea, coughing, chest congestion and chest discomfort. She has been up ambulating on portable oxygen, tolerated activity fairly well. She did desaturate to 88% on room, home oxygen is being arranged. Bronchial wash cultures are still pending at this time, patient has been on IV Levaquin. From pulmonary standpoint she is stable for discharge home today. She will need to finish 3 more days of oral Levaquin, prednisone taper, she can continue on her home Dulera, she has a nebulizer machine with DuoNeb at home. Patient will need an appointment with Dr. Aguila for next week. I performed a history & physical examination of the patient and discussed their management with my nurse practitioner, Sylvia Li. I reviewed the nurse practitioner's note and agree with the documented findings and plan of care. Lung sounds are positive for minimal crackles at the bases. The findings and the impression was discussed with the patient. I attest to the documentation by the nurse practitioner. Time with Patient: Less than 30
--- NOTE | 2017-10-04 07:08 | DS ---
DISCHARGE SUMMARY DATE OF ADMISSION: 09/23/2017 DATE OF DISCHARGE: 10/03/2017 FINAL DIAGNOSES: 1. Bilateral multilobar pneumonia, possibly from gram-negative organism causing sepsis, present on admission. 2. Acute chronic obstructive pulmonary disease exacerbation in an ex-smoker. 3. Oropharyngeal candidiasis, present on admission. 4. Chronic pain syndrome. 5. Gastroesophageal reflux disease. 6. Essential hypertension. 7. Primary osteoarthritis in multiple joints. 8. Raynaud disease. 9. Moderate protein calorie malnutrition from decreased oral intake. 10.Acute hypoxic respiratory failure secondary to pneumonia, patient requiring oxygen to go home. CONSULTATION: Dr. Shook/Dr. Vaughn from Pulmonary. HOSPITAL COURSE: This patient presented with bilateral pneumonia, was improving only slowly. Patient did undergo bronchoscopy and lavage yesterday and did really well after that. Feeling much better. Dr. Vaughn okayed the patient to go home today. Cultures were pending. Will give Diflucan until steroid course is done. Patient tolerating a diet and feeling much better. ON EXAMINATION: LUNGS: Decreased breath sounds. PSYCH: AO x3. ADDITIONAL CONSULTATION: Dr. Thompson from Cardiology. The patient's 2D echo showed preserved LV function. DISCHARGE MEDICATIONS: 1. Fioricet with codeine 1 capsule p.o. t.i.d. p.r.n. 2. Vitamin D3, 2000 units p.o. daily. 3. Folic acid 1 mg p.o. daily. 4. Zofran 8 mg p.o. t.i.d. p.r.n. 5. Protonix 40 mg p.o. b.i.d. 6. Vitamin B6, 100 mg p.o. daily. 7. Senokot-S 2 tablets p.o. q.h.s. 8. Ambien 10 mg p.o. q.h.s. 9. Valacyclovir 1000 mg p.o. daily. 10.Baclofen 10 mg p.o. b.i.d. 11.Baclofen 20 mg p.o. q.h.s. 12.Xanax 0.5 p.o. b.i.d. 13.Xanax 1 mg p.o. q.h.s. 14.Calcium magnesium 1 capsule p.o. b.i.d. 15.Vitamin B12 injection 1000 mcg subcu q.14 days. 16.Iron 325 p.o. daily. 17.Neurontin 100 mg p.o. t.i.d. 18.DuoNeb q.i.d. p.r.n. 19.Synthroid 50 mcg p.o. daily. 20.Melatonin 10 mg p.o. q.h.s. 21.Dulera 200/5 two puffs b.i.d. 22.Bystolic 20 mg p.o. daily. 23.Norvasc 2.5 p.o. q.h.s. 24.Norvasc 5 mg p.o. daily. 25.Restasis 1 drop to both eyes b.i.d. 26.Percocet 10 one tab p.o. q.i.d. p.r.n. 27.Diflucan 100 mg p.o. daily. 28.Levaquin 750 mg p.o. daily for 3 days. 29.Mucinex 1200 mg p.o. q.12. 30.Prednisone taper. Follow up with Dr. Shook in 1 week. Follow up with Dr. Landa on 10/04/2017. Home oxygen on 2 L. The patient's pulse ox was still down to 88% and patient was symptomatic; hence oxygen ordered per Pulmonary. MMODL / IJN: [id number] /
== END 2017-10-03 14:34 | disposition home health service (06) | DRG 853 ==
LOC: EC 15:05 → 6SEL 17:25 → 5MS5E 09-30 22:37 → 6SEL 09-30 22:55 → 5MS5E 10-01 00:27
PROVIDERS: ADMIT Hospitalist; ATTEND Hospitalist
PROC: 0B9D8ZZ Drainage of Right Middle Lung Lobe, Via Natural or Artificial Opening Endoscopic (ICD-10-PCS; 2017-10-02)
PROC: 0B9H8ZZ Drainage of Lung Lingula, Via Natural or Artificial Opening Endoscopic (ICD-10-PCS; 2017-10-02)
PROC: 0B9F8ZZ Drainage of Right Lower Lung Lobe, Via Natural or Artificial Opening Endoscopic (ICD-10-PCS; 2017-10-02)
PROC: 0B948ZZ Drainage of Right Upper Lobe Bronchus, Via Natural or Artificial Opening Endoscopic (ICD-10-PCS; 2017-10-02)
PROC: 0B988ZZ Drainage of Left Upper Lobe Bronchus, Via Natural or Artificial Opening Endoscopic (ICD-10-PCS; 2017-10-02)
PROC: 0B918ZZ Drainage of Trachea, Via Natural or Artificial Opening Endoscopic (ICD-10-PCS; 2017-10-02)
PROC: 0B938ZZ Drainage of Right Main Bronchus, Via Natural or Artificial Opening Endoscopic (ICD-10-PCS; 2017-10-02)
PROC: 0B978ZZ Drainage of Left Main Bronchus, Via Natural or Artificial Opening Endoscopic (ICD-10-PCS; 2017-10-02)
PROC: 0B9D8ZX Drainage of Right Middle Lung Lobe, Via Natural or Artificial Opening Endoscopic, Diagnostic (ICD-10-PCS; principal; 2017-10-02 08:30)
PROC: 0B9J8ZZ Drainage of Left Lower Lung Lobe, Via Natural or Artificial Opening Endoscopic (ICD-10-PCS; 2017-10-02 08:30)
DX: A41.9 Sepsis, unspecified organism (principal); J15.6 Pneumonia due to other Gram-negative bacteria; J96.01 Acute respiratory failure with hypoxia; J96.02 Acute respiratory failure with hypercapnia; E44.0 Moderate protein-calorie malnutrition; E87.2 Acidosis; B37.0 Candidal stomatitis; J44.0 Chronic obstructive pulmonary disease with (acute) lower respiratory infection; J44.1 Chronic obstructive pulmonary disease with (acute) exacerbation; Z68.1 Body mass index [BMI] 19.9 or less, adult; G89.4 Chronic pain syndrome; K21.9 Gastro-esophageal reflux disease without esophagitis; M19.91 Primary osteoarthritis, unspecified site; I73.00 Raynaud's syndrome without gangrene; M79.7 Fibromyalgia; J32.9 Chronic sinusitis, unspecified; M62.50 Muscle wasting and atrophy, not elsewhere classified, unspecified site; K59.09 Other constipation; G43.909 Migraine, unspecified, not intractable, without status migrainosus; F41.0 Panic disorder [episodic paroxysmal anxiety]; I49.3 Ventricular premature depolarization; N28.9 Disorder of kidney and ureter, unspecified; Z79.51 Long term (current) use of inhaled steroids; Z79.899 Other long term (current) drug therapy; Z87.891 Personal history of nicotine dependence; Z90.49 Acquired absence of other specified parts of digestive tract; Z90.710 Acquired absence of both cervix and uterus; Z98.1 Arthrodesis status; Z88.8 Allergy status to other drugs, medicaments and biological substances; Z77.29 Contact with and (suspected) exposure to other hazardous substances; W61.99XA Other contact with other birds, initial encounter; Z88.1 Allergy status to other antibiotic agents; Z88.5 Allergy status to narcotic agent; Z88.0 Allergy status to penicillin; Z86.73 Personal history of transient ischemic attack (TIA), and cerebral infarction without residual deficits
CPT/HCPCS: 31624; 31645; 36415; 71045; 71046; 80048; 80053; 82550; 82553; 83605; 83735; 83880; 84484; 85025; 85027; 85379; 85610; 85730; 87070; 87102; 87116; 87205; 87206; 87252; 87496; 87498; 87502; 87529; 87634; 87798; 88108; 88305; 89050; 93005; 93306; 94640; 94760; 96361; 96365; 96367; 96375; 99285

== ENCOUNTER → 2020-01-18 | Outpatient (CLI) | payer MEDICARE, BC ==
[~2020-01-18] MED LIST: DENOSUMAB 60 MG/ML 1 ML SYRINGE SQ NR
[2020-01-18 14:33] VITALS: BP 134/65; PULSE 61; RESP 16
== END | disposition home or self-care (01) ==
LOC: PROCWHC3 14:01
PROVIDERS: ATTEND Internal Medicine
DX: M81.0 Age-related osteoporosis without current pathological fracture (principal)
CPT/HCPCS: 96372; J0897

== ENCOUNTER → 2021-09-08 | Outpatient (CLI) | payer MEDICARE, BC ==
[2021-09-08 10:16] VITALS: BP 136/78; PULSE 80; RESP 15; TEMP 98.5
== END | disposition home or self-care (01) ==
LOC: PROCWHC3 10:04
PROVIDERS: ATTEND Family Medicine
DX: M81.0 Age-related osteoporosis without current pathological fracture (principal)
CPT/HCPCS: 96372; J0897

== ENCOUNTER 2021-12-12 07:45 | Day surgery (SDC) | payer MEDICARE, BC ==
[2021-12-07 15:35] VITALS: BMI 18.4
[~2021-12-12 07:45] MED LIST changes: -DENOSUMAB 60 MG/ML 1 ML SYRINGE SQ NR; +LACTATED RINGERS 1,000 ML IV SCH; +LIDOCAINE 1% (10MG/ML) FOR IV START INTRADERMA PRN
[2021-12-12 08:23] VITALS: TEMP 97.7
[2021-12-12] MEDS ORDERED: PROPOFOL 10 MG/ML 20 ML VIAL IV ONE (09:03)
--- NOTE | 2021-12-12 09:05 | P.GSHP ---
History of Present Illness H&P Date: 12/12/21 Chief Complaint: GERD, change in bowel habits, blood in stool 61-year-old female here today for upper and lower endoscopy. Patient describes indigestion and heartburn. Some nausea. Also patient has intermittent diarrhea and constipation. Will have episodes of rectal bleeding as well. Last colonoscopy 6 years ago. Past Medical History Past Medical History: Asthma, Chest Pain / Angina, Fibromyalgia, GERD/Reflux, Hypertension, Osteoarthritis (OA), Pneumonia, Renal Disease Additional Past Medical History / Comment(s): Degenerative disc disease; ARTHRITIS; MIGRAINES:inner ear equilbrium issue, some renal stenosis, Reynauds disease, states was on a vent 14 years ago for pneumonia. R DVT. Cervical pain. Hypoglycemic. History of Any Multi-Drug Resistant Organisms: None Reported Past Surgical History: Appendectomy, Back Surgery, Cholecystectomy, Hysterectomy, Orthopedic Surgery, Tubal Ligation Additional Past Surgical History / Comment(s): 3 cervical fusions, ovarian cyst R MENISCUS SX; SHOULDER SX; CARPAL TUNNEL SX. Past Anesthesia/Blood Transfusion Reactions: No Reported Reaction Smoking Status: Former smoker - Past Family History Father Family Medical History: Cancer Mother Family Medical History: Deep Vein Thrombosis (DVT) Medications and Allergies Home Medications Medication Instructions Recorded Confirmed Type Butalbit/Acetamin/Caff/Codeine 1 cap PO TID PRN 11/27/13 12/07/21 History [Fioricet W/Codeine 86-85-406-40 Cap] Cholecalciferol [Vitamin D3 (25 2,000 unit PO DAILY 11/27/13 12/07/21 History Mcg = 1000 Iu)] Folic Acid 1 mg PO DAILY 11/27/13 12/07/21 History Ondansetron HCl [Zofran] 8 mg PO TID PRN 11/27/13 12/12/21 History Pyridoxine [Vitamin B-6] 100 mg PO DAILY 11/27/13 12/07/21 History Zolpidem [Ambien] 10 mg PO HS 11/27/13 12/07/21 History valACYclovir HCL [Valtrex] 1,000 mg PO DAILY 11/27/13 12/12/21 History Baclofen [Lioresal] 10 mg PO BID 05/02/14 12/12/21 History Baclofen 20 mg PO HS 07/21/14 12/07/21 History ALPRAZolam [Xanax] 0.5 mg PO BID 09/23/17 12/07/21 History ALPRAZolam [Xanax] 2 mg PO HS 09/23/17 12/07/21 History Cyanocobalamin [Vitamin B-12 1,000 mcg SQ Q14D 09/23/17 12/07/21 History Injection] Gabapentin [Neurontin] 300 mg PO QID 09/23/17 12/07/21 History Ipratropium-Albuterol Nebulize 3 ml INHALATION RT-QID PRN 09/23/17 12/07/21 History [Duoneb 0.5 mg-3 mg/3 ml Soln] Levothyroxine Sodium [Synthroid] 50 mcg PO DAILY 09/23/17 12/12/21 History Mometasone/Formoterol [Dulera 200 2 puff INHALATION RT-BID 09/23/17 12/07/21 History Mcg-5 Mcg Inhaler] Nebivolol HCl [Bystolic] 20 mg PO DAILY 09/23/17 12/07/21 History amLODIPine [Norvasc] 2.5 mg PO HS 09/23/17 12/07/21 History amLODIPine [Norvasc] 5 mg PO DAILY 09/23/17 12/12/21 History HYDROcodone/APAP 10-325MG [[place] 1 tab PO Q8HR PRN 01/18/20 12/07/21 History 10-325] Lansoprazole 30 mg PO BID 01/18/20 12/07/21 History Magnesium Oxide [Magox 400] 400 mg PO BID 09/08/21 12/07/21 History Denosumab [Prolia] 60 mg SQ Q6M 12/07/21 12/07/21 History Allergies Allergy/AdvReac Type Severity Reaction Status Date / Time enoxaparin sodium Allergy Severe "welts" Verified 12/07/21 15:02 [From Lovenox] morphine sulfate Allergy Severe uncontroled Verified 12/07/21 15:02 [From Shania] muscles pregabalin [From Lyrica] Allergy Severe Swelling,rash Verified 12/07/21 15:02 all over body amoxicillin [From Augmentin] Allergy Unknown Verified 12/07/21 15:02 atomoxetine HCl Allergy Rash/Hives Verified 12/07/21 15:02 [From Strattera] ceftriaxone [From Rocephin] Allergy Unknown Verified 12/07/21 15:02 cefuroxime [From Ceftin] Allergy Unknown Verified 12/07/21 15:02 clarithromycin [From Biaxin] Allergy Rash/Hives Verified 12/07/21 15:02 clavulanic acid Allergy Unknown Verified 12/07/21 15:02 [From Augmentin] duloxetine HCl Allergy Rash/Hives Verified 12/07/21 15:02 [From Cymbalta] enoxaparin [From Lovenox] Allergy Rash/Hives Verified 12/07/21 15:02 fentanyl Allergy Unknown Verified 12/07/21 15:02 metoprolol Allergy Unknown Verified 12/07/21 15:02 NSAIDS (Non-Steroidal Allergy bleeding Verified 12/07/21 15:02 Anti-Inflamma ulcer valsartan [From Diovan] Allergy Unknown Verified 12/07/21 15:02 warfarin sodium Allergy Rash/Hives Verified 12/07/21 15:02 [From Coumadin] axetil Allergy Rash/Hives Uncoded 12/07/21 15:02 Surgical - Exam Vital Signs Temp Resp BP 97.7 F 16 149/80 12/12/21 08:22 12/12/21 08:22 12/12/21 08:22 Physical exam: General: Well-developed, well-nourished HEENT: Normocephalic, sclerae nonicteric Abdomen: Nontender, nondistended Extremities: No edema Neuro: Alert and oriented Assessment and Plan (1) Blood in stool Narrative/Plan: Will proceed with upper and lower endoscopy Current Visit: Yes Status: Acute Code(s): K92.1 - MELENA SNOMED Code(s): 240283152
--- NOTE | 2021-12-12 09:35 | P.PCN ---
Date of Procedure: 12/12/21 Procedure(s) Performed: PREOPERATIVE DIAGNOSIS: GERD, blood in stool POSTOPERATIVE DIAGNOSIS: Gastritis, rectal polyp, tortuous colon unable to complete colonoscopy PROCEDURE: 1. EGD with biopsy 2. Colonoscopy with snare polypectomy to the transverse colon ANESTHESIA: MAC SURGEON: Riley Staton M.D. SPECIMENS: Antrum, rectal polyp ENDOSCOPIC PROCEDURE: The patient was on the endoscopy table in the left decubitus position. The Olympus gastroscope was inserted into the oropharynx and passed under direct visualization to the region of the third portion of the duodenum. From that point the scope was slowly withdrawn inspecting all surfaces carefully. There were no neoplastic inflammatory or polypoid lesions throughout the duodenum. The pylorus was widely patent. The stomach was carefully inspected. There was diffuse gastritis present. A biopsy of the antrum took place to rule out H. pylori. Retroflexion revealed a normal hiatus. The esophagus was then carefully examined. There were no neoplastic inflammatory or polypoid lesions throughout the visualized esophagus. The patient was kept on the endoscopy table in the left decubitus position. The Olympus colonoscope was inserted into the anus and passed under direct visualization to the mid transverse colon. Despite multiple attempts we were unable to advance beyond the transverse colon. The patient had significant colonic tortuosity. The transverse descending and sigmoid colon appeared normal. At the proximal rectum approximately 15 cm there was a pedunculated polyp that was removed using the snare with cautery technique. This measured 1 cm in size. The remainder the rectum appeared normal. There is no visible diverticulosis. Digital rectal examination was normal. The patient was taken to the recovery room in stable condition per anesthesia guidelines. RECOMMENDATIONS: Await biopsy results. Begin antiacid therapy. Patient will require alternative colonic evaluation including barium enema or CT colonoscopy. This will be arranged with patient after biopsy results reviewed with her.
[2021-12-12 09:41] VITALS: RESP 18
[2021-12-12 10:02] VITALS: BP 132/72; PULSE 63
== END 2021-12-12 10:31 | disposition home or self-care (01) ==
LOC: ORWHC2ENDO 07:45
PROVIDERS: ATTEND Surgery
DX: K29.50 Unspecified chronic gastritis without bleeding (principal); K92.1 Melena; K21.9 Gastro-esophageal reflux disease without esophagitis; I10 Essential (primary) hypertension; J45.909 Unspecified asthma, uncomplicated; K59.00 Constipation, unspecified; M19.90 Unspecified osteoarthritis, unspecified site; M79.7 Fibromyalgia; Z79.51 Long term (current) use of inhaled steroids; Z86.718 Personal history of other venous thrombosis and embolism; Z87.891 Personal history of nicotine dependence; Z88.0 Allergy status to penicillin; Z88.1 Allergy status to other antibiotic agents; Z88.5 Allergy status to narcotic agent; Z88.6 Allergy status to analgesic agent; Z88.8 Allergy status to other drugs, medicaments and biological substances; Z90.49 Acquired absence of other specified parts of digestive tract
CPT/HCPCS: 88305; 45385; 43239; J2704

== ENCOUNTER → 2022-02-21 | Outpatient (CLI) | payer MEDICARE, BC ==
--- NOTE | 2022-02-21 16:56 | FL ---
INDICATION: Patient age:Female; 61 years old; Reason for study: K92.1 Blood in stool; [facility]. Failed colonoscopy. COMPARISON: Abdominal radiograph 01/17/2012. TECHNIQUE: The procedure was explained and patient history elicited. All patient questions were ans wered prior to beginning. Multiple spot fluoroscopic images of the colon were obtained after the rect al administration of liquid barium as the contrast agent. This was also followed by the administratio n of air for colonic distention. Multiple postprocedural overhead images, were obtained and reviewed. Fluoroscopic time: 1 minute 10 seconds. 999 mL polibar used FINDINGS: The senior firmware engineer abdominal radiograph demonstrates a normal bowel gas pattern without dilated loo ps of small or large bowel. There is no evidence for organomegaly or pneumoperitoneum. No abnormal calcifications. The visualized osseous structures are intact. Cholecystectomy clips in right upper q uadrant. The colon demonstrates normal contour without evidence of focal stricture or internal filling defects . The sigmoid and splenic flexure are tortuous. A couple of diverticula demonstrated. Views of the c ecum are unremarkable. Contrast is demonstrated within the appendix. Postevacuation images are unremarkable. IMPRESSION: 1. No evidence for abnormal stricture or mass lesion. 2. Colonic diverticulosis.
== END | disposition home or self-care (01) ==
LOC: RADFLMAIN 09:18
PROVIDERS: ATTEND Surgery
DX: K92.1 Melena (principal)
CPT/HCPCS: 74280

== ENCOUNTER → 2022-04-27 | Outpatient (CLI) | payer MEDICARE, BC ==
[~2022-04-27] MED LIST changes: +DENOSUMAB 60 MG/ML 1 ML SYRINGE SQ NR; -LACTATED RINGERS 1,000 ML IV SCH; -LIDOCAINE 1% (10MG/ML) FOR IV START INTRADERMA PRN
[2022-04-27 12:45] VITALS: BP 167/67; PULSE 72; RESP 16; TEMP 98.1
== END | disposition home or self-care (01) ==
LOC: PROCWHC3 12:18
PROVIDERS: ATTEND Internal Medicine
DX: M81.0 Age-related osteoporosis without current pathological fracture (principal)
CPT/HCPCS: 96372; J0897

== ENCOUNTER → 2022-07-02 | Outpatient (CLI) | payer MEDICARE, BC ==
--- NOTE | 2022-07-02 10:44 | US ---
EXAMINATION TYPE: US duplex aorta DATE OF EXAM: 07/02/2022 COMPARISON: NONE CLINICAL HISTORY: R09.89 SYMPTOMS INVOLVING CIRCULATORY AND RESP SYSTEMS. Bruit TECHNIQUE: Multiple sonographic images of the abdominal aorta are obtained. FINDINGS: EXAM MEASUREMENTS: Abdominal Aorta: Proximal: 1.8 x 2.1 cm Mid: 2.0 x 2.4 cm Distal: 1.9 x 1.3 cm Bifurcation: .3 x .5 cm .4 x .6 cm SCIENTIFIC AIDE NOTES: Aorta is successfully visualized through the bifurcation. IMPRESSION: No ultrasound evidence for greater than 3.0 cm AAA. Note is made of small caliber bilater al common iliac arteries. Correlate for peripheral vascular disease advised.
== END | disposition home or self-care (01) ==
LOC: RADUSWWP 09:26
PROVIDERS: ATTEND Internal Medicine
DX: R09.89 Other specified symptoms and signs involving the circulatory and respiratory systems (principal)
CPT/HCPCS: 93979

== ENCOUNTER → 2022-07-02 | Outpatient (CLI) | payer MEDICARE, BC ==
--- NOTE | 2022-07-02 10:12 | MM ---
Reason for Exam: Follow-up at short interval from prior study. Last screening mammogram was performed 9 month(s) ago. Patient History: Menarche at age 14. First Full-Term at age 26. Right ovary removed at age 45. Hysterectomy at age 31. Postmenopausal. Other cancer. Hormonal Contraceptives, starting at age 21 for 9 years. Cyst Aspiration on the Right side. 2003, Benign Excisional Biopsy on the right side. 09/21/2021, US discontinued breast core RT on the right side. 09/20/2005, Bilateral Implants. Maternal grandmother had breast cancer, age 84. Risk Values: Aditi 5 year model risk: 1.9%. NCI Lifetime model risk: 9.5%. Prior Study Comparison: 06/23/2014 Bilateral Diagnostic Mammogram, [facility]. 12/23/2020 Bilateral MG screening mammo implant/CAD, [facility]. 09/21/2021 Bilateral MG diagnostic mammo w CAD JULISSA - 2, [facility]. Tissue Density: The breast tissue is extremely dense which could obscure a lesion on mammography. Findings: Analyzed By CAD. Benign appearing vascular calcification in the right breast is redemonstrated. Single benign-appearing round calcification in the left breast is redemonstrated. Subpectoral bilateral breast implants again seen. No suspicious new distortion or worrisome group of microcalcification in either breast. Overall Assessment: Benign, BI-RAD 2 Management: Screening Mammogram of both breasts in 1 year. Return to routine follow-up. Results were given to the patient verbally at the time of exam. Electronically signed and approved by: Jessee Belle M.D.
== END | disposition home or self-care (01) ==
LOC: RADMAMWWP 09:24
PROVIDERS: ATTEND Obstetrics & Gynecology
DX: N63.10 Unspecified lump in the right breast, unspecified quadrant (principal); R92.1 Mammographic calcification found on diagnostic imaging of breast; N63.20 Unspecified lump in the left breast, unspecified quadrant; Z80.3 Family history of malignant neoplasm of breast; Z78.0 Asymptomatic menopausal state
CPT/HCPCS: 77066

== ENCOUNTER → 2022-08-16 | Outpatient (CLI) | payer MEDICARE, BC ==
--- NOTE | 2022-08-17 08:21 | US ---
EXAMINATION TYPE: US arterial LE single level DATE OF EXAM: 08/16/2022 1:18 PM CLINICAL HISTORY: I77.1 STRICTURE OF ARTERY. Common iliac artery stenosis per order. History of: Smoker: Yes Hypertension: Yes Diabetic: No Hyperlipidemia: Yes TIA/CVA: Yes Previous Vascular Surgery: No CAD: No MT: No Vascular Ulcers: No Claudication: No Gangrene: No Doppler Waveforms: Right: Multiphasic Left: Multiphasic Right Brachial Pressure: 144 Left Brachial Pressure: 136 Ankle-Brachial Indices: Right: 1.1 Left: 1.1 Toe Brachial Indices: Right: 0.54 Left: 0.65 IMPRESSION: Normal bilateral ZACK values. Diminished right sided TBI consistent with at least mild per ipheral arterial disease in the right foot. Follow-up advised.
== END | disposition home or self-care (01) ==
LOC: RADUSWWP 12:22
PROVIDERS: ATTEND Internal Medicine
DX: I70.8 Atherosclerosis of other arteries (principal); I77.1 Stricture of artery; I10 Essential (primary) hypertension; E78.5 Hyperlipidemia, unspecified; Z87.891 Personal history of nicotine dependence; Z86.73 Personal history of transient ischemic attack (TIA), and cerebral infarction without residual deficits
CPT/HCPCS: 93922

== ENCOUNTER → 2022-11-01 | Outpatient (CLI) | payer MEDICARE, BC ==
[2022-11-01 14:16] VITALS: BP 171/78; PULSE 54; RESP 16; TEMP 98.1
== END ==
LOC: PROCWHC3 13:00
PROVIDERS: ATTEND Internal Medicine
DX: M81.0 Age-related osteoporosis without current pathological fracture (principal); Z88.5 Allergy status to narcotic agent; Z88.0 Allergy status to penicillin; Z88.1 Allergy status to other antibiotic agents; Z88.6 Allergy status to analgesic agent; Z91.018 Allergy to other foods; Z88.8 Allergy status to other drugs, medicaments and biological substances; Z87.891 Personal history of nicotine dependence
CPT/HCPCS: 96372; J0897

== ENCOUNTER → 2022-11-01 | Outpatient (CLI) | payer MEDICARE, BC ==
--- NOTE | 2022-11-01 13:15 | BD ---
EXAMINATION TYPE: Axial Bone Density DATE OF EXAM: 11/01/2022 CLINICAL HISTORY: 62 years old Female. ICD-10 CODE: M81.0 AGE RELATED OSTEOPOROSIS Height: 63 Weight: 94.2 FRAX RISK QUESTIONS: Alcohol (3 or more units per day): no Family History (Parent hip fracture): no Glucocorticoids (More than 3mos): no (Ex: prednisone, prednisolone, methylprednisolone, dexamethasone, and hydrocortisone). History of Fracture in Adulthood: no Secondary Osteoporosis: 1. Type 1 Diabetes: no 2. Hyperthyroidism: no 3. Menopause before 45: yes 4. Malnutrition: yes 5. Chronic liver disease: no Rheumatoid Arthritis: no Current Tobacco Use: no RISK FACTORS HISTORY OF: Surgery to Spine/Hip(right/left)/Wrist (right/left): c-spine When: age 31 Family History of Osteoporosis: no Active: no Diet low in dairy products/other sources of calcium: yes Postmenopausal woman: yes Lost more than 2 inches in height since high school: yes MEDICATIONS: Thyroid Medications: synthroid How Lon years Osteoporosis Medications: prolia How Lon doses Additional History: EXAM MEASUREMENTS: Bone mineral densitometry was performed using the [employer] System. Bone mineral density as measured about the Lumbar spine is: ----- L1-L4(G/cm2): 1.256 T Score Values are as follows: ----- L1: -0.6 ----- L2: 0.1 ----- L3: 1.2 ----- L4: 1.6 ----- L1-L4: 0.6 Z Score Values are as follows: ----- L1: 1.5 ----- L2: 2.2 ----- L3: 3.2 ----- L4: 3.6 ----- L1-L4: 2.7 Bone mineral density has: increased 13.9 % since study of: 05.22.2017 Bone mineral density about the R hip (g/cm2): 0.864 Bone mineral density about the L hip (g/cm2): 0.861 T Score values are as follows: -----R Neck: -1.6 -----L Neck: -1.8 -----R Total: -1.1 -----L Total: -1.2 Z Score values are as follows: -----R Neck: 0.2 -----L Neck: 0.0 -----R Total: 0.3 -----L Total: 0.4 Bone mineral density has: decreased - 3.5 % since study of: 2017 FRAX%s: The graph provided illustrates a 12.3% chance for a major osteoporotic fx and a 1.6% chance f or the hips probability for fx in 10 years time. IMPRESSION: Osteopenia (T Score between -2.5 and -1). There is slightly increased risk of fracture and the patient may be considered for treatment. Re-Screen 2-5 years. NOTE: T-SCORE=SD OF THE YOUNG ADULT MEAN.
== END | disposition home or self-care (01) ==
LOC: RADBDWWP 12:27
PROVIDERS: ATTEND Internal Medicine
DX: M81.0 Age-related osteoporosis without current pathological fracture (principal); M85.89 Other specified disorders of bone density and structure, multiple sites; Z78.0 Asymptomatic menopausal state
CPT/HCPCS: 77080

== ENCOUNTER → 2023-08-07 | Outpatient (CLI) | payer MEDICARE ==
--- NOTE | 2023-08-07 20:54 | MM ---
Reason for Exam: Hx of breast augmentation, asymptomatic. Last mammogram was performed 1 year(s) and 1 month(s) ago. Patient History: Menarche at age 14. First Full-Term at age 26. Right ovary removed at age 45. Hysterectomy at age 31. Postmenopausal. Other cancer, age 26. Hormonal Contraceptives, starting at age 21 for 9 years. Cyst Aspiration on the Right side. 2003, Benign Excisional Biopsy on the right side. 09/21/2021, US discontinued breast core RT on the right side. 09/20/2005, Bilateral Implants. Maternal grandmother had breast cancer, age 84. Risk Values: Aditi 5 year model risk: 1.9%. NCI Lifetime model risk: 9.3%. Prior Study Comparison: 12/23/2020 Bilateral MG screening mammo implant/CAD, [facility]. 09/21/2021 Bilateral MG diagnostic mammo w CAD JULISSA - 2, [facility]. 07/02/2022 Bilateral MG diag mamm implants JULISSA w CAD, [facility]. Tissue Density: The breast tissue is extremely dense which could obscure a lesion on mammography. Findings: Analyzed By CAD. Retropectoral saline implants redemonstrated on both sides. There is no suspicious group of microcalcifications or new suspicious mass in either breast. Overall Assessment: Benign, BI-RAD 2 Management: Screening Mammogram of both breasts in 1 year. Given extremely dense breast tissues, consideration could be given to supplementary screening with breast ultrasound.. Patient should continue monthly self-breast exams. A clinical breast exam by your physician is recommended on an annual basis. This exam should not preclude additional follow-up of suspicious palpable abnormalities. Note on Aditi scores and lifetime risk: 1. A Aditi score greater than 3% is considered moderate risk. If this is the case, consider specialist referral to assess eligibility for a risk reducing agent. 2. If overall lifetime risk for the development of breast cancer is 20% or higher, the patient may qualify for future screening with alternating mammogram and breast MRI. Electronically signed and approved by: Radu Wallace M.D. Radiologist
== END | disposition home or self-care (01) ==
LOC: RADMAMWWP 11:27
PROVIDERS: ATTEND Obstetrics & Gynecology
DX: Z12.31 Encounter for screening mammogram for malignant neoplasm of breast (principal); Z78.0 Asymptomatic menopausal state
CPT/HCPCS: 77063; 77067

== ENCOUNTER 2023-08-28 16:18 | Emergency (ER) | payer MEDICARE ==
--- NOTE | 2023-08-28 16:38 | ED ---
Abdominal Pain HPI - General Chief Complaint: Abdominal Pain Stated Complaint: Severe pain in right lower quadrant Time Seen by Provider: 08/28/23 16:36 Source: patient, family, RN notes reviewed Mode of arrival: ambulatory Limitations: no limitations - History of Present Illness Initial Comments: Patient is a 62-year-old female presenting to the ER with a chief complaint of right lower quadrant pain. Patient states the pain started last night around 9 PM and now is traveling towards her [facility]. Patient reports she followed up with her PCP today who advised her to come to the ER for CT scan for possible appendicitis. Patient reports she had a normal bowel movement this morning. Denies any diarrhea. She does report nausea started about an hour ago denies any emesis. Denies any fevers or chills. Patient has had a cholecystectomy and hysterectomy. She also reports that she has had no appetite since the pain has started. Denies any shortness of breath, chest pain, urinary symptoms, peripheral edema. - Related Data Home Medications Medication Instructions Recorded Confirmed Butalbit/Acetamin/Caff/Codeine 1 cap PO TID PRN 11/27/13 11/01/22 [Fioricet W/Codeine [id number] Cap] Cholecalciferol [Vitamin D3 (25 2,000 unit PO DAILY 11/27/13 11/01/22 Mcg = 1000 Iu)] Folic Acid 1 mg PO DAILY 11/27/13 11/01/22 Ondansetron HCl [Zofran] 8 mg PO TID PRN 11/27/13 11/01/22 Pyridoxine [Vitamin B-6] 100 mg PO DAILY 11/27/13 11/01/22 Zolpidem [Ambien] 10 mg PO HS 11/27/13 11/01/22 valACYclovir HCL [Valtrex] 1,000 mg PO DAILY 11/27/13 11/01/22 Baclofen [Lioresal] 10 mg PO BID 05/02/14 11/01/22 Baclofen 20 mg PO HS 07/21/14 11/01/22 ALPRAZolam [Xanax] 0.5 mg PO BID 09/23/17 11/01/22 ALPRAZolam [Xanax] 2 mg PO HS 09/23/17 11/01/22 Cyanocobalamin [Vitamin B-12 1,000 mcg SQ Q14D 09/23/17 11/01/22 Injection] Gabapentin [Neurontin] 300 mg PO QID 09/23/17 11/01/22 Ipratropium-Albuterol Nebulize 3 ml INHALATION RT-QID PRN 09/23/17 11/01/22 [Duoneb 0.5 mg-3 mg/3 ml Soln] Levothyroxine Sodium [Synthroid] 50 mcg PO DAILY 09/23/17 11/01/22 Mometasone/Formoterol [Dulera 200 2 puff INHALATION RT-BID 09/23/17 11/01/22 Mcg-5 Mcg Inhaler] Nebivolol HCl [Bystolic] 20 mg PO DAILY 09/23/17 11/01/22 amLODIPine [Norvasc] 2.5 mg PO HS 09/23/17 11/01/22 amLODIPine [Norvasc] 5 mg PO DAILY 09/23/17 11/01/22 HYDROcodone/APAP 10-325MG [Lenore 1 tab PO Q8HR PRN 01/18/20 11/01/22 10-325] Lansoprazole 30 mg PO BID 01/18/20 11/01/22 Magnesium Oxide [Magox 400] 400 mg PO BID 09/08/21 11/01/22 Denosumab [Prolia] 60 mg SQ Q6M 12/07/21 11/01/22 Aspirin [Adult Low Dose Aspirin EC] 81 mg PO DAILY 11/01/22 11/01/22 Previous Rx's Medication Instructions Recorded Ciprofloxacin HCl [Cipro] 500 mg PO Q12HR 5 Days #10 tab 08/28/23 metroNIDAZOLE 500 mg PO Q8HR 5 Days #15 tablet 08/28/23 Allergies Allergy/AdvReac Type Severity Reaction Status Date / Time enoxaparin sodium Allergy Severe "welts" Verified 11/01/22 13:19 [From Lovenox] morphine sulfate Allergy Severe uncontroled Verified 11/01/22 13:19 [From Shania] muscles pregabalin [From Lyrica] Allergy Severe Swelling,rash Verified 11/01/22 13:19 all over body amoxicillin [From Augmentin] Allergy Unknown Verified 11/01/22 13:19 atomoxetine HCl Allergy Rash/Hives Verified 11/01/22 13:19 [From Strattera] ceftriaxone [From Rocephin] Allergy Unknown Verified 11/01/22 13:19 cefuroxime [From Ceftin] Allergy Unknown Verified 11/01/22 13:19 clarithromycin [From Biaxin] Allergy Rash/Hives Verified 11/01/22 13:19 clavulanic acid Allergy Unknown Verified 11/01/22 13:19 [From Augmentin] duloxetine HCl Allergy Rash/Hives Verified 11/01/22 13:19 [From Cymbalta] enoxaparin [From Lovenox] Allergy Rash/Hives Verified 11/01/22 13:19 fentanyl Allergy Unknown Verified 11/01/22 13:19 metoprolol Allergy Unknown Verified 11/01/22 13:19 NSAIDS (Non-Steroidal Allergy bleeding Verified 11/01/22 13:19 Anti-Inflamma ulcer valsartan [From Diovan] Allergy Unknown Verified 11/01/22 13:19 warfarin sodium Allergy Rash/Hives Verified 11/01/22 13:19 [From Coumadin] axetil Allergy Rash/Hives Uncoded 11/01/22 13:19 Review of Systems ROS Statement: Those systems with pertinent positive or pertinent negative responses have been documented in the HPI. ROS Other: All systems not noted in ROS Statement are negative. Past Medical History Past Medical History: Asthma, Chest Pain / Angina, Fibromyalgia, GERD/Reflux, Hypertension, Osteoarthritis (OA), Pneumonia, Renal Disease Additional Past Medical History / Comment(s): Degenerative disc disease; ARTHRITIS; MIGRAINES:inner ear equilbrium issue, some renal stenosis, Reynauds disease, states was on a vent 14 years ago for pneumonia. R DVT. Cervical pain. Hypoglycemic., cardiac cath Mar 2022 History of Any Multi-Drug Resistant Organisms: None Reported Past Surgical History: Appendectomy, Back Surgery, Cholecystectomy, Hysterectomy, Orthopedic Surgery, Tubal Ligation Additional Past Surgical History / Comment(s): 3 cervical fusions, ovarian cyst R MENISCUS SX; SHOULDER SX; CARPAL TUNNEL SX. Past Anesthesia/Blood Transfusion Reactions: No Reported Reaction Past Psychological History: Anxiety Smoking Status: Former smoker Past Alcohol Use History: None Reported Past Drug Use History: Marijuana - Past Family History Father Family Medical History: Cancer Mother Family Medical History: Deep Vein Thrombosis (DVT) General Exam Limitations: no limitations General appearance: alert, in no apparent distress Head exam: Present: atraumatic, normocephalic, normal inspection Respiratory exam: Present: normal lung sounds bilaterally. Absent: respiratory distress, wheezes, rales, rhonchi, stridor Cardiovascular Exam: Present: regular rate, normal rhythm, normal heart sounds. Absent: systolic murmur, diastolic murmur, rubs, gallop, clicks GI/Abdominal exam: Present: soft, tenderness (Right lower quadrant. McBurney's point tenderness and Rovsing sign.), normal bowel sounds. Absent: distended, guarding, rebound, rigid Neurological exam: Present: alert, oriented X3, CN II-XII intact Psychiatric exam: Present: normal affect, normal mood Skin exam: Present: warm, dry, intact, normal color. Absent: rash Course Vital Signs 08/28/23 08/28/23 08/28/23 16:21 18:17 19:12 Temperature 98.8 F Pulse Rate 63 63 63 Respiratory 18 18 18 Rate Blood Pressure 129/65 197/76 182/73 O2 Sat by Pulse 98 97 98 Oximetry Medical Decision Making - Medical Decision Making Was pt. sent in by a medical professional or institution (, PA, FRAUD INVESTIGATOR, urgent care, hospital, or [place] [facility]...) When possible be specific @ -Sent here by PCP, Dr. Saha, for evaluation of possible appendicitis. Did you speak to anyone other than the patient for history (EMS, parent, family, police, friend...)? What history was obtained from this source @ -Family providing parts of HPI. Did you review nursing and triage notes (agree or disagree)? Why? @ -I reviewed and agree with nursing and triage notes Were old charts reviewed (outside hosp., previous admission, EMS record, old EKG, old radiological studies, urgent care reports/EKG's, [place] [facility] records)? Report findings @ -No old charts were reviewed Differential Diagnosis (chest pain, altered mental status, abdominal pain women, abdominal pain men, vaginal bleeding, weakness, fever, dyspnea, syncope, headache, dizziness, GI bleed, back pain, seizure, CVA, palpatations, mental health, musculoskeletal)? @ -Differential Abdominal Pain Women: Appendicitis, Cholecystitis, diverticulosis, ischemic bowel, pancreatitis, hepatitis, UTI, gastroenteritis, AAA, incarcerated hernia, bowel obstruction, constipation, inflammatory bowel, hepatitis, peptic ulcer disease, splenic infarction, perforated viscus, vulvitis, ovarian torsion, PID, kidney stone, placenta abruption, this is not meant to be an all-inclusive list EKG interpreted by me (3pts min.). @ -None X-rays interpreted by me (1pt min.). @ -None done CT interpreted by me (1pt min.). @ -CT abdomen pelvis performed showing acute diverticulitis of the cecum. Appendix is normal. No organization fluids collections are identified. U/S interpreted by me (1pt. min.). @ -None done What testing was considered but not performed or refused? (CT, X-rays, U/S, labs)? Why? @ -None What meds were considered but not given or refused? Why? @ -None Did you discuss the management of the patient with other professionals (professionals i.e. , PA, FRAUD INVESTIGATOR, lab, RT, psych nurse, social services director, data processing auditor, teacher, forward air controller/air officer, top case assembler)? Give summary @ -No Was smoking cessation discussed for >3mins.? @ -No Was critical care preformed (if so, how long)? @ -No Were there social determinants of health that impacted care today? How? (Homelessness, low income, unemployed, alcoholism, drug addiction, tr ansportation, low edu. Level, literacy, decrease access to med. care, [place] [facility], rehab)? @ -No Was there de-escalation of care discussed even if they declined (Discuss DNR or withdrawal of care, Hospice)? DNR status @ -No What co-morbidities impacted this encounter? (DM, HTN, Smoking, COPD, CAD, Cancer, CVA, ARF, Chemo, Hep., AIDS, mental health diagnosis, sleep apnea, morbid obesity)? @ -None Was patient admitted / discharged? Hospital course, mention meds given and route, prescriptions, significant lab abnormalities, going to OR and other pertinent info. @ -Discharge. Patient is a 62-year-old female presented to ER with a chief complaint of right lower quadrant pain. Patient sent here by PCP, Dr. Saha, for evaluation of appendicitis. History and physical exam were completed. Vital stable. Patient no signs of acute distress. Patient was exquisitely tender to right lower quadrant with radiation to left lower quadrant. No rebound tenderness. Labs obtained significant for white blood cell count 15.[address] abdomen pelvis performed showing acute diverticulitis of the cecum. Appendix is normal. No organization fluids collections are identified. Patient received IV fluids, Zofran, Dilaudid with mild improvement of her pain. I discussed lab and imaging findings with patient. Patient will be prescribed Flagyl and ciprofloxacin as she is allergic to Augmentin. Educated her on completing full course of antibiotics. Patient reports she takes hydrocodone at home for arthritis. Strict return parameters were discussed. Patient be discharged in stable condition with follow-up to PCP. Patient expressed understanding and agreement with care plan. Undiagnosed new problem with uncertain prognosis? @ -No Drug Therapy requiring intensive monitoring for toxicity (Heparin, Nitro, Insulin, Cardizem)? @ -No Were any procedures done? @ -No Diagnosis/symptom? @ -Diverticulitis/leukocytosis Acute, or Chronic, or Acute on Chronic? @ -Acute Uncomplicated (without systemic symptoms) or Complicated (systemic symptoms)? @ -Uncomplicated Side effects of treatment? @ -No Exacerbation, Progression, or Severe Exacerbation? @ -No Poses a threat to life or bodily function? How? (Chest pain, [place], [place], pneumonia, PE, COPD, DKA, ARF, appy, cholecystitis, CVA, Diverticulitis, Homicidal, Suicidal, threat to staff... and all critical care pts) @ -Yes, diverticulitis can lead to abscess and perforation of the bowel which can be life-threatening. - Lab Data Result diagrams: 08/28/23 16:57 08/28/23 16:57 Lab Results 08/28/23 08/28/23 08/28/23 Range/Units 16:57 16:57 16:57 WBC 15.6 H (3.8-10.6) k/uL RBC 4.08 (3.80-5.40) m/uL Hgb 13.9 (11.4-16.0) gm/dL Hct 41.9 (34.0-46.0) % MCV 102.7 H (80.0-100.0) fL MCH 34.0 (25.0-35.0) pg MCHC 33.1 (31.0-37.0) g/dL RDW 12.1 (11.5-15.5) % Plt Count 384 (150-450) k/uL MPV 7.8 Macrocytosis Slight Sodium 140 (137-145) mmol/L Potassium 4.8 (3.5-5.1) mmol/L Chloride 95 L (98-107) mmol/L Carbon Dioxide 36 H (22-30) mmol/L Anion Gap 9 mmol/L BUN 20 H (7-17) mg/dL Creatinine 1.02 (0.52-1.04) mg/dL Est GFR (CKD-EPI)AfAm 69 (>60 ml/min/1.73 sqM) Est GFR (CKD-EPI)NonAf 60 (>60 ml/min/1.73 sqM) Glucose 89 (74-99) mg/dL Plasma Lactic Acid Carlos (0.7-2.0) mmol/L Calcium 10.5 H (8.4-10.2) mg/dL Total Bilirubin 0.4 (0.2-1.3) mg/dL AST 39 H (14-36) U/L ALT 32 (4-34) U/L Alkaline Phosphatase 71 (38-126) U/L Total Protein 8.2 (6.3-8.2) g/dL Albumin 5.1 H (3.5-5.0) g/dL Amylase 85 (30-110) U/L Lipase 174 (23-300) U/L Urine Color Colorless Urine Appearance Clear (Clear) Urine pH 7.0 (5.0-8.0) Ur Specific [place] 1.006 (1.001-1.035) Urine Protein Negative (Negative) Urine Glucose (UA) Negative (Negative) Urine Ketones Negative (Negative) Urine Blood Negative (Negative) Urine Nitrite Negative (Negative) Urine Bilirubin Negative (Negative) Urine Urobilinogen <2.0 (<2.0) mg/dL Ur Leukocyte Esterase Negative (Negative) 08/28/23 Range/Units 16:57 WBC (3.8-10.6) k/uL RBC (3.80-5.40) m/uL Hgb (11.4-16.0) gm/dL Hct (34.0-46.0) % MCV (80.0-100.0) fL MCH (25.0-35.0) pg MCHC (31.0-37.0) g/dL RDW (11.5-15.5) % Plt Count (150-450) k/uL MPV Macrocytosis Sodium (137-145) mmol/L Potassium (3.5-5.1) mmol/L Chloride (98-107) mmol/L Carbon Dioxide (22-30) mmol/L Anion Gap mmol/L BUN (7-17) mg/dL Creatinine (0.52-1.04) mg/dL Est GFR (CKD-EPI)AfAm (>60 ml/min/1.73 sqM) Est GFR (CKD-EPI)NonAf (>60 ml/min/1.73 sqM) Glucose (74-99) mg/dL Plasma Lactic Acid Carlos 0.8 (0.7-2.0) mmol/L Calcium (8.4-10.2) mg/dL Total Bilirubin (0.2-1.3) mg/dL AST (14-36) U/L ALT (4-34) U/L Alkaline Phosphatase (38-126) U/L Total Protein (6.3-8.2) g/dL Albumin (3.5-5.0) g/dL Amylase (30-110) U/L Lipase (23-300) U/L Urine Color Urine Appearance (Clear) Urine pH (5.0-8.0) Ur Specific [place] (1.001-1.035) Urine Protein (Negative) Urine Glucose (UA) (Negative) Urine Ketones (Negative) Urine Blood (Negative) Urine Nitrite (Negative) Urine Bilirubin (Negative) Urine Urobilinogen (<2.0) mg/dL Ur Leukocyte Esterase (Negative) - Radiology Data Radiology results: report reviewed, image reviewed Disposition Clinical Impression: Diverticulitis of cecum, Leukocytosis Disposition: HOME SELF-CARE Condition: Stable Instructions (If sedation given, give patient instructions): Diverticulitis (DC), Diverticulitis Diet (ED) Additional Instructions: Please complete full course of antibiotics. Return to the ER for any new or worsening symptoms. Prescriptions: Ciprofloxacin HCl [Cipro] 500 mg PO Q12HR 5 Days #10 tab metroNIDAZOLE 500 mg PO Q8HR 5 Days #15 tablet Is patient prescribed a controlled substance at d/c from ED?: No Referrals: Mohsen Saha MD [Primary Care Provider] - 1-2 days Time of Disposition: 18:25
[2023-08-28 16:48] VITALS: PULSE 63; RESP 18; TEMP 98.8
[2023-08-28] MEDS: SODIUM CHLORIDE 0.9% 1,000 ML IV STA (17:02)
[2023-08-28] MEDS: ONDANSETRON 4 MG/2 ML VIAL IVP STA (17:03)
[2023-08-28] MEDS: HYDROmorphone 0.5 MG/0.5 ML SYRINGE IVP STA ×2 (17:05→18:07)
[2023-08-28 17:10] LABS: HCT 41.9 % (34.0-46.0); HGB 13.9 gm/dL (11.4-16.0); MCHC 33.1 g/dL (31.0-37.0); MCV 102.7 fL (80.0-100.0); Macrocytosis Slight; Mean Platelet Volume 7.8; Platelet Count 384 k/uL (150-450); RBC 4.08 m/uL (3.80-5.40); RDW 12.1 % (11.5-15.5); WBC 15.6 k/uL (3.8-10.6)
[2023-08-28 17:18] LABS: ALT 32 U/L (4-34); AST 39 U/L (14-36); African American GFR (CKD) 69 (>60 ml/min/1.73 sqM); Albumin 5.1 g/dL (3.5-5.0); Alkaline Phosphatase 71 U/L (38-126); Amylase 85 U/L (30-110); Anion Gap 9 mmol/L; Blood Urea Nitrogen 20 mg/dL (7-17); Calcium 10.5 mg/dL (8.4-10.2); Carbon Dioxide 36 mmol/L (22-30); Chloride 95 mmol/L (98-107); Glucose 89 mg/dL (74-99); Lipase 174 U/L (23-300); Non-African American GFR(CKD) 60 (>60 ml/min/1.73 sqM); Potassium 4.8 mmol/L (3.5-5.1); Sodium 140 mmol/L (137-145); Total Bilirubin 0.4 mg/dL (0.2-1.3); Total Protein 8.2 g/dL (6.3-8.2)
[2023-08-28 17:25] LABS: Appearance,Urine Clear (Clear); Bilirubin,Urine Negative (Negative); Blood,Urine Negative (Negative); Color,Urine Colorless; Glucose,Urine (UA) Negative (Negative); Ketones,Urine Negative (Negative); Leukocyte Esterase,Urine Negative (Negative); Nitrite,Urine Negative (Negative); Protein,Urine Negative (Negative); Specific Gravity,Urine 1.006 (1.001-1.035); Urobilinogen,Urine <2.0 mg/dL (<2.0)
--- NOTE | 2023-08-28 18:08 | CT ---
EXAMINATION TYPE: CT abdomen pelvis w con CT DLP: 368.9 mGycm, Automated exposure control for dose reduction was used. DATE OF EXAM: 08/28/2023 5:53 PM COMPARISON: 09/07/2022. CLINICAL INDICATION:Female, 62 years old with history of RLQ pain; RLQ pain TECHNIQUE: Axial CT abdomen pelvis w con;Sagittal and coronal reformats were created on a separate w orkstation. Contrast used:100 mL of Isovue 300 with IV Contrast, (none if empty) Oral contrast used: without Oral Contrast (none if empty) FINDINGS: LOWER CHEST: Unremarkable ABDOMEN LIVER: Unremarkable GALLBLADDER AND BILE DUCTS: Gallbladder is surgically absent with intrahepatic and extra hepatic bili jose dilatation which may be physiologic and a postcholecystectomy change. Dilation measuring up to 2 1 mm. PANCREAS: Unremarkable. SPLEEN: Unremarkable. ADRENAL GLANDS: Unremarkable. KIDNEYS AND URETERS: No evidence of hydronephrosis or renal calculus. The ureters are unremarkable. PELVIS BLADDER: Unremarkable REPRODUCTIVE: Unremarkable. ABDOMEN & PELVIS STOMACH AND BOWEL: No evidence of bowel obstruction. Scattered diverticula with one diverticulum near the cecum with fat stranding and inflammation changes. No organizing fluid collection. PERITONEUM/RETROPERITONEUM: No evidence of pneumoperitoneum or free fluid. VASCULATURE: No evidence of aortic aneurysm. MUSCULOSKELETAL: No acute osseous abnormalities. Moderate disc degeneration changes are present throu ghout the thoracolumbar spine. Findings worse at L4-L5 and L5-S1. Grade 1 anterolisthesis of L4 and L 5. Facet joint arthropathy seen throughout the spine. LYMPH NODES: No gross evidence for lymphadenopathy. SOFT TISSUE/ABDOMINAL WALL: Unremarkable IMPRESSION: 1. Acute diverticulitis of the cecum. No organizing fluid collections are identified. The appendix i s normal and situated in the nearby vicinity of the diverticulitis. 2. Cholecystectomy changes with extensive dilation of the extrahepatic and central intrahepatic bili jose system. Consider MRI MRCP if not recently performed for evaluation of the biliary system.
[2023-08-28] MEDS: HYDROmorphone 1 MG/ML 1 ML SYRINGE IVP STA (18:21)
[2023-08-28] MEDS: HYDROmorphone 1 MG/ML 1 ML SYRINGE IM STA (19:20)
[2023-08-28 19:33] VITALS: BP 182/73
== END 2023-08-28 19:22 | disposition home or self-care (01) ==
LOC: EC 16:18
DX: K57.32 Diverticulitis of large intestine without perforation or abscess without bleeding (principal); D72.829 Elevated white blood cell count, unspecified; I10 Essential (primary) hypertension; K21.9 Gastro-esophageal reflux disease without esophagitis; J45.909 Unspecified asthma, uncomplicated; F41.9 Anxiety disorder, unspecified; F12.90 Cannabis use, unspecified, uncomplicated; Z87.891 Personal history of nicotine dependence; Z79.899 Other long term (current) drug therapy; Z88.0 Allergy status to penicillin; Z88.8 Allergy status to other drugs, medicaments and biological substances; Z88.1 Allergy status to other antibiotic agents; Z88.6 Allergy status to analgesic agent
CPT/HCPCS: 36415; 80053; 82150; 83605; 83690; 85027; 81003; 87040; 74177; 99284; 96374; 96375 ×2; 96376; 96361; 96372; J2405; J1170 ×2; Q9967

== ENCOUNTER → 2023-10-07 | Outpatient (CLI) | payer MEDICARE ==
[2023-10-07] MEDS: DENOSUMAB 60 MG/ML 1 ML SYRINGE SQ NR (10:11)
[2023-10-07 10:19] VITALS: BP 169/71; PULSE 58; RESP 14; TEMP 98.3
== END ==
LOC: PROCWHC3 09:46
PROVIDERS: ATTEND Internal Medicine
DX: M81.0 Age-related osteoporosis without current pathological fracture (principal)
CPT/HCPCS: 96372; J0897

== ENCOUNTER → 2023-12-30 | Outpatient (CLI) | payer MEDICARE ==
--- NOTE | 2023-12-30 14:20 | FL ---
EXAMINATION TYPE: FL barium swallow DATE OF EXAM: 12/30/2023 COMPARISON: None HISTORY: Dysphasia TECHNIQUE: A double air contrast esophagram study is performed. FINDINGS: Esophagus testosterone caliber is normal contour gastroesophageal junction. Multiple tertiary contrac tions are evident within the distal esophagus. The exam. No reflux was evident. There appears to be some persistence of contrast within the left piriform sinus during the examinatio n. While this was present patient complained of sticking. No obvious aspiration evident. IMPRESSION: 1. There is some persistent contrast within the left piriform sinus during the swallowing which appea red to correlate with the patient's symptoms. 2. Mild presbyesophagus
== END | disposition home or self-care (01) ==
LOC: RADUSWWP 10:41
PROVIDERS: ATTEND Otolaryngology Plastic Surgery within the Head & Neck
DX: K22.89 Other specified disease of esophagus (principal); R13.10 Dysphagia, unspecified
CPT/HCPCS: 74220

== ENCOUNTER → 2024-01-01 | Day surgery (SDC) | payer MEDICARE ==
[2023-12-27 14:07] VITALS: BMI 18.0
[~2024-01-01] MED LIST changes: -DENOSUMAB 60 MG/ML 1 ML SYRINGE SQ NR; +LIDOCAINE 1% (10MG/ML) FOR IV START INTRADERMA PRN; +PROPOFOL 10 MG/ML 20 ML VIAL IV ONE
[2024-01-01 13:43] VITALS: TEMP 97.7
[2024-01-01] MEDS: IV FLUID CONTINUATION 1,000 ML IV ONE (13:43)
[2024-01-01] MEDS: LACTATED RINGERS 1,000 ML IV SCH (13:44)
[2024-01-01] MEDS: MEPERIDINE 50 MG/ML SYRINGE IVP ONE (13:57)
--- NOTE | 2024-01-01 14:28 | P.PCN ---
Date of Procedure: 01/01/24 Procedure(s) Performed: BRIEF HISTORY: Patient is a 63-year-old pleasant white female scheduled for an elective colonoscopy as a part of evaluation of lower abdominal pain and change in bowel habits on and off for the last several years duration PROCEDURE PERFORMED: Colonoscopy. PREOPERATIVE DIAGNOSIS: Lower abdominal pain and change in bowel habit. IV sedation per Anesthesia. PROCEDURE: After informed consent was obtained, the patient, was brought into the endoscopy unit. IV sedation was administered by Anesthesia under continuous monitoring. Digital rectal examination was normal. Initially the Olympus CF-160 flexible video colonoscope was then inserted in the rectum, gradually advanced into the cecum without any difficulty. Careful examination was performed as the scope was gradually being withdrawn. Ileocecal valve and the appendiceal orifice were visualized and appeared normal. Prep was fair.. Mucosa of the cecum, ascending colon, transverse colon, descending colon, sigmoid colon, and rectum appeared normal. Retroflexion was performed in the rectum and no lesions were seen. The patient tolerated the procedure well. IMPRESSION: Normal-appearing colon from rectum to cecum with no evidence of colorectal neoplasia Scattered sigmoid diverticulosis. RECOMMENDATIONS: Findings of this examination were discussed with the patient as well as her family.. Advised to continue with stool softeners and fiber supplements on a regular basis. Recommend repeat screening colonoscopy in 10 years.
[2024-01-01 14:35] VITALS: RESP 16
[2024-01-01 14:50] VITALS: BP 101/56; PULSE 59
== END ==
LOC: ORWHC2ENDO 12:16
PROVIDERS: ATTEND Internal Medicine Gastroenterology
DX: K57.30 Diverticulosis of large intestine without perforation or abscess without bleeding (principal); I10 Essential (primary) hypertension; E78.5 Hyperlipidemia, unspecified; E07.9 Disorder of thyroid, unspecified; N28.9 Disorder of kidney and ureter, unspecified; G89.29 Other chronic pain; Z79.890 Hormone replacement therapy; Z79.899 Other long term (current) drug therapy; Z90.49 Acquired absence of other specified parts of digestive tract; Z88.5 Allergy status to narcotic agent; Z88.1 Allergy status to other antibiotic agents; Z88.8 Allergy status to other drugs, medicaments and biological substances
CPT/HCPCS: 45378; J2175; J2704

== ENCOUNTER → 2024-01-27 | Outpatient (CLI) | payer MEDICARE ==
--- NOTE | 2024-01-27 13:22 | CTL ---
EXAMINATION TYPE: CT Low Dose Lung DATE OF EXAM ORDERED: 01/27/2024 HISTORY: Personal history of tobacco use, 40 pack-year history, quit 2 years ago. Lung cancer screeni ng CT DLP: 51.[address] CTDI: 1.3 mGy Automated exposure control for dose reduction was used. SCREENING VISIT: First screening visit COMPARISON: None TECHNIQUE: Low dose computed tomography scan was performed through the chest at 1 mm thick sections a nd reconstructed images in multiple planes at 1 mm and [address] DIAGNOSTIC QUALITY: Satisfactory FINDINGS: Nodules: Left upper lobe peripheral 3.3 mm pulmonary nodule (series 6, image 22). Superior segment left lower lobe 3.1 mm pulmonary nodule (series 6, image 26). LUNGS: COPD: Severity: None Fibrosis: Severity: None Lymph nodes: None Other findings: None RIGHT PLEURAL SPACE: Effusion: None Calcification: None Thickening: None Pneumothorax: None LEFT PLEURAL SPACE: Effusion: None Calcification: None Thickening: None Pneumothorax: None HEART: Heart Size: Normal Coronary Calcification: Mild to moderate Pericardial Effusion: None OTHER FINDINGS: Upper abdomen: None Bony thorax: No acute process. Partial visualization of cervical fusion hardware. Supraclavicular region: None Other: Bilateral breast prosthesis. Atherosclerotic calcification of the aorta and its branches. IMPRESSION: Couple of pulmonary nodules measuring less than [address] LUNG RAD AND [address] CHEST RECOMMENDATION: Lung-Rad 2 Benign Appearance or Behavior: Continue annual sc reening with LDCT in 12 months. S Modifier (other clinically significant findings): None
== END | disposition home or self-care (01) ==
LOC: RADCTMAIN 11:54
PROVIDERS: ATTEND Internal Medicine
DX: Z87.891 Personal history of nicotine dependence (principal); Z12.2 Encounter for screening for malignant neoplasm of respiratory organs; R91.8 Other nonspecific abnormal finding of lung field
CPT/HCPCS: 71271

== ENCOUNTER → 2024-10-19 | Outpatient (CLI) | payer MEDICARE ==
--- NOTE | 2024-10-19 16:39 | MM ---
Reason for Exam: Screening (asymptomatic). Last mammogram was performed 1 year(s) and 3 month(s) ago. Patient History: Menarche at age 14. First Full-Term at age 26. Right ovary removed at age 45. Hysterectomy at age 31. Postmenopausal. Other cancer, age 26. Hormonal Contraceptives, starting at age 21 for 9 years. Cyst Aspiration on the Right side. 2003, Benign Excisional Biopsy on the right side. 09/21/2021, US discontinued breast core RT on the right side. 09/20/2005, Bilateral Implants. Maternal grandmother had breast cancer, age 84. Risk Values: Aditi 5 year model risk: 2.1%. NCI Lifetime model risk: 8.7%. Prior Study Comparison: 09/21/2021 Bilateral MG diagnostic mammo w CAD JULISSA - 2, [facility]. 07/02/2022 Bilateral MG diag mamm implants JULISSA w CAD, [facility]. 08/07/2023 Bilateral MG 3D screen mammo imp/cad., [facility]. Tissue Density: The breasts are heterogeneously dense, which may obscure small masses. Findings: Analyzed By CAD. Bilateral retropectoral saline implants. There is no suspicious group of microcalcifications or new suspicious mass in either breast. Overall Assessment: Negative, BI-RAD 1 Management: Screening Mammogram of both breasts in 1 year. Patient should continue monthly self-breast exams. A clinical breast exam by your physician is recommended on an annual basis. This exam should not preclude additional follow-up of suspicious palpable abnormalities. Note on Aditi scores and lifetime risk: 1. A Aditi score greater than 3% is considered moderate risk. If this is the case, consider specialist referral to assess eligibility for a risk reducing agent. 2. If overall lifetime risk for the development of breast cancer is 20% or higher, the patient may qualify for future screening with alternating mammogram and breast MRI. [facility], , 10/19/2024 4:36 PM. Electronically signed and approved by: Radu Wallace M.D. Radiologist
== END | disposition home or self-care (01) ==
LOC: RADMAMWWP 11:56
PROVIDERS: ATTEND Internal Medicine
DX: Z12.31 Encounter for screening mammogram for malignant neoplasm of breast (principal); R92.333 Mammographic heterogeneous density, bilateral breasts; Z80.3 Family history of malignant neoplasm of breast; Z78.0 Asymptomatic menopausal state; Z98.82 Breast implant status; Z92.0 Personal history of contraception
CPT/HCPCS: 77063; 77067

== ENCOUNTER → 2024-11-11 | Outpatient (CLI) | payer MEDICARE ==
--- NOTE | 2024-11-11 13:40 | XR ---
EXAMINATION TYPE: XR abdomen 2V DATE OF EXAM: 11/11/2024 12:15 PM COMPARISON: None CLINICAL INDICATION: Female, 64 years old with history of R10.84 Abdominal pain; [facility] TECHNIQUE: Two views of the abdomen were obtained. FINDINGS: Lung bases appear clear. Cholecystectomy clips. Gassy abdomen with moderate overall stool. Air and stool extends distally to the rectum. No dilated small bowel loops are seen. Either some calcifications or surgical clips in the left side of the pelvis. IMPRESSION: Moderate stool burden, possible constipation. Nonobstructive bowel gas pattern. Status post cholecyst ectomy. [facility], Workstation: [email or web address], 11/11/2024 1:38 PM
== END | disposition home or self-care (01) ==
LOC: RADXRMAIN 11:58
PROVIDERS: ATTEND Internal Medicine Gastroenterology
DX: Z90.49 Acquired absence of other specified parts of digestive tract (principal)
CPT/HCPCS: 74019

== ENCOUNTER → 2025-01-19 | Outpatient (CLI) | payer MEDICARE ==
--- NOTE | 2025-01-19 13:16 | FL ---
EXAMINATION TYPE: FL UGI air w small bowel DATE OF EXAM: 01/19/2025 COMPARISON: Prior esophagram December 30, 2023 CLINICAL INDICATION: Female, 64 years old with history of R10.84 GENERAL ABD PAIN; PHH, severe consti pation. Patient on long-term reflux medication. TECHNIQUE: A double contrast FL UGI air w small bowel study is performed with small bowel follow thr ough. A total of 1 minute 40 seconds of fluoroscopic time was utilized during procedure and 115 imag es obtained. Total dose area product (DAP) in uGy*m?, mGy*cm? (or similar): n/p. FINDINGS: Hospital Director image of the abdomen shows cholecystectomy clips. There is overall nonobstructive milly wel gas pattern. Surgical clips in the left pelvis are seen. The esophagus shows adequate motility and emptying into the stomach. There is moderate dilatation of the proximal to mid esophagus redemonstrated. No evidence of fixed hiatal hernia or stricture noted. Surgical changes to the lower cervical spine are redemonstrated. The stomach shows adequate distensibility, peristalsis, and mucosal folds. No evidence of any mass o r ulcer disease. No significant gastroesophageal reflux was seen during real time performance of thi s study. The duodenal bulb and sweep are unremarkable. The small bowel study shows normal transit to the colon in less than 90 minutes. There is normal muc osal fold pattern throughout the small bowel. There is no evidence of any stricture or filling defec t noted. The terminal ileum is spotted and appears unremarkable. IMPRESSION: No suspicious findings seen to account for patient's symptoms. [facility], , 01/19/2025 1:13 PM
== END | disposition home or self-care (01) ==
LOC: RADFLMAIN 08:33
PROVIDERS: ATTEND Internal Medicine Gastroenterology
DX: R10.84 Generalized abdominal pain (principal)
CPT/HCPCS: 74240; 74248

== ENCOUNTER → 2025-01-26 | Outpatient (CLI) | payer MEDICARE ==
[2025-01-26 19:58] LABS: Calcium 9.2 mg/dL (8.7-10.3)
== END | disposition home or self-care (01) ==
LOC: LABWHC1 13:02
PROVIDERS: ATTEND Internal Medicine
DX: M81.0 Age-related osteoporosis without current pathological fracture (principal)
CPT/HCPCS: 36415; 82306; 82310

== ENCOUNTER → 2025-01-27 | Outpatient (CLI) | payer MEDICARE ==
[2025-01-27] MEDS: DENOSUMAB 60 MG/ML 1 ML SYRINGE SQ NR (13:10)
[2025-01-27 13:19] VITALS: BP 115/63; PULSE 59; RESP 16; TEMP 97.7
== END ==
LOC: PROCWHC3 13:00
PROVIDERS: ATTEND Internal Medicine
DX: M81.0 Age-related osteoporosis without current pathological fracture (principal)
CPT/HCPCS: 96372; J0897